=== PATIENT | female | born 1960 | race Caucasian/White ===

== ENCOUNTER → 2016-06-24 | Outpatient (CLI) | payer OTHER ==
[2015-10-14 16:52] VITALS: BP 131/81
[~2016-06-24] MED LIST: CYCL10TA2 PO; DULO60CA44 PO; ESOM40CA PO; ESTR1TAB15 PO; GABA800T2 PO; HYDR-2666 PO; MELO-150 PO; OXYC10TA32 PO; SULF1TAB24 PO; ZOLP10TA4 PO
[2016-06-24 11:46] LABS: CALCIUM 9.5 mg/dL (8.5-10.1); CREATININE 0.7 mg/dL (0.6-1.0); GFR 87.5; POTASSIUM 4.4 mmol/L (3.5-5.1)
--- NOTE | 2016-06-24 11:54 | RAD ---
Renal ultrasound, 06/24/2016: History: Urinary retention The right kidney measures 10.7 cm in length while left kidney measures 10.3 cm. There is no evidence of hydronephrosis or renal mass. The renal parenchymal echogenicity is within normal limits. Preliminary views of urinary bladder demonstrates a volume of 186 cc. No specific bladder abnormality is seen. A post voiding view demonstrates complete bladder emptying. IMPRESSION: 1. No significant renal abnormality is detected. 2. No significant post voiding residual urine in the bladder.
== END | disposition home or self-care (01) ==
LOC: US 10:20
PROVIDERS: ATTEND Nurse Practitioner Occupational Health
DX: R33.9 Retention of urine, unspecified (principal)
CPT/HCPCS: 36415; 76770; 80048

== ENCOUNTER → 2016-08-05 | Outpatient (CLI) | payer OTHER, MEDICARE ==
[2015-10-14 16:52] VITALS: BP 131/81
[2016-08-05 13:33] LABS: BASO % 1 % (0-3); EOS % 5 % (0-3); HEMATOCRIT 35.9 % (36.0-47.0); HEMOGLOBIN 11.2 g/dL (12.0-15.5); LYMPH # 1.7 x10^3/uL (1.0-4.8); LYMPH % 25 % (24-48); MEAN CORPUSCULAR HEMOGLOBIN 24 pg (25-35); MEAN CORPUSCULAR HGB CONC 31 g/dL (31-37); MEAN CORPUSCULAR VOLUME 78 fL (79-100); MONO % 6 % (0-9); NEUT % 63 % (31-73); PLATELET COUNT 219 x10^3/uL (140-400); RED BLOOD COUNT 4.62 x10^6/uL (3.50-5.40); RED CELL DISTRIBUTION WIDTH 17.3 % (11.5-14.5); WHITE BLOOD COUNT 6.8 x10^3/uL (4.0-11.0)
[2016-08-05 13:58] LABS: ALBUMIN 3.8 g/dL (3.4-5.0); CALCIUM 9.1 mg/dL (8.5-10.1); CREATININE 0.8 mg/dL (0.6-1.0); POTASSIUM 4.2 mmol/L (3.5-5.1); TOTAL BILIRUBIN 0.4 mg/dL (0.2-1.0); TOTAL PROTEIN 7.7 g/dL (6.4-8.2)
== END | disposition home or self-care (01) ==
LOC: LAB 12:44
PROVIDERS: ATTEND Nurse Practitioner Adult Health
DX: M79.7 Fibromyalgia (principal); M06.9 Rheumatoid arthritis, unspecified
CPT/HCPCS: 36415; 80053; 80061; 84443; 85027; 85651

== ENCOUNTER 2016-11-19 17:28 | Emergency (ER) | payer OTHER, MEDICARE ==
[~2016-11-19] VITALS: Ht 172.7 cm; Wt 106.6 kg
[~2016-11-19 17:28] MED LIST changes: -HYDR-2666 PO; +HYDR-2758 PO; -MELO-150 PO; +MELO15TA23 PO; -OXYC10TA32 PO; +OXYC10TA45 PO
[2016-11-19 17:40] VITALS: BP 124/60
--- NOTE | 2016-11-19 17:59 | PHYS DOC ---
Past Medical History Past Medical History: Arthritis, Fibromyalgia, GERD, Other Additional Past Medical Histor: rheumatoid and osteoarthritis, tmj Past Surgical History: Hysterectomy, Knee Replacement, Other Additional Past Surgical Histo: bilat knees, rt wrist cyst, lt. lumpectomy, bladder sling Alcohol Use: Occasionally Drug Use: None General Pediatric Assessment History of Present Illness History of Present Illness 56-year-old female presents to the emergency department stating that she fell last night on the deck and felt that she has a splinter in her right forearm. The area appears to be red swollen tender to touch with no drainage or discharge noted. No visible foreign body noted at the site. Patient states that her immunizations are not current and she is allergic to tetanus. Patient denies any numbness or tingling into the hands. Peripheral pulses are 2+ cap refill brisk less than 2 seconds. Review of Systems Review of Systems Constitutional: Denies fever or chills [] Eyes: Denies change in visual acuity, redness, or eye pain [] HENT: Denies nasal congestion or sore throat [] Respiratory: Denies cough or shortness of breath [] Cardiovascular: No additional information not addressed in HPI [] GI: Denies abdominal pain, nausea, vomiting, bloody stools or diarrhea [] : Denies dysuria or hematuria [] Musculoskeletal: Denies back pain or joint pain [] Integument: Denies rash or skin lesions. Complaint of foreign body right forearm Neurologic: Denies headache, focal weakness or sensory changes [] Endocrine: Denies polyuria or polydipsia [] Allergies Allergies Allergies Coded Allergies Type Severity Reaction Last Updated Verified Tetanus Vaccines and Toxoid Allergy Intermediate 11/18/14 Yes Physical Exam Physical Exam Constitutional: Well developed, well nourished, no acute distress, non-toxic appearance, positive interaction, playful. [] HENT: Normocephalic, atraumatic, bilateral external ears normal, oropharynx moist, no oral exudates, nose normal. [] Eyes: PERRLA, conjunctiva normal, no discharge. [] Neck: Normal range of motion, no tenderness, supple, no stridor. [] Cardiovascular: Normal heart rate, normal rhythm Thorax and Lungs: no respiratory distress Skin: Warm, dry, no erythema, no rash. Right forearm with redness and tenderness noted with no drainage or discharge noted no foreign body visualized. Back: No tenderness Extremities: Intact distal pulses, no tenderness, no cyanosis, ROM intact, no edema, no deformities. [] Neurologic: Alert and interactive, normal motor function, normal sensory function, no focal deficits noted. [] Vital Signs Vital Signs Date Time Temp Pulse Resp B/P (MAP) Pulse Ox O2 Delivery O2 Flow Rate FiO2 11/19/16 17:40 98.2 83 16 96 Room Air 98.2 Radiology/Procedures Radiology/Procedures [] Course & Med Decision Making Course & Med Decision Making Pertinent Labs and Imaging studies reviewed. (See chart for details) Dr. Ferrara evaluated the x-ray of the arm and he agrees there is no foreign bodies noted. He did come in and examine the patient and feels that he can palpate the foreign body. He will be providing lidocaine with epi and will be placing an incision and and exploring the area for a foreign body. Foreign body was removed by Dr. Ferrara. Patient will be placed on antibiotics Bactrim 1 tablet twice a day for the next 10 days. Recommended keeping the area clean and dry. Clean the site with soap and water and apply antibiotic ointment to the area twice a day. Patient will be discharged home in stable condition signs and symptoms to return back to emergency department as been provided. Questions for this patient has been answered at bedside. Procedure note Foreign body removal right forearm. A palpable foreign body was palpated just below puncture wound and subcutaneous tissue. Area was sterilely prepped with Betadine. 1% lidocaine with epinephrine was injected into this area following which a #11 blade was used to make An centimeter superficial incision. Wood splinter was then palpated and successfully removed with forceps. The cavity was then irrigated and reexplored with no other remaining foreign bodies present. The wound was not closed. Bacitracin was placed on top the wound and it was then bandaged. Typical wound care instructions given. Patient discharged with instruction with antibiotics. Dr. Josias Booth Disclaimer Emmy Disclaimer This electronic medical record was generated, in whole or in part, using a voice recognition dictation system. Departure Departure Impression: Primary Impression: Foreign body in right forearm Disposition: 01 HOME, SELF-CARE Condition: STABLE Referrals: MARISOL BOWEN Jr, MD (PCP) Patient Instructions: Foreign Body-Brief Additional Instructions: Keep the area clean and dry. Clean the site with soap and water twice a day and apply antibiotic ointment to the area. Antibiotic pills as prescribed: Bactrim. Tylenol or ibuprofen for pain and discomfort. He may also use ice packs on 20 minutes off 20 minutes several times today. Continue to watch for signs and symptoms of infection: Redness, warmth, tenderness or any yellow/greenish drainage of a come from the site. Physician occur you need to follow-up to primary care physician immediately. Follow-up through primary care physician in the next week to 2. Return back to emergency prior signs symptoms of become worse. Scripts Sulfamethoxazole/Trimethoprim (BACTRIM DS TABLET) 1 Each Tablet 1 TAB PO BID, #20 TAB Prov: DENISSE CAMPBELL APRN 11/19/16 DENISSE CAMPBELL APRN Nov 19, 2016 17:59 KAMILA FERRARA DO Nov 19, 2016 19:42
[2016-11-19] MEDS ORDERED: LIDOCAINE 1%/EPI 1:100,000 20 ML VIAL. INJ ONE ×2 (18:45)
[2016-11-19] MEDS ORDERED: SULF1TAB24 PO (19:07)
[2016-11-19] MEDS ORDERED: NEOMY/BACITR/POLYMYXIN OINT PACKET. TP ONE (19:12)
[2016-11-19] MEDS ORDERED: BACITRACIN TOPICAL OINT 14GM TUBE. TP ONE (19:15)
--- NOTE | 2016-11-20 10:25 | RAD ---
AP and lateral right forearm radiographs 11/19/2016 Clinical history: Splinter stuck in right forearm. AP and lateral digital radiographs of the right forearm were obtained. A partially visualized linear foreign body which may represent the patient's splinter is seen extending into the soft tissues of the distal right forearm. No fracture or dislocation is seen. Impression: Foreign body is seen as outlined above. No fracture or dislocation is seen.
== END 2016-11-19 19:15 | disposition home or self-care (01) ==
LOC: ER 17:28
DX: S50.851A Superficial foreign body of right forearm, initial encounter (principal); M19.90 Unspecified osteoarthritis, unspecified site; M79.7 Fibromyalgia; K21.9 Gastro-esophageal reflux disease without esophagitis; Z96.653 Presence of artificial knee joint, bilateral; Z88.7 Allergy status to serum and vaccine; Z90.710 Acquired absence of both cervix and uterus; Z96.0 Presence of urogenital implants; W45.8XXA Other foreign body or object entering through skin, initial encounter; Y93.89 Activity, other specified; Y92.89 Other specified places as the place of occurrence of the external cause; Y99.8 Other external cause status
CPT/HCPCS: 10120; 73090; 99285; J3490

== ENCOUNTER → 2017-03-10 | Outpatient (CLI) | payer OTHER, MEDICARE ==
[~2017-03-10] MED LIST changes: +DICY10CA3 PO; +FEXO180T81 PO; +IOHEXOL 180 MG/ML 10 ML VIAL. ONE; +methylPREDNISolone ACETATE 40 MG/ML VIAL. ONE; +methylPREDNISolone ACETATE 80 MG/ML VIAL. ONE
--- NOTE | 2017-03-10 18:38 | PAIN ---
DATE OF SERVICE: 03/10/2017 PROGRESS NOTE FOR PAIN CLINIC: DIAGNOSES: 1. Lumbago with low back pain, lumbar radiculopathy and lumbar degenerative disk disease. 2. Myofascial pain. HISTORY OF PRESENT ILLNESS: The patient is a 56-year-old female who returns for followup status post initial evaluation and medication management with oxycodone and hydrocodone. We discussed decreasing her doses and she has been doing this on her own to some extent where she is not needing as much pain medicine. She has been using some hemp seed oil, which has been helpful as well. The patient reports significant decrease in pain with this. She has been decreasing her OxyContin. We discussed dropping that from twice a day to once a day and the use of the hydrocodone 5 mg for breakthrough pain. The patient has been doing this with fairly good results so far. The patient reports about 40% improvement with the hemp seed oil and with the decrease in pain medication. The patient reports no new motor or sensory deficits, no new changes. We did get an MRI scan of the patient's lumbar spine. She had significant lumbar pain and radicular pain in the posterior gluteus and thighs for sometime discussed that with the patient today showing a L1-L2 5 mm right paracentral inferior disk extrusion superimposed on the right lateral prominent disk bulge and endplate osteophytosis at L4-L5 showing diffuse disk bulge with some mild to moderate right and moderate left foraminal stenosis and effacement of the exiting L4 nerve root with [id number] central canal stenosis. L5-S1 posterior central disk protrusion and bilateral paracentral to extraforaminal disk protrusions superimposed on disk bulge and endplate osteophytosis with severe to moderate left foraminal stenosis and effacement of the exiting left greater than right L5 nerve roots. The patient reports still some difficulty with walking, standing and changing positions, better with lying down or sitting. The patient reports it does not awaken her from sleep at night and the pain is across the low back into the posterior gluteus, posterior thighs to a fairly significant extent at this time. The patient rates her pain as an 8-9 on a scale of 10 at its worst, it is a 7 on average and a 4 at least and is a 4 today. No new motor or sensory deficits or changes are noted. PHYSICAL EXAMINATION: VITAL SIGNS: The patient's blood pressure 135/83, pulse 77, respirations 18, temperature 98.4 degrees Fahrenheit. Height 5 feet 8 inches, weight is 219 pounds. GENERAL: The patient is awake, alert, oriented, appropriate, very pleasant demeanor. HEENT: Head shows normocephalic, atraumatic. Extraocular movements are intact, symmetrical. Oral cavity: Mucous membranes moist and pink. Dentition is intact. NECK: Shows anterior throat supple without palpable lymphadenopathy noted. Swallow reflex symmetrical. CHEST: Shows normal on inspection. Breath sounds clear to auscultation bilaterally. HEART: Shows S1, S2 clear. No murmurs auscultated. ABDOMEN: Obese and soft, nontender, nondistended. No palpable organomegaly. No rebound or guarding demonstrated. BACK: Shows spine grossly in the midline. The patient's thoracic and lumbar spines are normal in curvature. Lumbar paraspinous muscle shows symmetrical with inspection, with palpation shows some moderate tenderness throughout the upper, middle, lower distribution of paraspinous muscles bilaterally. No tenderness with palpation over the sacrum or sacroiliac regions, however. The patient has good rotational motion of lumbar spine, both laterally as well as extension and flexion without significant difficulty. EXTREMITIES: Lower extremities show deep tendon reflexes 2+ in the patellar tendons, 1+ tendo calcaneus tendons. Motor exam shows approximately 4-5 and equal and symmetrical bilaterally, dorsiflexion, extension and quadriceps and hamstring flexion. Peripheral pulses are 1+ posterior tibia. No peripheral edema is noted. Options were discussed with the patient. The patient's old chart was reviewed as her current medication regimen updated her review of systems updated today as well. We will proceed with a lumbar epidural steroid injection today with fluoroscopic guidance. Risks were discussed including but not limited to bleeding, infection, possibility of epidural hematoma, subsequent neurologic compromise, dural puncture, headaches, spinal cord and/or nerve damage, side effects of steroid medication and poor results regarding pain control. The patient understands and wished to proceed. The patient will return to clinic in approximately 2 weeks for followup. She was counseled troponin still on side effects to be aware of. Also, encouraged the patient to decrease her oxycodone and hydrocodone use as tolerated. We will refill the patient's prescriptions for just once a day, OxyContin and in between breakthrough pain for hydrocodone up to 4 times a day if needed. The patient will continue to use her hemp seed oil as this seems to help her pain significantly as well. We increased with stretching and strengthening exercises encouraged to walk and exercise as tolerated and will follow up as scheduled. DIAGNOSES: Low back pain, lumbar radiculopathy with lumbar degenerative disk disease, and lumbar spinal stenosis. PROCEDURE: Lumbar epidural steroid injection, translaminar approach under serum fluoroscopic guidance under sterile prep and drape using local anesthetic. Medication injected a total of 120 mg Depo-Medrol plus 10 mL preservative-free normal saline, 2 mL of Isovue for contrast. CONDITION AT DISCHARGE: Stable. The patient tolerated the procedure well, had no complications. ABILIO SIDDIQUI MD DR: JUNE/sofia JOB#: [id number] / [id number]
== END | disposition home or self-care (01) ==
LOC: PNCL 10:15
PROVIDERS: ATTEND Anesthesiology
DX: M51.16 Intervertebral disc disorders with radiculopathy, lumbar region (principal); M48.061 Spinal stenosis, lumbar region without neurogenic claudication; Z88.7 Allergy status to serum and vaccine; Z88.8 Allergy status to other drugs, medicaments and biological substances
CPT/HCPCS: 62323; J1030; J1040

== ENCOUNTER → 2017-07-06 | Outpatient (CLI) | payer OTHER, MEDICARE ==
[~2017-07-06] MED LIST changes: -CYCL10TA2 PO; -DICY10CA3 PO; -DULO60CA44 PO; -ESOM40CA PO; -ESTR1TAB15 PO; -FEXO180T81 PO; -GABA800T2 PO; -HYDR-2758 PO; +IOHEXOL 180 MG/ML 10 ML VIAL.; -IOHEXOL 180 MG/ML 10 ML VIAL. ONE; -MELO15TA23 PO; -OXYC10TA45 PO; -SULF1TAB24 PO; -ZOLP10TA4 PO; +methylPREDNISolone ACETATE 40 MG/ML VIAL.; -methylPREDNISolone ACETATE 40 MG/ML VIAL. ONE; +methylPREDNISolone ACETATE 80 MG/ML VIAL.; -methylPREDNISolone ACETATE 80 MG/ML VIAL. ONE
== END | disposition home or self-care (01) ==
LOC: PNCL 09:54
DX: M51.16 Intervertebral disc disorders with radiculopathy, lumbar region (principal); M48.061 Spinal stenosis, lumbar region without neurogenic claudication; G89.29 Other chronic pain; Z79.891 Long term (current) use of opiate analgesic; Z79.899 Other long term (current) drug therapy
CPT/HCPCS: 62323; J1030; J1040; Q9965

== ENCOUNTER → 2017-08-24 | Outpatient (CLI) | payer OTHER, MEDICARE | LOC: PNCL 09:29 | DX: M51.16 Intervertebral disc disorders with radiculopathy, lumbar region (principal); M48.061 Spinal stenosis, lumbar region without neurogenic claudication; M79.1 Myalgia | CPT/HCPCS: 62323; J1030; J1040; Q9965 ==

== ENCOUNTER 2017-09-30 13:19 | Emergency (ER) | payer OTHER, MEDICARE ==
[2017-09-30] MEDS: MORPHINE SULFATE 10 MG/ML VIAL. IM (13:52)
[2017-09-30] MEDS: predniSONE 20 MG TABLET PO (13:52)
[2017-09-30] MEDS: diazePAM 5 MG TABLET PO (13:53)
== END 2017-09-30 15:03 | disposition home or self-care (01) ==
LOC: ER 13:19
DX: G89.29 Other chronic pain (principal); M54.5 Low back pain; K21.9 Gastro-esophageal reflux disease without esophagitis; Z90.710 Acquired absence of both cervix and uterus; M79.7 Fibromyalgia; M19.90 Unspecified osteoarthritis, unspecified site; Z88.7 Allergy status to serum and vaccine
CPT/HCPCS: 96372; 99283; J2270; J7512

== ENCOUNTER 2017-10-15 09:27 | Emergency (ER) | payer OTHER, MEDICARE | END 2017-10-15 10:34 | disposition home or self-care (01) | LOC: ER 10:34 | DX: G89.29 Other chronic pain (principal); K21.9 Gastro-esophageal reflux disease without esophagitis; M54.89 Other dorsalgia; M54.32 Sciatica, left side; F31.9 Bipolar disorder, unspecified; Z90.710 Acquired absence of both cervix and uterus | CPT/HCPCS: 99283 ==

== ENCOUNTER → 2017-10-23 | Outpatient (CLI) | payer OTHER, MEDICARE ==
[~2017-10-23] MED LIST changes: +LIDOCAINE 1% PF 2 ML VIAL.
== END ==
LOC: PNCL 08:59
DX: M51.16 Intervertebral disc disorders with radiculopathy, lumbar region (principal); M48.061 Spinal stenosis, lumbar region without neurogenic claudication; K21.9 Gastro-esophageal reflux disease without esophagitis; G89.29 Other chronic pain; M19.90 Unspecified osteoarthritis, unspecified site; Z88.7 Allergy status to serum and vaccine; Z90.710 Acquired absence of both cervix and uterus; Z79.899 Other long term (current) drug therapy
CPT/HCPCS: 62323; J1030; J1040; Q9965

== ENCOUNTER → 2017-10-27 | Outpatient (CLI) | payer OTHER, MEDICARE | END | disposition home or self-care (01) | LOC: KCIC MRI 14:35 | DX: M51.36 Other intervertebral disc degeneration, lumbar region (principal); M48.061 Spinal stenosis, lumbar region without neurogenic claudication; J44.9 Chronic obstructive pulmonary disease, unspecified; K21.9 Gastro-esophageal reflux disease without esophagitis | CPT/HCPCS: 72148 ==

== ENCOUNTER → 2017-11-06 | Outpatient (CLI) | payer OTHER, MEDICARE ==
[2017-11-06 16:00] LABS: ADD MAN DIFF? NO
[2017-11-06 16:02] LABS: BASO # 0.1 x10^3/uL (0.0-0.2); BASO % 1 % (0-3); EOS # 0.1 x10^3/uL (0.0-0.7); EOS % 1 % (0-3); HEMATOCRIT 37.6 % (36.0-47.0); HEMOGLOBIN 12.3 g/dL (12.0-15.5); LYMPH # 2.2 x10^3/uL (1.0-4.8); LYMPH % 21 % (24-48); MEAN CORPUSCULAR HEMOGLOBIN 27 pg (25-35); MEAN CORPUSCULAR HGB CONC 33 g/dL (31-37); MEAN CORPUSCULAR VOLUME 82 fL (79-100); MONO # 0.6 x10^3/uL (0.0-1.1); MONO % 6 % (0-9); NEUT # 7.5 x10^3uL (1.8-7.7); NEUT % 72 % (31-73); PLATELET COUNT 284 x10^3/uL (140-400); RED CELL DISTRIBUTION WIDTH 16.1 % (11.5-14.5); WHITE BLOOD COUNT 10.5 x10^3/uL (4.0-11.0)
[2017-11-06 16:31] LABS: ALBUMIN 3.7 g/dL (3.4-5.0); ALBUMIN/GLOBULIN RATIO 0.9 (1.0-1.7); ALK PHOS 105 U/L (46-116); ALT (SGPT) 31 U/L (14-59); ANION GAP 9 (6-14); AST (SGOT) 19 U/L (15-37); BLOOD UREA NITROGEN 23 mg/dL (7-20); BUN/CREATININE RATIO 29 (6-20); CALCIUM 8.8 mg/dL (8.5-10.1); CARBON DIOXIDE 28 mmol/L (21-32); CHLORIDE 102 mmol/L (98-107); CREATININE 0.8 mg/dL (0.6-1.0); GFR 74.5; GLUCOSE 90 mg/dL (70-99); SODIUM 139 mmol/L (136-145); TOTAL BILIRUBIN 0.5 mg/dL (0.2-1.0); TOTAL PROTEIN 7.6 g/dL (6.4-8.2)
[2017-11-07 07:39] LABS: MRSA BY PCR Negative (Negative)
== END | disposition home or self-care (01) ==
LOC: SURGPAT 13:35
DX: Z01.818 Encounter for other preprocedural examination (principal); M51.16 Intervertebral disc disorders with radiculopathy, lumbar region; J44.9 Chronic obstructive pulmonary disease, unspecified; K21.9 Gastro-esophageal reflux disease without esophagitis; Z90.710 Acquired absence of both cervix and uterus; Z96.653 Presence of artificial knee joint, bilateral; Z88.7 Allergy status to serum and vaccine
CPT/HCPCS: 36415; 80053; 85025; 87641

== ENCOUNTER 2017-11-13 08:13 | Observation (INO) | payer MEDICARE, OTHER ==
--- NOTE | 2017-11-10 15:33 | HP ---
ADMIT DATE: 11/13/2017 DATE OF SURGERY: 11/13/2017 HISTORY OF PRESENT ILLNESS: The patient is a pleasant 57-year-old who is having low back pain which is greater on the left side. There is also pain that radiates into her left lateral thigh and leg. She notes numbness in the left inguinal region as well as the lateral thigh and leg. There is no problem on the right side. She had epidural steroid injections, which she said helped for a short term, but are no longer helpful. She went through physical therapy about 4 months ago, which she said has not really been helpful for her. She does use a walker to help her with ambulation. She has been seen in the Emergency Room at [facility]. PAST MEDICAL HISTORY: Arthritis, rheumatoid arthritis, fibromyalgia, headaches. PAST SURGICAL HISTORY: Right wrist cyst, hysterectomy, left knee replacement, right knee replacement, left lump breast. FAMILY HISTORY: Cancer. SOCIAL HISTORY: Disabled. . Quit smoking 10 years ago. Drinks alcohol 1-2 times per month. ALLERGIES: TETANUS. CURRENT MEDICATIONS: Oxycodone, gabapentin, esomeprazole sodium, estradiol, cyclobenzaprine, zolpidem tartrate, meloxicam, duloxetine, [place], OxyContin, lorazepam, ClearLax, multivitamin. REVIEW OF SYSTEMS: A 12-point review of systems was obtained and is noncontributory except for that mentioned above. PHYSICAL EXAMINATION: NEUROSURGERY EXAMINATION: GENERAL APPEARANCE: Alert, pleasant, no acute distress. HEAD: Normocephalic and atraumatic. SKIN: Warm and dry. MUSCULOSKELETAL: Lumbar paraspinal muscle bulk is normal, restricted range of motion of lumbar spine, [id number] tenderness of lower lumbar spine with palpation, normal range of motion of the lower extremities bilaterally. EXTREMITIES: No clubbing, cyanosis or edema. NEUROLOGIC: Alert and oriented x 3, normal recent and remote memory, strength 5/5 in bilateral lower extremities, sensory was intact to light touch in bilateral lower extremities except for decrease in sensation in the anterior lateral proximal thigh on the left, reflexes were present and symmetric in the lower extremities bilaterally, negative straight leg raising bilaterally, walks with a walker because of severe left hip and leg pain. IMAGING: I reviewed a lumbar MRI scan. On that study, there was a large inferiorly extruded left focal disk herniation from L1-L2 which is behind the mid and upper portion of L2 on the left side and which is associated with severe left canal stenosis. She also has moderately severe diffuse degenerative changes throughout the remainder of her lumbar spine, which includes moderate stenosis at L3-L4 and moderate stenosis at L4-L5. ASSESSMENT/PLAN: She is having an exacerbation of her chronic moderately severe back pain. I believe this is due to new disk herniation with the inferior fragment at L1-L2 on the left. My recommendation at this point, because of her severe pain, is for her to undergo lumbar microsurgery to address this at L1-L2. I explained, however, this treatment would not alleviate all of her pain, but would take her back to her baseline level of discomfort which existed prior to the disk herniation. I outlined the surgery and the risks involved. I explained the rationale for the surgery. She understands. She would like to go ahead. We will make the arrangements. LAQUITA MAST MD DR: DEDRICK/sofia JOB#: [id number] / [id number] ERNST
[2017-11-13] VITALS (8 sets, daily range): BP systolic 11–119; BP diastolic 56–73
[~2017-11-13] VITALS: Ht 172.7 cm; Wt 95.3 kg
[~2017-11-13 08:13] MED LIST changes: +BACITRACIN 50,000 UNIT in IV NORMAL SALINE 1000ML BAG 1,000 ML IRR ONE; +BUPIVAC MPF-EPI 0.5%-1:200000 30 ML VIAL. INJ ONE; +CYCL10TA2 PO; +DICY10CA3 PO; +DULO60CA44 PO; +ESOM40CA PO; +ESTR1TAB15 PO; +FEXO180T81 PO; +GABA800T2 PO; +GELATIN SPONGE SIZE 100. ONE; +HYDR-2758 PO; -IOHEXOL 180 MG/ML 10 ML VIAL.; +IV RINGERS,LACTATED 1000ML 1,000 ML IV SCH; +KETOROLAC 60 MG/2 ML INJ FOR OR. ONE; -LIDOCAINE 1% PF 2 ML VIAL.; +LIDOCAINE 1% PF 2 ML VIAL. ID PRN; +MELO15TA23 PO; +MORPHINE SULFATE 2 MG/ML VIAL. IV PRN; +ONDANSETRON PF 4 MG/2 ML VIAL. IV PRN; +OXYC-323 PO; +OXYC10TA PO; +OXYC10TA45 PO; +POLY17PO29 PO; +PRED20TA PO; +PROCHLORPERAZINE 10 MG/2 ML VIAL. IV PRN; +SULF1TAB24 PO; +THROMBIN TOPICAL 20,000 UNIT SPRAY.SYRN KIT TP ONE; +VALIUM10 MG PO; +ZOLP10TA4 PO; +ceFAZolin 2GM PREMIX 2 GM/50 ML BAG IV ONE; +fentaNYL PF VIAL 100 MCG/2 ML VIAL IV PRN; -methylPREDNISolone ACETATE 40 MG/ML VIAL.; -methylPREDNISolone ACETATE 80 MG/ML VIAL.
[2017-11-13] MEDS ORDERED: PROPOFOL 100 ML IV ONE (08:15)
[2017-11-13] MEDS ORDERED: REMIFENTANIL 1 MG VIAL. IV ONE (08:30)
[2017-11-13] MEDS ORDERED: MIDAZOLAM HCL/PF 2 MG/2 ML VIAL. ONE (09:09)
[2017-11-13] MEDS ORDERED: DESFLURANE > 120 MINUTES IH ONE ×2 (09:09→15:19)
[2017-11-13] MEDS ORDERED: fentaNYL PF VIAL 100 MCG/2 ML VIAL ONE ×2 (09:09→15:01)
[2017-11-13] MEDS ORDERED: ROCURONIUM 50 MG/5 ML VIAL. ONE (09:10)
[2017-11-13] MEDS ORDERED: NEOSTIGMINE METHYLSULFATE 5 MG/5 ML SYRINGE. ONE (09:10)
[2017-11-13] MEDS ORDERED: GLYCOPYRROLATE 1 MG/5 ML VIAL. ONE ×2 (09:10→13:37)
[2017-11-13] MEDS ORDERED: ONDANSETRON PF 4 MG/2 ML VIAL. ONE (09:12)
[2017-11-13] MEDS ORDERED: PROPOFOL 20 ML IV ONE (09:12)
[2017-11-13] MEDS ORDERED: LIDOCAINE 2% PF Vial for OR 5 ML VIAL. ONE (09:12)
[2017-11-13] MEDS ORDERED: DEXAMETHASONE SOD PHOS 20 MG/5 ML VIAL. ONE (09:12)
[2017-11-13] MEDS ORDERED: PHENYLEPHRINE in 0.9% NACL PF 1 MG/10 ML SYRINGE. IV ONE (09:13)
[2017-11-13] MEDS ORDERED: ePHEDrine PF IN SALINE 50 MG/5 ML DISP.SYRIN IV ONE (13:03)
[2017-11-13] MEDS ORDERED: PHENYLEPHRINE 10 MG/ML VIAL. ONE (13:09)
[2017-11-13] MEDS: fentaNYL PF VIAL 100 MCG/2 ML VIAL IV PRN ×3 (16:00→16:40)
[2017-11-13] MEDS ORDERED: CYCLOBENZAPRINE 10 MG TABLET. PO PRN (18:15)
[2017-11-13] MEDS ORDERED: oxyCODONE ER 10 MG TAB.ER.12H PO PRN (18:15)
[2017-11-13] MEDS ORDERED: diphenhydrAMINE HCL 25 MG CAPSULE PO PRN (18:30)
[2017-11-13] MEDS ORDERED: diphenhydrAMINE 50 MG/ML VIAL IV PRN (18:30)
[2017-11-13] MEDS ORDERED: CALCIUM CARBONATE 500 MG TAB.CHEW PO PRN (18:30)
[2017-11-13] MEDS ORDERED: MAG HYDROX/ALUMINUM HYD/SIMETH 30 ML ORAL.SUSP PO PRN (18:30)
[2017-11-13] MEDS ORDERED: MAGNESIUM HYDROXIDE 2,400 MG/30 ML ORAL.SUSP. PO PRN (18:30)
[2017-11-13] MEDS ORDERED: 0.9 % SODIUM CHLORIDE 10 ML DISP.SYRIN. IV PRN (18:30)
[2017-11-13] MEDS ORDERED: fentaNYL PF VIAL 100 MCG/2 ML VIAL IV PRN (18:30)
[2017-11-13] MEDS ORDERED: ZOLPIDEM 5 MG TABLET. PO PRN (18:30)
[2017-11-13] MEDS ORDERED: diazePAM 5 MG TABLET PO PRN (18:30)
[2017-11-13] MEDS ORDERED: HYDROcodone/APAP 5/325MG 1 TAB TABLET PO PRN (18:30)
[2017-11-13] MEDS ORDERED: ACETAMINOPHEN 325 MG TABLET. PO PRN (18:30)
[2017-11-13] MEDS: POTASSIUM CL 20MEQ D5-0.45NACL 1,000 ML IV SCH (19:00)
[2017-11-13] MEDS ORDERED: POLYVINYL ALCOHOL 1.4% OPHTH SOLUTION 15ML BOTTLE. OU PRN (21:45)
[2017-11-13] MEDS: DOCUSATE SODIUM 100 MG CAPSULE. PO SCH (22:03)
[2017-11-13] MEDS: GABAPENTIN 300 MG CAPSULE. PO SCH (22:03)
[2017-11-13] MEDS: HYDROcodone/APAP 5/325MG 1 TAB TABLET PO PRN (22:04)
[2017-11-14 03:00] VITALS: BP 104/67
[2017-11-14] MEDS: HYDROcodone/APAP 5/325MG 1 TAB TABLET PO PRN (04:57)
[2017-11-14 07:00] VITALS: BP 117/75
[2017-11-14] MEDS: POTASSIUM CL 20MEQ D5-0.45NACL 1,000 ML IV SCH (07:29)
[2017-11-14] MEDS ORDERED: PANTOPRAZOLE 40 MG TABLET.DR. PO SCH (07:30)
[2017-11-14] MEDS: GABAPENTIN 300 MG CAPSULE. PO SCH (08:06)
[2017-11-14] MEDS: DOCUSATE SODIUM 100 MG CAPSULE. PO SCH (08:06)
[2017-11-14] MEDS ORDERED: POLYETHYLENE GLYCOL 3350 17 GM PACKET. PO SCH (09:00)
[2017-11-14] MEDS ORDERED: MELOXICAM 7.5 MG TABLET PO SCH (09:00)
[2017-11-14] MEDS ORDERED: ESTRADIOL 1 MG TABLET. PO SCH (09:00)
[2017-11-14] MEDS ORDERED: DULoxetine HCL 30 MG CAPSULE.DR PO SCH (09:00)
[2017-11-14] MEDS ORDERED: CETIRIZINE HCL 10 MG TABLET. PO SCH (09:00)
--- NOTE | 2017-11-14 10:24 | DISCH ---
DISCHARGE INSTRUCTIONS Condition on Discharge Condition on Discharge: Stable Activity After Discharge Activity Instructions for Disc: Activity as tolerated, Avoid exertion Other activity instructions: no driving for a week Bathing Instructions: Shower-keep dressing dry Lifting Instructions after Dis: No heavy lifting, No pulling or pushing, Do not lift >10 pounds Diet after Discharge Additional Diet Restrictions: resume home diet Wound Incision Care Wound/Incision Care: Ice to area for comfort Other wound/incision instructi: may remove dressing in 48 hrs if dry then may shower, no soaking Contacting the after DC Call your doctor for: Concerns you may have Follow-Up Follow up with: Dr. Mast's nurse in 2 weeks [phone] LAQUITA MAST MD Nov 14, 2017 10:24
--- NOTE | 2017-11-14 10:35 | PDOC ---
PROGRESS NOTES Subjective Subjective POD #1 Left leg pain improved ambulating in room and walk without difficulty Objective Objective Vital Signs Date Time Temp Pulse Resp B/P (MAP) Pulse Ox O2 Delivery O2 Flow Rate FiO2 11/14/17 08:00 Non-Rebreather 11/14/17 07:00 97.5 75 20 117/75 (89) 96 97.5 11/13/17 18:22 2.0 Intake and Output 11/14/17 07:00 Intake Total 2260 ml Output Total 600 ml Balance 1660 ml Intake Oral 1010 ml IV Total 1250 ml Output Urine Total 550 ml Estimated Blood Loss 50 ml # Voids 2 Physical Exam Neuro: Normal speech, Other (URBINA) Skin: Other (dressing C,D,I, flat) Plan Plan of Care dc home f/u 2 weeks Comment Review of Relevant I have reviewed the following items eliel (where applicable) has been applied. Medications Current Medications Prochlorperazine Edisylate (Compazine) 5 mg PACU PRN PRN IV NAUSEA, MRX1; Start 11/13/17 at 07:00; Stop 11/14/17 at 06:59; Status DC Lidocaine HCl (Xylocaine-Mpf 1% Vial) 2 ml PRN 1X PRN ID PRIOR TO IV START; Start 11/13/17 at 07:00; Stop 11/14/17 at 06:59; Status DC Ringer's Solution 1,000 ml @ 30 mls/hr Q24H IV Last administered on 11/13/17at 08:44; Start 11/13/17 at 07:00; Stop 11/13/17 at 18:59; Status DC Morphine Sulfate (Morphine Sulfate) 1 mg PRN Q10MIN PRN IV SEVERE PAIN; Start 11/13/17 at 07:00; Stop 11/14/17 at 06:59; Status DC Fentanyl Citrate (Fentanyl 2ml Vial) 50 mcg PRN Q5MIN PRN IV MODERATE TO SEVERE PAIN Last administered on 11/13/17at 16:40; Start 11/13/17 at 07:00; Stop at 06:59; Status DC Fentanyl Citrate (Fentanyl 2ml Vial) 25 mcg PRN Q5MIN PRN IV MILD PAIN; Start 11/13/17 at 07:00; Stop 11/14/17 at 06:59; Status DC Ondansetron HCl (Zofran) 4 mg PRN Q6HRS PRN IV NAUSEA/VOMITING; Start 11/13/17 at 07:00; Stop 11/14/17 at 06:59; Status DC Bacitracin 26263 unit/Sodium Chloride 1,000 ml @ 1,000 mls/hr 1X ONCE IRR Last administered on 11/13/17at 12:59; Start 11/13/17 at 06:00; Stop 11/13/17 at 06: 59; Status DC Cefazolin Sodium/ Dextrose 50 ml @ 100 mls/hr 1X PREOP PRN IV PRIOR TO PROCEDURE Last administered on 11/13/17at 12:20; Start 11/13/17 at 06:00; Stop 11/13 at 18:00; Status DC Gelatin (Gelfoam Size 100) 1 each STK-MED ONCE .ROUTE Last administered on 11/13at 12:59; Start 11/13/17 at 06:18; Stop 11/13/17 at 07:19; Status DC Ketorolac Tromethamine (Toradol For Or Only) 60 mg STK-MED ONCE .ROUTE Last administered on 11/13/17at 12:59; Start 11/13/17 at 06:18; Stop 11/13/17 at 07:19; Status DC Thrombin 20,000 unit STK-MED ONCE TP Last administered on 11/13/17at 12:59; Start 11/13/17 at 06:18; Stop 11/13/17 at 07:20; Status DC Bupivacaine HCl/ Epinephrine Bitart (Sensorcain-Mpf Epi 0.5%-1:[id number]) 30 ml 1X ONCE INJ Last administered on 11/13/17at 12:59; Start 11/13/17 at 07:30; Stop at 07:31; Status DC Remifentanil HCl (Ultiva) 1 mg ONCE ONCE IV ; Start 11/13/17 at 08:30; Stop 11/13 at 08:31; Status DC Desflurane (Suprane) 90 ml STK-MED ONCE IH ; Start 11/13/17 at 09:09; Stop at 09:10; Status DC Midazolam HCl (Versed) 2 mg STK-MED ONCE .ROUTE ; Start 11/13/17 at 09:09; Stop 11/13/17 at 09:10; Status DC Fentanyl Citrate (Fentanyl 2ml Vial) 100 mcg STK-MED ONCE .ROUTE ; Start at 09:09; Stop 11/13/17 at 09:11; Status DC Glycopyrrolate (Robinul) 1 mg STK-MED ONCE .ROUTE ; Start 11/13/17 at 09:10; Stop 11/13/17 at 09:11; Status DC Neostigmine Methylsulfate (Neostigmine Methylsulfate) 5 mg STK-MED ONCE .ROUTE ; Start 11/13/17 at 09:10; Stop 11/13/17 at 09:11; Status DC Rocuronium [place] (Zemuron) 50 mg STK-MED ONCE .ROUTE ; Start 11/13/17 at 09:10 ; Stop 11/13/17 at 09:11; Status DC Propofol 20 ml @ As Directed STK-MED ONCE IV ; Start 11/13/17 at 09:12; Stop 11/13 at 09:14; Status DC Lidocaine HCl (Lidocaine Pf 2% Vial) 5 ml STK-MED ONCE .ROUTE ; Start 11/13/17 at 09:12; Stop 11/13/17 at 09:14; Status DC Dexamethasone Sodium Phosphate (Decadron) 20 mg STK-MED ONCE .ROUTE ; Start 11/13 at 09:12; Stop 11/13/17 at 09:14; Status DC Ondansetron HCl (Zofran) 4 mg STK-MED ONCE .ROUTE ; Start 11/13/17 at 09:12; Stop 11/13/17 at 09:14; Status DC Phenylephrine HCl (PHENYLEPHRINE in 0.9% NACL PF) 1 mg STK-MED ONCE IV ; Start 11/13/17 at 09:13; Stop 11/13/17 at 09:14; Status DC Propofol 100 ml @ As Directed STK-MED ONCE IV ; Start 11/13/17 at 08:15; Stop at 09:16; Status DC Ephedrine Sulfate (ePHEDrine PF IN SALINE SYRINGE) 50 mg STK-MED ONCE IV ; Start 11/13/17 at 13:03; Stop 11/13/17 at 13:04; Status DC Phenylephrine HCl (Eddy-Synephrine Inj) 10 mg STK-MED ONCE .ROUTE ; Start at 13:09; Stop 11/13/17 at 13:10; Status DC Glycopyrrolate (Robinul) 1 mg STK-MED ONCE .ROUTE ; Start 11/13/17 at 13:37; Stop 11/13/17 at 13:38; Status DC Fentanyl Citrate (Fentanyl 2ml Vial) 100 mcg STK-MED ONCE .ROUTE ; Start at 15:01; Stop 11/13/17 at 15:02; Status DC Desflurane (Suprane) 90 ml STK-MED ONCE IH ; Start 11/13/17 at 15:19; Stop at 15:20; Status DC Cyclobenzaprine HCl (Flexeril) 10 mg PRN TID PRN PO MUSCLE SPASMS 1ST CHOICE Last administered on 11/13/17at 22:03; Start 11/13/17 at 18:15 Estradiol (Estrace) 1 mg DAILY PO Last administered on 11/14/17at 08:06; Start at 09:00 Oxycodone HCl (OxyCONTIN) 10 mg PRN DAILY PRN PO SEVERE PAIN 2ND CHOICE; Start 11/13/17 at 18:15 Diazepam (Valium) 10 mg PRN BID PRN PO MUSCLE SPASMS 2ND CHOICE; Start 11/13/17 at 18:30 Duloxetine HCl (Cymbalta) 60 mg DAILY PO Last administered on 11/14/17at 08:06; Start 11/14/17 at 09:00 Pantoprazole Sodium (Protonix) 40 mg DAILYAC PO Last administered on 11/14/17at 08:06; Start 11/14/17 at 07:30 Cetirizine HCl (ZyrTEC) 10 mg DAILY PO Last administered on 11/14/17at 08:06; Start 11/14/17 at 09:00 Gabapentin (Neurontin) 900 mg TID PO Last administered on 11/14/17at 08:06; Start 11/13/17 at 21:00 Meloxicam (Mobic) 15 mg DAILY PO Last administered on 11/14/17at 08:07; Start 11/14/17 at 09:00 Polyethylene Glycol (miraLAX PACKET) 17 gm DAILY PO Last administered on at 08:05; Start 11/14/17 at 09:00 Zolpidem Tartrate (Ambien) 5 mg PRN QHS PRN PO INSOMNIA Last administered on 11/13/17at 22:03; Start 11/13/17 at 18:30 Fentanyl Citrate (Fentanyl 2ml Vial) 50 mcg PRN Q2HR PRN IV PAIN; Start at 18:30 Acetaminophen (Tylenol) 650 mg PRN Q6HRS PRN PO MILD PAIN / TEMP; Start at 18:30 Al Hydroxide/Mg Hydroxide (Mylanta Plus Xs) 30 ml PRN Q3HRS PRN PO HEARTBURN / GAS; Start 11/13/17 at 18:30 Calcium Carbonate/ Glycine (Tums) 500 mg PRN Q3HRS PRN PO INDIGESTION; Start at 18:30 Diphenhydramine HCl (Benadryl) 25 mg PRN Q6HRS PRN PO ITCHING; Start 11/13/17 at 18:30 Diphenhydramine HCl (Benadryl) 25 mg PRN Q6HRS PRN IV ITCHING; Start 11/13/17 at 18:30 Sodium Chloride (Normal Saline Flush) 3 ml QSHIFT PRN IV AFTER MEDS AND BLOOD DRAWS; Start 11/13/17 at 18:30 Potassium Chloride/Dextrose/ Sod Cl 1,000 ml @ 75 mls/hr [id number] IV ; Start 11/13/17 at 19:00 Acetaminophen/ Hydrocodone Bitart (Lortab 5/325) 1 tab PRN Q4HRS PRN PO MODERATE PAIN 1ST CHOICE Last administered on 11/14/17at 04:57; Start 11/13/17 at 18:30 Acetaminophen/ Hydrocodone Bitart (Lortab 5/325) 2 tab PRN Q4HRS PRN PO SEVERE PAIN 1ST CHOICE Last administered on 11/14/17at 09:13; Start 11/13/17 at 18:30 Docusate Sodium (Colace) 100 mg BID PO Last administered on 11/14/17at 08:06; Start 11/13/17 at 21:00 Magnesium Hydroxide (Milk Of Magnesia) 2,400 mg PRN Q12HR PRN PO CONSTIPATION; Start 11/13/17 at 18:30 Artificial Tears (Artificial Tears) 1 drop PRN Q15MIN PRN OU DRY EYE Last administered on 11/13/17at 22:04; Start 11/13/17 at 21:45 Active Scripts Active Valium (Diazepam) 10 Mg Tablet 10 Mg PO BID PRN Reported Estradiol 1 Mg Tablet 1 Tab PO DAILY Miralax (Polyethylene Glycol 3350) 17 Gm Powd.pack 1 Packet PO DAILY Cyclobenzaprine Hcl 10 Mg Tablet 1 Tab PO TID PRN Lillie Allergy (Fexofenadine Hcl) 180 Mg Tablet 1 Tab PO DAILY Duloxetine Hcl 60 Mg Capsule.dr 60 Mg PO DAILY Nexium Capsule (Esomeprazole Magnesium) 40 Mg Capsule.dr 40 Mg PO DAILYAC Meloxicam 15 Mg Tablet 15 Mg PO DAILY Hydrocodone-Apap 5-325 (Hydrocodone Bit/Acetaminophen) 1 Each Tablet 1-2 Tab PO Q4-6HRS PRN Oxycontin (Oxycodone HCl) 10 Mg Tab.er.12h 10 Mg PO DAILY PRN Gabapentin 800 Mg Tablet 900 Mg PO TID Zolpidem Tartrate 10 Mg Tablet 10 Mg PO PRN QHS PRN Vitals/I & O Vital Sign - Last 24 Hours 11/13/17 11/13/17 11/13/17 11/13/17 15:44 16:00 16:00 16:15 Temp 98.9 98.9 Pulse 92 85 87 Resp 16 16 20 16 B/P (MAP) 119/73 99/48 115/62 Pulse Ox 99 100 97 93 O2 Delivery Simple Mask Simple Mask Simple Mask Room Air O2 Flow Rate 8 8.0 8 11/13/17 11/13/17 11/13/17 11/13/17 16:22 16:30 16:40 16:50 Temp 97.6 97.6 Pulse 89 91 Resp 12 12 12 16 B/P (MAP) 118/64 107/56 (73) Pulse Ox 92 96 95 94 O2 Delivery Room Air Nasal Cannula Nasal Cannula Room Air O2 Flow Rate 2 2.0 11/13/17 11/13/17 11/13/17 11/13/17 17:05 17:20 17:35 18:00 Pulse 85 81 79 78 Resp 16 16 16 16 B/P (MAP) 116/63 (80) 116/67 (83) 114/60 (78) 100/61 (74) Pulse Ox 94 96 97 96 O2 Delivery Room Air Room Air Room Air Room Air 11/13/17 11/13/17 11/13/17 11/13/17 18:22 18:30 19:00 19:50 Temp 97.9 97.7 97.9 97.7 Pulse 96 84 Resp 16 18 B/P (MAP) 11/64 (47) 119/73 (88) Pulse Ox 96 96 O2 Delivery Nasal Cannula Room Air Room Air Room Air O2 Flow Rate 2.0 11/13/17 11/13/17 11/14/17 11/14/17 22:04 23:00 03:00 04:57 Temp 98.1 97.6 98.1 97.6 Pulse 79 76 Resp 16 18 18 16 B/P (MAP) 109/67 (81) 104/67 (79) Pulse Ox 92 96 O2 Delivery Room Air Room Air Room Air Room Air 11/14/17 11/14/17 11/14/17 05:58 07:00 08:00 Temp 97.5 97.5 Pulse 75 Resp 16 20 B/P (MAP) 117/75 (89) Pulse Ox 96 O2 Delivery Room Air Room Air Non-Rebreather Intake and Output 11/13/17 11/13/17 11/14/17 15:00 23:00 07:00 Intake Total 50 ml 1550 ml 660 ml Output Total 600 ml Balance 50 ml 950 ml 660 ml LAQUITA MAST MD Nov 14, 2017 10:35
[2017-11-14 11:00] VITALS: BP 113/65
--- NOTE | 2017-11-16 14:14 | PATHOLOGY ---
[facility] Accession Number: [id number] . 01 Material submitted: . LUMBAR DISC AND DECOMPRESSION . 01 Clinical history: . Lumbar herniated disc and radiculopathy, lower back pain . 02 Diagnosis: Segments of fibrocartilaginous, adipose, and skeletal muscle tissue and bone, lumbar disc and decompression: - Degenerative changes of fibrocartilaginous tissue. [facility]/11/16/2017 . 02 Comment: There is no evidence of an acute inflammatory process or malignancy. . (JPM:mml; 11/16/17) . 02 Electronically signed: . Willian Snadoval MD, Pathologist NPI- [id number] . 01 Gross description: . Received in formalin labeled "Elyssa Garner, lumbar disc and decompression," are several pieces of glistening, fibrous tissue measuring 4.5 x 0.2 x 0.7 cm in aggregate dimensions, containing small fragments of possible bone. The tissue submitted representatively in cassette A1, following decalcification. (TSD; 11/14/2017) TOB/TOB . 02 Pathologist provided ICD-10: M51.36 . 02 CPT . 430420, [id number] Performed at: 01 [facility] [address], [place] [id number] MD Severiano Hernadez MD Phone: [phone] Performed at: 02 [facility] [address] [place], [place] [id number] MD Willian Sandoval MD Phone: [phone]
--- NOTE | 2017-11-21 00:31 | OP ---
DATE OF SURGERY: 11/13/2017 PREOPERATIVE DIAGNOSES: Herniated lumbar disc L1-L2 with a large inferior fragment, equidistant between the L1-L2 and L2-L3 disc space compressing the left L2 nerve root. POSTOPERATIVE DIAGNOSIS: Herniated lumbar disc L1-L2 with a large inferior fragment, equidistant between the L1-L2 and L2-L3 disc space compressing the left L2 nerve root. OPERATION PERFORMED: Lumbar laminectomy, partial L1-L2, partial L3 with removal of large herniated disc, compressing the left L2 nerve root. The operation was done with EMG monitoring, fluoroscopy, microscopic dissection. SURGEON: Abdelrahman Mast M.D. ASSISTANT DISTRICT ATTORNEY: Jannie Acosta, assisted with surgery, assisted with the exposure, the microdiscectomy as well as the closure. OPERATIVE INDICATIONS: The patient is a very pleasant 57-year-old who developed severe intractable back and left leg pain. On imaging studies, she had above-mentioned findings. She failed to improve after 4 months of physical therapy. The pain was severe enough that she was also seen in the Emergency Room and recommended lumbar surgery. She understood the surgery and the risks and wished to go ahead. DESCRIPTION OF PROCEDURE: Following general endotracheal anesthesia, the patient was positioned prone on the Farrukh table. Lumbar region prepped and draped in standard fashion. ALEX hose and AV impulse boots were applied for DVT prophylaxis. The microscope was draped. Fluoroscopy was draped and brought into the field. Monitoring was established. Ancef 2 grams was given less than 1 hour prior to initiation of the surgery. An incision was made extending from L1-L2 to the L2-L3 disc space. I dissected down through skin and subcutaneous tissue. I reflected the paraspinal muscles to the left and placed a Thayer Micro disc retractor, brought in the microscope and using microscopic technique and the high speed air drill, I burred down a generous hemilaminotomy, partial L1 and then worked inferiorly of L2 gradually exposing inferiorly and decompressing the markedly lifted lateral dural sac all the way to the L2-L3 interspace. I did use the blunt hook and palpated beneath the root, which was markedly lifted and it was difficult to determine whether the disc had herniated inferiorly from L1-L2 or superiorly from L2-L3. I did expose both discs and felt it most likely had come inferiorly from L1-L2. I gently retracted the L2 root medially with a micro nerve root retractor and began to tease back and remove the multiple disc fragments, which were beneath the root lifting it and compressing it. I worked inferiorly to expose the axilla and working superiorly up into the axilla, I removed disc material from this location as well and as I worked, the dura gradually was relieved of pressure and moved back down to more normal position. When I had removed all of the subligamentous disc, I did follow the root out around the pedicle and removed the laterally placed herniated disc material as well. The disc space at L1-L2 was flat as was the disc space at L2-L3. I fully decompressed the entire region and removed a large quantity of disc material in order to decompress the L2 root. I irrigated copiously with antibiotic solution. I did use small amounts of bone wax which were necessary as well as a bipolar cautery for any epidural bleeding. I then removed the retractor, obtained hemostasis in the muscle and closed the wound in layers with absorbable suture. There was no untoward firing of the EMG monitoring throughout the case. I closed the wound in layers with absorbable suture. The skin was closed with 4-0 subcuticular stitch. The operation went very well and the patient was taken uneventfully to recovery room in excellent condition. I was quite pleased with the surgery. ABDELRAHMAN MAST MD DR: DEDRICK/sofia JOB#: [id number] / [id number] ERNST
== END 2017-11-14 12:25 | disposition home or self-care (01) ==
LOC: SURG 08:13 → 4 NORTH 17:16
PROVIDERS: ADMIT Neurological Surgery; ATTEND Neurological Surgery
DX: M51.16 Intervertebral disc disorders with radiculopathy, lumbar region (principal); M06.9 Rheumatoid arthritis, unspecified; Z87.891 Personal history of nicotine dependence; Z90.710 Acquired absence of both cervix and uterus; Z96.653 Presence of artificial knee joint, bilateral
CPT/HCPCS: 63047; 63048; 76000; 88304; 88311; 97162; 97530; G0378; G0379; G8978; G8979; G8980; J0690; J1100; J1885; J2001; J2250; J2370; J2405; J2704; J2710; J3010; J3490; J7030; J7120; A7015

== ENCOUNTER → 2018-01-12 | Outpatient (CLI) | payer OTHER ==
[~2018-01-12] MED LIST changes: -BACITRACIN 50,000 UNIT in IV NORMAL SALINE 1000ML BAG 1,000 ML IRR ONE; -BUPIVAC MPF-EPI 0.5%-1:200000 30 ML VIAL. INJ ONE; -GELATIN SPONGE SIZE 100. ONE; -IV RINGERS,LACTATED 1000ML 1,000 ML IV SCH; -KETOROLAC 60 MG/2 ML INJ FOR OR. ONE; -LIDOCAINE 1% PF 2 ML VIAL. ID PRN; -MORPHINE SULFATE 2 MG/ML VIAL. IV PRN; -ONDANSETRON PF 4 MG/2 ML VIAL. IV PRN; -PROCHLORPERAZINE 10 MG/2 ML VIAL. IV PRN; -THROMBIN TOPICAL 20,000 UNIT SPRAY.SYRN KIT TP ONE; -ceFAZolin 2GM PREMIX 2 GM/50 ML BAG IV ONE; -fentaNYL PF VIAL 100 MCG/2 ML VIAL IV PRN
--- NOTE | 2018-01-13 01:17 | PAIN ---
DATE OF SERVICE: 01/12/2018 DIAGNOSES: 1. Lumbar radiculopathy with lumbar degenerative disk disease, lumbar spinal stenosis and low back pain. 2. Myofascial pain. HISTORY OF PRESENT ILLNESS: The patient is a 57-year-old female who returns for followup, last seen on 10/23/2017. The patient underwent lumbar epidural steroid injections and eventually had surgery in November of this year with decompressive laminectomy and diskectomy. The patient reports that she has done very well with about 80% improvement in her low back pain from the surgery and about 70% improved overall with the pain in her back and hips. The patient reports since that time, she has been increasing her activity with greater ease and comfort, walking greater distances, doing household activities with greater ease and comfort, sitting for longer periods without difficulty. The patient reports she is sleeping well at night, does not awaken her from sleep at night, reports the pain is a 6 on a scale 10 at its worst, 2 on average and a 2 at its least and is a 2 on a scale of 10 today. The patient reports it is aching and tight in the low back and in the hips, but significantly improved since her surgery. The patient reports no new motor or sensory deficits. No new bowel or bladder incontinence or other complaints. PHYSICAL EXAMINATION: VITAL SIGNS: The patient's blood pressure 142/82, pulse 84, respirations 18, temperature 98.3 degrees Fahrenheit, height is 5 feet 8 inches, weighs 221 pounds. GENERAL: The patient is awake, alert, oriented, appropriate, very pleasant demeanor. HEENT: Shows normocephalic, atraumatic. Extraocular movements are intact and symmetrical. Oral cavity: Mucous membranes moist and pink. Dentition is intact. NECK: Shows anterior throat supple without palpable lymphadenopathy noted. Swallow reflex is symmetrical. CHEST: Shows normal on inspection. Breath sounds are clear to auscultation bilaterally. HEART: Shows S1, S2 clear. No murmurs auscultated. ABDOMEN: Soft, nontender, nondistended. No palpable organomegaly is noted. No rebound or guarding demonstrated. BACK: Shows spine grossly in the midline. The patient's lumbar surgical scar looks well healed with some minor flattening of lumbar lordotic curvature. Lumbar paraspinous muscle shows symmetrical on inspection. On palpation shows some mild tenderness, but only diffusely in the inferior aspect and the middle aspect of the paraspinous muscles bilaterally without radiation. The patient shows good rotational motion of lumbar spine both laterally greater than 10 degrees right and left, as well as extension greater than 10 degrees, forward flexion to 45 degrees without significant pain reported. No tenderness over the sacrum or sacroiliac regions or the spinous processes. LOWER EXTREMITIES: Show deep tendon reflexes at 2+ in the patellar, 1+ tendo calcaneus tendons. Motor exam is approximately 4 on a scale of 5, but equal and symmetrical with dorsiflexion, extension, quadriceps and hamstring flexion. Peripheral pulses are 1+. No peripheral edema is noted. Options were discussed with the patient. This patient's old chart was reviewed as is her current medication regimen updated. Current review of systems is updated today as well. The patient is still doing much better after the lumbar decompressive surgery, reports she does not feel that she needs any interventional techniques at this time. She was questioning whether she should stay on her narcotic analgesics, which she reports that she takes for arthritic pain in the bilateral hips and still has this pain. She has been taking OxyContin 10 mg daily q. 12 hours, also gabapentin and hydrocodone. We discussed that since her back is doing much better after the surgery that obviously we will need to decrease these medications and would recommend decreasing the extended release first and then the hydrocodone as tolerated, although if she may still have some significant pain from fibromyalgia pain as well as the arthritic pains, should be handled on a p.r.n. basis with the hydrocodone most likely. I also informed to her that we will not be prescribing these medications for her and this will go to her primary care physician as it has for some time. The patient understands and agrees. We will forward a note to their office and be available for any interventional techniques that she may need in the future. ABILIO SIDDIQUI MD DR: JUNE/sofia JOB#: [id number] / [id number] Dr. Jayla Ulrich
== END | disposition home or self-care (01) ==
LOC: PNCL 09:30
PROVIDERS: ATTEND Anesthesiology
DX: M51.16 Intervertebral disc disorders with radiculopathy, lumbar region (principal); M48.061 Spinal stenosis, lumbar region without neurogenic claudication; K21.9 Gastro-esophageal reflux disease without esophagitis; M19.90 Unspecified osteoarthritis, unspecified site; F32.9 Major depressive disorder, single episode, unspecified; F41.9 Anxiety disorder, unspecified; F17.210 Nicotine dependence, cigarettes, uncomplicated; Z90.710 Acquired absence of both cervix and uterus; Z96.653 Presence of artificial knee joint, bilateral; Z79.899 Other long term (current) drug therapy
CPT/HCPCS: 99212

== ENCOUNTER → 2018-04-24 | Outpatient (CLI) | payer OTHER ==
[~2018-04-24] MED LIST changes: +AMOX1TAB61 PO; -DULO60CA44 PO; +DULO60CA45 PO; -GABA800T2 PO; +GABA800T5 PO; -HYDR-2758 PO; +HYDR-2761 PO; +METR500T PO; -OXYC-323 PO; -OXYC10TA45 PO; +OXYC10TA46 PO; +OXYC1TAB15 PO
--- NOTE | 2018-04-24 16:52 | KCIC ---
EXAM: Bilateral hand and wrist DATE: 04/24/2018 12:00 AM INDICATIONS: Rheumatoid arthritis COMPARISON: No prior FINDINGS: PA, oblique and lateral views of the hand and wrist bilaterally show normal symmetric bone density. Regional joint spaces are preserved. No degenerative changes. No erosive type changes. No periarticular soft tissue calcifications or chondrocalcinosis. No focal soft tissue swelling. IMPRESSION: No radiographic findings of inflammatory or erosive arthropathy. Electronically signed by: Feliberto Lucero MD (04/24/2018 4:48 PM) [facility]-[id number]
--- NOTE | 2018-04-24 16:58 | KCIC ---
EXAM: 1. AP, oblique and lateral views of both ankles 2. AP, oblique and lateral views of both feet DATE: 04/24/2018 12:00 AM INDICATION: Rheumatoid arthritis, bilateral ankle swelling. Lateral right ankle pain. COMPARISON: No Prior FINDINGS: AP, oblique and lateral views of the ankles and feet bilaterally show normal symmetric bone density. Regional joint spaces are preserved. Small anterior right ankle joint osteophytes. Otherwise no significant degenerative change. No erosive type changes. No periarticular soft tissue calcifications or chondrocalcinosis. Small left calcaneal enthesophyte is incidentally seen. A small ossicle is seen inferior to the medial malleolus, chronic. IMPRESSION: 1. No radiographic findings for inflammatory or erosive arthropathy. 2. Small anterior right ankle joint osteophytes. 3. Mild soft tissue swelling overlying the right lateral malleolus. Electronically signed by: Feliberto Lucero MD (04/24/2018 4:54 PM) [id number]
== END | disposition home or self-care (01) ==
LOC: KCIC 10:56
PROVIDERS: ATTEND Internal Medicine Rheumatology
DX: M05.79 Rheumatoid arthritis with rheumatoid factor of multiple sites without organ or systems involvement (principal); M25.771 Osteophyte, right ankle; Z87.39 Personal history of other diseases of the musculoskeletal system and connective tissue
CPT/HCPCS: 73130; 73610; 73630

== ENCOUNTER → 2018-06-13 | Outpatient (CLI) | payer OTHER ==
[~2018-06-13] MED LIST changes: -AMOX1TAB61 PO; +DULO60CA44 PO; -DULO60CA45 PO; -METR500T PO
--- NOTE | 2018-06-13 12:36 | KCIC ---
EXAM: Right knee, 3 views. HISTORY: Pain. COMPARISON: 10/14/2015 FINDINGS: 3 views the right knee are obtained. There is a mildly displaced proximal fibular metaphyseal fracture with slight surrounding callus formation. There is a right knee arthroplasty in expected position. There is a trace right knee effusion. There is enthesopathy along the superior patella. IMPRESSION: 1. Mildly displaced proximal fibular metaphyseal fracture. This appears to be subacute. 2. Right knee arthroplasty in expected position. 2. Trace right knee effusion. Electronically signed by: Sophy Macario MD (06/13/2018 12:33 PM) [facility]
== END | disposition home or self-care (01) ==
LOC: KCIC 12:12
PROVIDERS: ATTEND Nurse Practitioner
DX: S82.491A Other fracture of shaft of right fibula, initial encounter for closed fracture (principal); M76.891 Other specified enthesopathies of right lower limb, excluding foot; Z96.651 Presence of right artificial knee joint; X58.XXXA Exposure to other specified factors, initial encounter; Y93.89 Activity, other specified; Y92.89 Other specified places as the place of occurrence of the external cause; Y99.8 Other external cause status
CPT/HCPCS: 73562

== ENCOUNTER → 2018-06-15 | Outpatient (CLI) | payer OTHER ==
--- NOTE | 2018-06-15 14:41 | KCIC ---
History: Screening. History of benign left breast biopsy in 2006. Bilateral digital CC and MLO views were obtained with mammography and tomosynthesis. Computer aided detection was utilized with iCAD Second Look 7.2-H. Previous: February 08, 2011. There are scattered fibroglandular densities (Level 2 density).There are no suspicious masses, suspicious microcalcifications or areas of architectural distortion. Bilateral benign calcifications which have increased scattered throughout both breasts. Mild nodularity of the glandular tissue as well as small upper outer intramammary lymph nodes of both breasts. Within the right inner breast 4 cm from the nipple there is a 1 cm somewhat oval lobular mass new from the prior study best demonstrated on CC tomosynthesis image 19, less well visualized on MLO tomosynthesis likely on image 56. Within the left outer breast 4 cm from the nipple is a 1 cm oval partially circumscribed mass best demonstrated on CC tomosynthesis image 29 and MLO image 27. Within the left inner breast 9 cm from the nipple on CC tomosynthesis image 44 there is a subcentimeter glandular asymmetry with no distinct mass, with no correlate on the MLO view. Small oil cyst with peripheral calcification of the left upper inner breast. IMPRESSION: Small masses of both breasts. Left inner breast glandular asymmetry only apparent on the CC view. Assessment with bilateral breast sonography is advised. The breast center will provide imaging follow up orders and will contact the patient for follow up. BI-RADS Category 0: Incomplete. Need additional imaging evaluation. "Our facility is accredited by the [employer] Mammography [employer]." If your mammogram demonstrates that you have dense breast tissue, which could hide abnormalities, and if you have other risk factors for breast cancer that have been identified, you might benefit from supplemental screening tests that may be suggested by your ordering physician. Dense breast tissue, in and of itself, is a relatively common condition. This information is not provided to cause undue concern, but rather to raise your awareness and to promote discussion with your physician regarding the presence of other risk factors, in addition to dense breast tissue. A report of your mammography results will be sent to you and your physician. You should contact your physician if you have any questions or concerns regarding this report. A mammogram does not have 100% sensitivity and therefore a negative imaging study should not delay further work up of a suspicious abnormality. Electronically signed by: Be Menjivar MD (06/15/2018 2:38 PM) [facility]
== END | disposition home or self-care (01) ==
LOC: KCIC MAMMO 09:13
PROVIDERS: ATTEND Nurse Practitioner
DX: Z12.31 Encounter for screening mammogram for malignant neoplasm of breast (principal); N63.12 Unspecified lump in the right breast, upper inner quadrant; N63.22 Unspecified lump in the left breast, upper inner quadrant
CPT/HCPCS: 77063; 77067

== ENCOUNTER → 2018-06-25 | Outpatient (CLI) | payer OTHER ==
--- NOTE | 2018-06-25 10:54 | KCIC ---
Bilateral breast ultrasound: Reason for examination: Nodular densities bilaterally on screening mammogram. Comparison is made to mammographic exam dated 06/15/2018. Ultrasound examination was performed in the areas of mammographic concern bilaterally and at the axilla. In the right breast at the 5:00 position 4 cm from the nipple, there is a 9.4 x 8.8 mm circumscribed fibrocystic type lesion. No abnormal appearing lymph nodes are seen in the right axilla. In the left breast at the 2:00 position, there is a hypoechoic circumscribed lesion measuring 8 x 7 mm in size which may represent a small fibroadenoma. In the 10:00 position 4 cm from the nipple, there is a hypoechoic circumscribed lesion measuring 6.1 x 4.2 mm in greatest dimension which has a benign fibrocystic appearance. At the 11:00 position 10 cm from the nipple, there is also a 4.8 x 2.7 mm hypoechoic fibrocystic lesion. No abnormal appearing lymph nodes are seen in the axilla. IMPRESSION: Benign hypoechoic circumscribed nodules seen bilaterally consistent with fibrocystic and fibroadenomatous type lesions. No suspicious-appearing lesions are seen. Recommend 6 month ultrasound follow-up. BI-RADS Category 3: Probably Benign. "Our facility is accredited by the [employer] Mammography Program." This patient's information has been entered into a reminder system for the patient to be notified with the results of her examination and a target date for the next mammogram. Electronically signed by: Amanda Hughes MD (06/25/2018 10:51 AM) [facility]
== END | disposition home or self-care (01) ==
LOC: KCIC US 09:55
PROVIDERS: ATTEND Nurse Practitioner
DX: N63.14 Unspecified lump in the right breast, lower inner quadrant (principal); N63.21 Unspecified lump in the left breast, upper outer quadrant
CPT/HCPCS: 76641

== ENCOUNTER → 2018-10-24 | Outpatient (CLI) | payer OTHER ==
[2018-10-10 11:00] VITALS: BP 97/49
[~2018-10-24] MED LIST changes: +AMOX1TAB61 PO; +IOHEXOL 240 MG/ML 50ML VIAL. PO ONE; +IOHEXOL 300 MG/ML 100ML VIAL. IV ONE; +METR500T PO
--- NOTE | 2018-10-24 11:12 | RAD ---
PQRS Compliance statement: One or more of the following individualized dose reduction techniques were utilized for this examination: 1. Automated exposure control. 2. Adjustment of the mA and/or kV according to patient size. 3. Use of iterative reconstruction technique. Indication:Postop complication sequela. TECHNIQUE: CT abdomen with IV contrast with multiplanar reformats. COMPARISON: 10/09/2018. FINDINGS: Heart is normal in size. No pericardial or pleural effusion. Nodular opacities seen in the medial aspect of the right lower lobe measuring 8 and 9 mm. Liver, spleen, pancreas, adrenals and left kidney within normal limits. Couple of punctate nonobstructing right renal stones. Status post cholecystectomy. Trace amount of fluid is seen in the gallbladder fossa. Interval resolution of previously seen gallbladder fossae emphysema. Visualized bowel is within normal limits. No suspicious bony lesion. Advanced degenerative disc disease in the upper lumbar spine. IMPRESSION: Trace amount of fluid in the gallbladder fossa likely postsurgical seroma. Findings improved compared to previous exam. Electronically signed by: Magdaleno Zamora DO (10/24/2018 11:09 AM) [facility]
== END | disposition home or self-care (01) ==
LOC: CT 09:50
PROVIDERS: ATTEND Nurse Practitioner
DX: N20.0 Calculus of kidney (principal); T81.9XXS Unspecified complication of procedure, sequela; M51.36 Other intervertebral disc degeneration, lumbar region; R91.8 Other nonspecific abnormal finding of lung field; Z90.49 Acquired absence of other specified parts of digestive tract; Y83.9 Surgical procedure, unspecified as the cause of abnormal reaction of the patient, or of later complication, without mention of misadventure at the time of the procedure
CPT/HCPCS: 74160; Q9966; Q9967

== ENCOUNTER → 2018-12-07 | Day surgery (SDC) | payer OTHER ==
[~2018-12-07] MED LIST changes: -DULO60CA44 PO; +DULO60CA45 PO; +GABA600T7 PO; -IOHEXOL 240 MG/ML 50ML VIAL. PO ONE; -IOHEXOL 300 MG/ML 100ML VIAL. IV ONE; +IV RINGERS,LACTATED 1000ML 1,000 ML IV SCH; +PROPOFOL 40 ML IV ONE
[2018-12-07 13:01] VITALS: BP 142/81
--- NOTE | 2018-12-11 18:06 | PATHOLOGY ---
[facility] Accession Number: [id number] . 01 Material submitted: . stomach - ANTRUM BX . 01 Clinical history: . Dysphagia, CRC screen . 02 Diagnosis: Gastric biopsy, antrum: - Chronic gastritis, mild. (JPM:fede; 12/11/2018) QMS/12/11/2018 . 02 Comment: Sections of the gastric antral biopsy show congestion and mild chronic inflammation. A properly controlled immunoperoxidase stain for Helicobacter is negative for Helicobacter organisms. There is no evidence of malignancy. (JPM:fede; 12/11/2018) . Special stain performed: Immunoperoxidase stain for Helicobacter . 02 Electronically signed: . Willian Sandoval MD, Pathologist NPI- [id number] . 01 Gross description: . Received in formalin labeled "[place], [place], antral BX, rule out H. pylori," is a single segment of fernandez soft tissue measuring 0.6 cm in maximum dimension. The specimen is entirely submitted in cassette A1. (TSD; 12/07/2018) TOB/TOB . 02 Pathologist provided ICD-10: K29.50 . 02 CPT . 243342, N98201 Specimen Comment: A courtesy copy of this report has been sent to Specimen Comment: [phone], . Specimen Comment: Report sent to / DR ROMEO Performed at: 01 [facility] [address], [place] [id number] MD Severiano Hernadez MD Phone: [phone] Performed at: 02 [facility] [address] [place], [place] [id number] MD Willian Sandoval MD Phone: [phone]
== END ==
LOC: ENDOS 11:28
PROVIDERS: ATTEND Surgery
DX: K29.50 Unspecified chronic gastritis without bleeding (principal); K63.89 Other specified diseases of intestine; K21.9 Gastro-esophageal reflux disease without esophagitis; Z90.49 Acquired absence of other specified parts of digestive tract; Z87.39 Personal history of other diseases of the musculoskeletal system and connective tissue; Z90.710 Acquired absence of both cervix and uterus; Z96.653 Presence of artificial knee joint, bilateral; Z98.890 Other specified postprocedural states; Z87.891 Personal history of nicotine dependence; Z72.89 Other problems related to lifestyle
CPT/HCPCS: 43239; 45378; 88305; 88342; J2704

== ENCOUNTER → 2018-12-31 | Outpatient (CLI) | payer OTHER ==
[2018-12-07 13:01] VITALS: BP 142/81
[~2018-12-31] MED LIST changes: -IV RINGERS,LACTATED 1000ML 1,000 ML IV SCH; +LORA2TAB PO; -PROPOFOL 40 ML IV ONE; +TIZA4TAB2 PO
--- NOTE | 2018-12-31 21:49 | PAIN ---
DATE OF SERVICE: 12/31/2018 PROGRESS NOTE FOR PAIN CLINIC DIAGNOSES: Lumbar radiculopathy with lumbar degenerative disk disease, lumbar spinal stenosis, and post-laminectomy syndrome. HISTORY OF PRESENT ILLNESS: The patient is a 58-year-old female who returns for followup status post lumbar epidural steroid injections, last seen in 01/2018. The patient did very well with these and ended up having surgery in 2018 for lumbar pain with very good results initially, but the pain is returning now for about the past 3 months in the low back and in the left posterior gluteus and posterior thigh with walking, standing, and change in positions, worse with weightbearing and better with sitting or lying down. It does not generally awaken her from sleep at night. The patient reports the pain is there with walking, standing, and change in positions. She has recently seen her neurosurgeon who is recommending no further surgery at this time and recommends more conservative measures. The patient reports that the pain is burning, cramping, aching, radiating, and becoming more constant in the low back and left leg without any specific injury or accident. The patient rates her pain as 8 on a scale of 10 at its worst, 6 on average, 4 at its least and is a 6 today. The patient reports no new changes and no bowel or bladder incontinence or other complaints. PHYSICAL EXAMINATION: VITAL SIGNS: The patient's blood pressure 118/81, pulse 78, respirations are 16, temperature 98.2 degrees Fahrenheit, height is 5 feet 8 inches, and weight is 190 pounds. GENERAL: The patient is awake, alert, oriented, and appropriate with very pleasant demeanor. HEENT: Head is normocephalic and atraumatic. Extraocular movements are intact and symmetrical. Oral cavity: Mucous membranes are moist and pink. Dentition is intact. NECK: Anterior throat supple without palpable lymphadenopathy noted. Swallow reflex is symmetrical. CHEST: Normal on inspection. Breath sounds clear to auscultation bilaterally. HEART: S1, S2 clear. No murmurs auscultated. ABDOMEN: Soft, nontender, and nondistended. No palpable organomegaly is noted. No rebound or guarding demonstrated. BACK: Spine grossly in the midline. Normal appearing thoracic kyphosis. Some minor flattening of lumbar lordotic curvature with well-healed surgical scar noted. Lumbar paraspinous muscle shows symmetrical on inspection and palpation shows some moderate tenderness throughout the upper, middle, and lower distribution of paraspinous muscles but only diffusely with some mild tenderness in the left mid thoracic distribution as well but without radiation. EXTREMITIES: Lower extremities show deep tendon reflexes at 2+ in the patellar and 1+ tendo calcaneus tendons. Motor exam is approximately 4 on a scale of 5, but symmetrical and equal with dorsiflexion, extension, quadriceps and hamstring flexion. Peripheral pulses are 1+ in posterior tibia. No peripheral edema is noted bilaterally. Options were discussed with the patient. The patient's old chart was reviewed, as her current medication regimen updated. Current review of systems updated today as well, and we will proceed with a preauthorization for lumbar epidural steroid injections. The patient still has significant clinical radiculopathy in the left lower extremity and low back in L5-S1 dermatomal distribution, status post lumbar surgery, but with returning radicular pain on the left side. The patient will continue with stretching and strengthening exercises, and she has been doing these on her own as well. We encouraged her to maintain this. Also, we will try Medrol Dosepak in the meantime. The patient was given instruction as well as side effects to be aware of with the medication. The patient will follow up in approximately 1 week. We will plan on lumbar epidural steroid injection on her return. ABILIO SIDDIQUI MD DR: JUNE/sofia JOB#: [id number] / [id number]
== END | disposition home or self-care (01) ==
LOC: PNCL 13:46
PROVIDERS: ATTEND Anesthesiology
DX: M51.16 Intervertebral disc disorders with radiculopathy, lumbar region (principal); M48.061 Spinal stenosis, lumbar region without neurogenic claudication; M96.1 Postlaminectomy syndrome, not elsewhere classified
CPT/HCPCS: G0463

== ENCOUNTER → 2019-01-17 | Outpatient (CLI) | payer OTHER ==
[2018-12-07 13:01] VITALS: BP 142/81
[~2019-01-17] MED LIST changes: +IOHEXOL 180 MG/ML 10 ML VIAL. ONE; +methylPREDNISolone ACETATE 40 MG/ML VIAL. ONE; +methylPREDNISolone ACETATE 80 MG/ML VIAL. ONE
--- NOTE | 2019-01-17 15:20 | PAIN ---
DATE OF SERVICE: 01/17/2019 PROGRESS NOTE FOR PAIN CLINIC DIAGNOSES: Lumbar radiculopathy with lumbar degenerative disk disease, lumbar spinal stenosis, and post-lumbar laminectomy syndrome. HISTORY OF PRESENT ILLNESS: This is a 58-year-old female who returns for followup status post previous evaluation and preauthorization for lumbar epidural steroid injection. The patient has obtained this now and would like to proceed. The patient reports still significant pain in the low back and into the left lower extremity as it was previously, posterior gluteus and posterior thigh. The patient reports it is an 8 on a scale of 10 at its worst over the past week, 6 on average, 3 at its least, and is 6 today. The patient reports it is burning, cramping, stabbing, on and off in intensity; worse with walking, standing, and changing positions; better with sitting or lying down but has awakened her from sleep about every 6 hours. The patient reports no new motor or sensory deficits. No new bowel or bladder incontinence or other complaints. PHYSICAL EXAMINATION: VITAL SIGNS: Today, the patient's blood pressure is 140/91, pulse 77, respirations 16, temperature 98.0 degrees Fahrenheit, and weight is 188 pounds. GENERAL: The patient is awake, alert, oriented, and appropriate. Very pleasant demeanor. HEENT: Normocephalic and atraumatic. Extraocular movements are intact and symmetrical. Oral cavity: Mucous membranes moist and pink. Dentition is intact. NECK: Anterior throat supple without palpable lymphadenopathy noted. Swallow reflex symmetrical. CHEST: Normal on inspection. Breath sounds clear to auscultation bilaterally. HEART: S1, S2 clear. No murmurs auscultated. ABDOMEN: Soft, nontender, and nondistended. No palpable organomegaly is noted. No rebound or guarding demonstrated. BACK: Spine grossly in the midline. Normal appearing thoracic kyphosis and lumbar lordotic curvature. Lumbar paraspinous muscle shows symmetrical on inspection. A well-healed surgical scar is again noted. With palpation, she has some moderate tenderness bilaterally in the lower lumbar distribution, slightly more on the left than the right, but only very moderately. The patient shows no asymmetry and no atrophy or hypertrophy. EXTREMITIES: The patient's lower extremities show deep tendon reflexes 2+ in the patellar and 1+ tendo-calcaneus tendons. Motor exam is approximately 4 on a scale of 5 and equal with dorsiflexion, extension, quadriceps, and hamstring flexion and are symmetrical. Peripheral pulses are 1+ in posterior tibia. No peripheral edema is noted bilaterally. Options were discussed with the patient. The patient's old chart was reviewed and her current medication regimen updated. Current review of systems updated today as well. We will proceed with a lumbar epidural steroid injection today, the first in this series. Risks were again discussed including but not limited to bleeding, infection, possibility of epidural hematoma, subsequent neurological compromise, dural puncture, headaches, spinal cord and/or nerve damage, side effects of steroid medication, and poor results regarding pain control. The patient understands and wished to proceed. The patient will return to clinic in approximately 2 weeks for followup. She was counseled on return appointment, activity level, and side effects to be aware of. DIAGNOSES: Lumbar radiculopathy with lumbar degenerative disk disease, lumbar spinal stenosis, and post-lumbar laminectomy syndrome. PROCEDURE: Lumbar epidural steroid injection, translaminar approach at L5-S1 level using C-arm fluoroscopic guidance under sterile prep and drape using local anesthetic. MEDICATION INJECTED: The patient received a total of 120 mg of Depo-Medrol plus 10 mL of preservative-free normal saline and 2 mL of contrast. CONDITION AT DISCHARGE: Stable. The patient tolerated the procedure well and had no complications. ABILIO SIDDIQUI MD DR: JUNE/sofia JOB#: [id number] / [id number]
== END ==
LOC: PNCL 14:25
PROVIDERS: ATTEND Anesthesiology
DX: M51.16 Intervertebral disc disorders with radiculopathy, lumbar region (principal); M96.1 Postlaminectomy syndrome, not elsewhere classified; M48.061 Spinal stenosis, lumbar region without neurogenic claudication
CPT/HCPCS: 62323; J1030; J1040; Q9965

== ENCOUNTER 2019-04-06 08:39 | Emergency (ER) | payer OTHER ==
[~2019-04-06] VITALS: Ht 167.6 cm; Wt 84.4 kg
[~2019-04-06 08:39] MED LIST changes: -IOHEXOL 180 MG/ML 10 ML VIAL. ONE; -methylPREDNISolone ACETATE 40 MG/ML VIAL. ONE; -methylPREDNISolone ACETATE 80 MG/ML VIAL. ONE
[2019-04-06 08:47] VITALS: BP 147/76
[2019-04-06 09:08] LABS: BILIRUBIN,URINE NEGATIVE (NEG); CLARITY,URINE TURBID; COLOR,URINE YELLOW; NITRITE,URINE NEGATIVE (NEG); PH,URINE 5.5; PROTEIN,URINE 100 mg/dL (NEG-TRACE); UROBILINOGEN,URINE 0.2 mg/dL (0.2 mg/dL)
[2019-04-06] MEDS ORDERED: METOCLOPRAMIDE HCL 10 MG/2 ML VIAL. IVP ONE (09:15)
[2019-04-06] MEDS ORDERED: KETOROLAC 15 MG/ML VIAL. IVP ONE (09:15)
[2019-04-06] MEDS ORDERED: IV NORMAL SALINE 1000ML BAG 1,000 ML IV ONE (09:15)
[2019-04-06 09:17] LABS: BASO # 0.1 x10^3/uL (0.0-0.2); BASO % 1 % (0-3); EOS # 0.1 x10^3/uL (0.0-0.7); EOS % 1 % (0-3); HEMATOCRIT 37.9 % (36.0-47.0); HEMOGLOBIN 12.4 g/dL (12.0-15.5); LYMPH # 1.3 x10^3/uL (1.0-4.8); LYMPH % 11 % (24-48); MEAN CORPUSCULAR HEMOGLOBIN 28 pg (25-35); MEAN CORPUSCULAR HGB CONC 33 g/dL (31-37); MEAN CORPUSCULAR VOLUME 85 fL (79-100); MONO # 0.5 x10^3/uL (0.0-1.1); MONO % 4 % (0-9); NEUT # 9.6 x10^3/uL (1.8-7.7); NEUT % 83 % (31-73); PLATELET COUNT 282 x10^3/uL (140-400); RED BLOOD COUNT 4.48 x10^6/uL (3.50-5.40); RED CELL DISTRIBUTION WIDTH 15.2 % (11.5-14.5); WHITE BLOOD COUNT 11.5 x10^3/uL (4.0-11.0)
[2019-04-06 09:26] LABS: CREATININE 0.7 mg/dL (0.6-1.0); GFR 86.6
[2019-04-06 09:27] LABS: BACTERIA,URINE FEW /HPF (0-FEW); SQUAMOUS EPITHELIAL CELL,UR FEW /LPF; WBC,URINE TNTC /HPF (0-4)
[2019-04-06 09:32] LABS: ALBUMIN 3.7 g/dL (3.4-5.0); ALBUMIN/GLOBULIN RATIO 0.9 (1.0-1.7); MAGNESIUM 1.8 mg/dL (1.8-2.4); TOTAL BILIRUBIN 0.9 mg/dL (0.2-1.0); TOTAL PROTEIN 7.6 g/dL (6.4-8.2)
--- NOTE | 2019-04-06 09:36 | PHYS DOC ---
Past Medical History Past Medical History: Arthritis, Fibromyalgia, GERD, Other Additional Past Medical Histor: rheumatoid and osteoarthritis, tmj Past Surgical History: Cholecystectomy, Hysterectomy, Knee Replacement, Other Additional Past Surgical Histo: bilat knees, rt wrist cyst, lt. lumpectomy, bladder sling, 2HERNIATED DISC Smoking: Quit Greater Than 1 Year Alcohol Use: Occasionally Drug Use: None Adult General Chief Complaint Chief Complaint: FLANK PAIN HPI HPI Patient is a 58 year old female with PMH of recurrent UTI who presents with right flank pain and nausea. Her flank pain is dull, constant with episodes of spasm that started 4 days ago. Prior to her onset, pt recently finished 7 days of Bactrim for her UTI after failing with Macrobid. However, this is the first time she ever experiences some midback and flank pain. Pt denies dysuria but still have increased frequency and urgency of urination. Denies any fever, chill, chest pain, or SOB. Review of Systems Review of Systems Constitutional: Denies fever or chills Eyes: Denies redness or eye pain HENT: Denies nasal congestion or sore throat Respiratory: Denies cough or shortness of breath Cardiovascular: Denies chest pain or palpitations GI: Denies abdominal pain, nausea, or vomiting : Denies dysuria or hematuria Musculoskeletal: Positive for mid back pain, flank pain. Denies joint pain Integument: Denies rash or skin lesions Neurologic: Denies headache, focal weakness or sensory changes Complete systems were reviewed and found to be within normal limits, except as documented in this note. Current Medications Current Medications Current Medications Medications (Trade) Dose Ordered Sig/Roberto Carlos Start Time Stop Time Status Last Admin Dose Admin Acetaminophen/ Hydrocodone Bitart (Lortab 5/325) 1 tab 1X ONCE 04/06/19 10:30 04/06/19 10:31 DC 04/06/19 10:34 1 TAB Ketorolac Tromethamine (Toradol 15mg Vial) 15 mg 1X ONCE 04/06/19 09:15 04/06/19 09:16 DC 04/06/19 09:25 15 MG Metoclopramide HCl (Reglan Vial) 10 mg 1X ONCE 04/06/19 09:15 04/06/19 09:16 DC 04/06/19 09:25 10 MG Sodium Chloride 1,000 ml @ 1,000 mls/hr 1X ONCE 04/06/19 09:15 04/06/19 10:14 DC 04/06/19 09:25 1,000 MLS/HR Tamsulosin HCl (Flomax) 0.4 mg 1X ONCE 04/06/19 10:30 04/06/19 10:31 DC 04/06/19 10:34 0.4 MG Allergies Allergies Allergies Coded Allergies Type Severity Reaction Last Updated Verified No Known Drug Allergies 12/07/18 No Physical Exam Physical Exam Constitutional: Well developed, well nourished, no acute distress, non-toxic appearance HENT: Normocephalic, atraumatic, oropharynx moist Eyes: Conjunctiva normal, no discharge Neck: Normal range of motion, no tenderness, supple Cardiovascular: Heart rate normal, regular rhythm Lungs & Thorax: Bilateral breath sounds clear to auscultation, no wheezing Abdomen: Soft, hypogastric tenderness Skin: Warm, dry, no erythema, no rash Back: No tenderness, positive bilateral CVA tenderness Extremities: No tenderness, ROM intact, no edema Neurologic: Alert and oriented X 3, normal motor function, normal sensory function, no focal deficits noted Psychologic: Affect normal, judgement normal, mood normal Current Patient Data Vital Signs Vital Signs Date Time Temp Pulse Resp B/P (MAP) Pulse Ox O2 Delivery O2 Flow Rate FiO2 04/06/19 10:34 16 96 Room Air 04/06/19 08:47 97.7 76 147/76 (99) 97.7 Lab Values Laboratory Tests Test 04/06/19 08:55 04/06/19 09:05 04/06/19 09:15 Urine Collection Type Unknown Urine Color Yellow Urine Clarity Turbid Urine pH 5.5 Urine Specific [place] 1.015 Urine Protein 100 mg/dL (NEG-TRACE) Urine Glucose (UA) Negative mg/dL (NEG) Urine Ketones (Stick) Negative mg/dL (NEG) Urine Blood Moderate (NEG) Urine Nitrite Negative (NEG) Urine Bilirubin Negative (NEG) Urine Urobilinogen Dipstick 0.2 mg/dL (0.2 mg/dL) Urine Leukocyte Esterase Large (NEG) Urine RBC 3-5 /HPF (0-2) Urine WBC Tntc /HPF (0-4) Urine Squamous Epithelial Cells Few /LPF Urine Bacteria Few /HPF (0-FEW) White Blood Count 11.5 x10^3/uL (4.0-11.0) H Red Blood Count 4.48 x10^6/uL (3.50-5.40) Hemoglobin 12.4 g/dL (12.0-15.5) Hematocrit 37.9 % (36.0-47.0) Mean Corpuscular Volume 85 fL (79-100) Mean Corpuscular Hemoglobin 28 pg (25-35) Mean Corpuscular Hemoglobin Concent 33 g/dL (31-37) Red Cell Distribution Width 15.2 % (11.5-14.5) H Platelet Count 282 x10^3/uL (140-400) Neutrophils (%) (Auto) 83 % (31-73) H Lymphocytes (%) (Auto) 11 % (24-48) L Monocytes (%) (Auto) 4 % (0-9) Eosinophils (%) (Auto) 1 % (0-3) Basophils (%) (Auto) 1 % (0-3) Neutrophils # (Auto) 9.6 x10^3/uL (1.8-7.7) H Lymphocytes # (Auto) 1.3 x10^3/uL (1.0-4.8) Monocytes # (Auto) 0.5 x10^3/uL (0.0-1.1) Eosinophils # (Auto) 0.1 x10^3/uL (0.0-0.7) Basophils # (Auto) 0.1 x10^3/uL (0.0-0.2) Sodium Level 140 mmol/L (136-145) Potassium Level 4.0 mmol/L (3.5-5.1) Chloride Level 102 mmol/L (98-107) Carbon Dioxide Level 26 mmol/L (21-32) Anion Gap 12 (6-14) Blood Urea Nitrogen 23 mg/dL (7-20) H Creatinine 0.7 mg/dL (0.6-1.0) Estimated GFR (Cockcroft-Gault) 86.6 BUN/Creatinine Ratio 33 (6-20) H Glucose Level 94 mg/dL (70-99) Calcium Level 9.0 mg/dL (8.5-10.1) Magnesium Level 1.8 mg/dL (1.8-2.4) Total Bilirubin 0.9 mg/dL (0.2-1.0) Aspartate Amino Transferase (AST) 10 U/L (15-37) L Alanine Aminotransferase (ALT) 16 U/L (14-59) Alkaline Phosphatase 90 U/L (46-116) Total Protein 7.6 g/dL (6.4-8.2) Albumin 3.7 g/dL (3.4-5.0) Albumin/Globulin Ratio 0.9 (1.0-1.7) L Lipase 122 U/L (73-393) Lactic Acid Level 1.0 mmol/L (0.4-2.0) Laboratory Tests 04/06/19 09:05 Laboratory Tests 04/06/19 09:05 EKG EKG [] Radiology/Procedures Radiology/Procedures PROCEDURE: CT ABDOMEN PELVIS WO CONTRAST Examination: CT of the abdomen pelvis without contrast HISTORY: Right flank pain COMPARISON: None available TECHNIQUE: Axial CT images of the abdomen pelvis were performed without contrast. Coronal and sagittal reformats are performed Exposure: One or more of the following individualized dose reduction techniques were utilized for this examination: 1. Automated exposure control 2. Adjustment of the mA and/or kV according to patient size 3. Use of iterative reconstruction technique FINDINGS: Minimal bibasilar lung atelectasis. No evidence of free air identified in the abdomen. The evaluation of the solid organs is limited due to lack of IV contrast. The evaluation of bowel is limited due to lack of oral contrast. The visualized noncontrasted liver, spleen, adrenals grossly appears unremarkable. Cholecystectomy clips are identified. The stomach is mildly distended. The visualized pancreas grossly appears unremarkable small bowel is nondilated. The appendix is normal. Feces and gas noted in the colon. Punctate 3 mm calculus right kidney. Mild left-sided hydronephrosis and proximal mild left hydroureter identified. There is a 4 mm calculus identified in the proximal left ureter. Urinary bladder is mildly distended. Mild thickened appearance of the urinary bladder wall. Minimal fat stranding identified about the urinary bladder. The caliber of the aorta grossly appears unremarkable. Moderate degenerative changes lumbar spine. IMPRESSION: 1. A 4 mm calculus in the proximal left ureter causing mild left-sided hydronephrosis and hydroureter. 2. Mild thickened appearance of the wall of the urinary bladder with minimal surrounding fat stranding. Correlate for cystitis. 3. Punctate calculus right kidney. Electronically signed by: Jean Eckert MD (04/06/2019 9:56 AM) [facility] Course & Med Decision Making Course & Med Decision Making Pertinent Labs and Imaging studies reviewed. (See chart for details) Patient is a 58 year old female with PMH of recurrent UTI who presents with right flank pain and nausea. DDx consider: recurrent UTI, pyelonephritis, nephrolithiasis. Will order labs, CT abdomen pelvis. Will provide reglan and toradol. Pt is stable. Will reassess. Labs obtained and posted to chart. BUN/Creat stable. CT abd/pelvis with obstructing 4mm left ureteral calculi. Flomax given. Patient stable for discharge with outpatient follow-up with PCP/urology. Discussed findings and plan with patient and family, who acknowledge understanding and agreement. 04/08/19: 0828: reviewed chart and noted UA with microscopic examination noting WBC TNTC. Concern for infection. UCX pending. Keflex 500mg TID x 7 days prescribed and transmitted to pharmacy of record. Will notify patient of need to burr picker new prescription. [phone]- Discussed with patient at number . Patient reports still some discomfort. Requesting to call antibiotic into [facility] at for Keflex 500mg TID x 7 days. Patient to burr picker this AM and will start. Patient to follow up with her PCP. Emmy Disclaimer Emmy Disclaimer This electronic medical record was generated, in whole or in part, using a voice recognition dictation system. Departure Departure Impression: Primary Impression: Kidney stone Additional Impression: UTI (urinary tract infection) Disposition: 01 HOME, SELF-CARE Condition: STABLE Referrals: NELL ROMEO (PCP) Patient Instructions: Diet for Kidney Stones, Kidney Stones, [id number] Scripts Cephalexin (KEFLEX) 500 Mg Capsule 500 MG PO TID for 7 Days, #21 CAP Prov: MAYE RETANA DO 04/08/19 Ondansetron (ONDANSETRON ODT) 4 Mg Tab.rapdis 1 TAB PO PRN Q6-8HRS PRN for NAUSEA, #16 TAB Prov: MAYE RETANA DO 04/06/19 Hydrocodone Bit/Acetaminophen (HYDROCODONE-APAP 5-325 ) 1 Tab Tablet 0.5-1 TAB PO PRN Q6HRS PRN for PAIN, #14 TAB 0 Refills Prov: MAYE RETANA DO 04/06/19 Tamsulosin Hcl (FLOMAX) 0.4 Mg Cap.er.24h 1 CAP PO DAILY for Nephrolithiasis, #15 CAP 11 Refills Prov: MAYE RETANA DO 04/06/19 Problem Qualifiers Additional Impression: UTI (urinary tract infection) Urinary tract infection type: site unspecified Hematuria presence: with hematuria Qualified Codes: N39.0 - Urinary tract infection, site not specified; R31.9 - Hematuria, unspecified MAYE RETANA DO Apr 06, 2019 09:36
--- NOTE | 2019-04-06 09:59 | RAD ---
Examination: CT of the abdomen pelvis without contrast HISTORY: Right flank pain COMPARISON: None available TECHNIQUE: Axial CT images of the abdomen pelvis were performed without contrast. Coronal and sagittal reformats are performed Exposure: One or more of the following individualized dose reduction techniques were utilized for this examination: 1. Automated exposure control 2. Adjustment of the mA and/or kV according to patient size 3. Use of iterative reconstruction technique FINDINGS: Minimal bibasilar lung atelectasis. No evidence of free air identified in the abdomen. The evaluation of the solid organs is limited due to lack of IV contrast. The evaluation of bowel is limited due to lack of oral contrast. The visualized noncontrasted liver, spleen, adrenals grossly appears unremarkable. Cholecystectomy clips are identified. The stomach is mildly distended. The visualized pancreas grossly appears unremarkable small bowel is nondilated. The appendix is normal. Feces and gas noted in the colon. Punctate 3 mm calculus right kidney. Mild left-sided hydronephrosis and proximal mild left hydroureter identified. There is a 4 mm calculus identified in the proximal left ureter. Urinary bladder is mildly distended. Mild thickened appearance of the urinary bladder wall. Minimal fat stranding identified about the urinary bladder. The caliber of the aorta grossly appears unremarkable. Moderate degenerative changes lumbar spine. IMPRESSION: 1. A 4 mm calculus in the proximal left ureter causing mild left-sided hydronephrosis and hydroureter. 2. Mild thickened appearance of the wall of the urinary bladder with minimal surrounding fat stranding. Correlate for cystitis. 3. Punctate calculus right kidney. Electronically signed by: Jean Eckert MD (04/06/2019 9:56 AM) [facility]
[2019-04-06] MEDS ORDERED: TAMS0.4C97 PO (10:19)
[2019-04-06] MEDS ORDERED: HYDR-2761 PO ×2 (10:19→10:27)
[2019-04-06] MEDS ORDERED: ONDA4TAB7 PO (10:19)
[2019-04-06] MEDS ORDERED: ONDA4TAB12 PO (10:27)
[2019-04-06] MEDS ORDERED: HYDROcodone/APAP 5/325MG 1 TAB TABLET PO ONE (10:30)
[2019-04-06] MEDS ORDERED: TAMSULOSIN 0.4 MG CAP.ER.24H. PO ONE (10:30)
[2019-04-08] MEDS ORDERED: CEPH-264 PO (08:28)
== END 2019-04-06 10:40 | disposition home or self-care (01) ==
LOC: ER 08:39
DX: N13.2 Hydronephrosis with renal and ureteral calculous obstruction (principal); N39.0 Urinary tract infection, site not specified; K21.9 Gastro-esophageal reflux disease without esophagitis; Z90.49 Acquired absence of other specified parts of digestive tract; Z90.710 Acquired absence of both cervix and uterus; Z87.891 Personal history of nicotine dependence
CPT/HCPCS: 36415; 74176; 80053; 81001; 83605; 83690; 83735; 85025; 87086; 96374; 96375; 99285; J1885; J2765; J7030

== ENCOUNTER → 2019-05-09 | Outpatient (CLI) | payer MEDICARE ==
[~2019-05-09] MED LIST changes: +CEPH-264 PO; +ONDA4TAB12 PO; +ONDA4TAB7 PO; +TAMS0.4C97 PO
--- NOTE | 2019-05-09 15:01 | RAD ---
KUB without comparison for kidney stone. FINDINGS: No radiographically discernible kidney stones are identified. There is severe degenerative change throughout the lumbar spine. There is a moderate amount of stool distributed throughout the colon. IMPRESSION: 1. Nonobstructive nonspecific bowel gas pattern with a moderate amount of stool. 2. No radiopaque renal calculi. Electronically signed by: Mickey Gramajo MD (05/09/2019 2:58 PM) [id number]
== END | disposition home or self-care (01) ==
LOC: RAD 10:53
PROVIDERS: ATTEND Urology
DX: M47.816 Spondylosis without myelopathy or radiculopathy, lumbar region (principal)
CPT/HCPCS: 74018

== ENCOUNTER → 2019-05-09 | Outpatient (CLI) | payer MEDICARE ==
--- NOTE | 2019-05-09 15:04 | RAD ---
EXAM: 1. HAND BILAT 2V, 2. WRIST BILAT 2V. HISTORY: Rheumatoid arthritis. COMPARISON: None. FINDINGS: There is mild osteoarthritis at the right first metacarpophalangeal and carpometacarpal joints. No joint space narrowing or erosions are seen elsewhere. Alignment is maintained. On the left, there are tiny osteophytes along the first metacarpophalangeal and carpometacarpal joints. No joint space narrowing or erosions are seen elsewhere. Alignment is maintained. IMPRESSION: 1. Mild bilateral first carpometacarpal and metacarpophalangeal osteoarthritis. No erosions are identified. Electronically signed by: Osman Haddad MD (05/09/2019 3:01 PM) [facility]
--- NOTE | 2019-05-09 15:08 | RAD ---
EXAM: 1. ANKLE BILAT 2V, 2. FOOT BILAT 2V. HISTORY: Rheumatoid arthritis. COMPARISON: None. FINDINGS: On the left, the joint spaces and alignment of the foot and ankle are maintained. No erosions are seen. There is a moderate plantar calcaneal spur. No fractures are identified. On the right, an ossicle at the tip of the medial malleolus is consistent with a chronic ligamentous injury. Joint spaces and alignment are maintained throughout the foot and ankle. No erosions are identified. There is a tiny plantar calcaneal spur. IMPRESSION: 1. No erosions or joint space narrowing. Electronically signed by: Osman Haddad MD (05/09/2019 3:05 PM) [facility]
== END | disposition home or self-care (01) ==
LOC: RAD 11:07
PROVIDERS: ATTEND Physician Assistant Medical
DX: M18.0 Bilateral primary osteoarthritis of first carpometacarpal joints (principal); M25.742 Osteophyte, left hand; M25.741 Osteophyte, right hand; M77.32 Calcaneal spur, left foot; M77.31 Calcaneal spur, right foot; M06.89 Other specified rheumatoid arthritis, multiple sites
CPT/HCPCS: 73100; 73120; 73600; 73620

== ENCOUNTER → 2019-05-14 | Outpatient (CLI) | payer MEDICARE ==
--- NOTE | 2019-05-14 13:15 | KCIC ---
EXAM: Retroperitoneal Ultrasound Complete ? INDICATION:?Follow-up kidney stone. ? TECHNIQUE:? Real-time ultrasound of the retroperitoneal structures was performed with permanent freeze-frame documentation. ? COMPARISON:?Abdomen and pelvis CT without IV contrast April 06, 2019 ? FINDINGS: ? RIGHT KIDNEY: 10.8 x 5.0 x 4.7 cm. 3.5 mm mid to lower pole calcification. ? LEFT KIDNEY: 10.2 x 4.2 x 4.6 cm. Minimal left pelviectasis. ? URINARY BLADDER:?Anterior thickening of the urinary bladder wall with no filling defects or masses identified. Bilateral ureteral jets are seen. Patient requires self-catheterization for bladder emptying. Postvoid residuals were not acquired. ? VASCULAR:?Visualized aorta, common iliac artery origins, and IVC are unremarkable. The distal aorta and mid to distal IVC were obscured by bowel gas. OTHER: No evidence of retroperitoneal adenopathy. ? IMPRESSION: ? Right nephrolithiasis, minimal residual left pelviectasis, and mild anterior urinary bladder wall thickening. Electronically signed by: Danie Hill MD (05/14/2019 1:12 PM) [facility]
== END | disposition home or self-care (01) ==
LOC: KCIC US 09:00
PROVIDERS: ATTEND Urology
DX: N30.20 Other chronic cystitis without hematuria (principal); R93.41 Abnormal radiologic findings on diagnostic imaging of renal pelvis, ureter, or bladder
CPT/HCPCS: 76770

== ENCOUNTER → 2019-05-16 | Outpatient (CLI) | payer MEDICARE ==
--- NOTE | 2019-05-16 15:07 | RAD ---
CT ABDOMEN PELVIS WO CONTRAST Indication: Ureteric calculus. Kidney stones. Right and left-sided pain. Exposure: One or more of the following individualized dose reduction techniques were utilized for this examination: 1. Automated exposure control 2. Adjustment of the mA and/or kV according to patient size 3. Use of iterative reconstruction technique. Comparison: 04/06/2019. Technique: No intravenous contrast given. No oral contrast per request. Findings: Evaluation of solid viscera, bowel and vasculature is compromised by the noncontrast technique. Lung bases are clear. Liver and spleen appear unremarkable. The pancreatic head is difficult to separate from adjacent bowel 3 no definite pancreatic attenuation abnormality is seen. No peripancreatic inflammatory type changes or fluid. No evidence of adrenal mass. Mild left hydronephrosis to the proximal left ureter where there is a 4 mm calculus. This is slightly more proximal to the previously seen calculus and could be due to some proximal migration or possibly a different calculus at the previous calculus passed. The ureter distal to this is is not dilated and no additional ureteric calculus is seen. The mild hydronephrosis is slightly improved from the prior study. Several tiny right renal calculi are unchanged since prior exam. No evidence of right hydronephrosis or right ureteric calculus. Gallbladder is surgically absent. Aorta is nonaneurysmal. No evidence of pathologic lymph node enlargement. The stomach is not distended. No significant small bowel distention. No evidence of acute colitis. The cecum is located in the right upper quadrant on today's exam, as compared with right lower quadrant on the prior study. The appendix appears within normal limits. No evidence of ascites. No evidence of pneumoperitoneum. Question mild urinary bladder wall thickening appears unchanged. No evidence of pelvic mass. Surgical clips are identified posterior to the pubic bones bilaterally. Severe degenerative spondylosis is again seen. Appearance and alignment appears similar to the prior study with mild scoliosis. No evidence of aggressive bone destruction or acute fracture. Lumbar stenosis is again seen. IMPRESSION: 1. Proximal left ureteric calculus is again seen, slightly more proximal in position than prior study. Mild hydronephrosis, improved as compared with prior study. 2. Multiple nonobstructive right renal calculi are stable. 3. Question mild urinary bladder wall thickening, appears unchanged since prior study. 4. Mobile cecum. Electronically signed by: Kai Julien MD (05/16/2019 3:04 PM) [email or web address]
== END | disposition home or self-care (01) ==
LOC: CT 13:28
PROVIDERS: ATTEND Urology
DX: N13.2 Hydronephrosis with renal and ureteral calculous obstruction (principal)
CPT/HCPCS: 74176

== ENCOUNTER → 2019-05-28 | Outpatient (CLI) | payer MEDICARE | END | disposition home or self-care (01) | LOC: LAB 16:43 | PROVIDERS: ATTEND Urology | DX: R30.0 Dysuria (principal) | CPT/HCPCS: 87086; 87186 ==

== ENCOUNTER → 2019-06-12 | Outpatient (CLI) | payer MEDICARE ==
--- NOTE | 2019-06-12 17:00 | RAD ---
PROCEDURE: KUB STUDY DATE: 06/12/2019 CLINICAL INDICATION / HISTORY: Abdominal pain, calculus of kidney.. TECHNIQUE: Single AP image of the abdomen was obtained. COMPARISON: Abdomen CT without IV contrast of 05/16/2019. FINDINGS: Moderate stool throughout the visualized large bowel. A nonobstructive bowel gas pattern is present. No organomegaly or pathologic calcifications are identified. No acute osseous abnormality. IMPRESSION: No acute abdominal process. The stone in the left ureter on prior CT is not as well shown on the current exam and may have since passed. Electronically signed by: Danie Hill MD (06/12/2019 4:57 PM) [id number]
== END ==
LOC: RAD 15:56
PROVIDERS: ATTEND Nurse Practitioner
DX: N20.1 Calculus of ureter (principal); N30.20 Other chronic cystitis without hematuria
CPT/HCPCS: 74018; 87086

== ENCOUNTER → 2019-07-01 | Outpatient (CLI) | payer MEDICARE ==
--- NOTE | 2019-07-01 11:46 | RAD ---
Bilateral renal ultrasound complete: Reason for examination: Ureteral calculus with right flank pain. Comparison is made to previous study dated 05/14/2019. The right kidney measures 12.2 x 5.5 x 4.6 cm in greatest dimension and shows normal cortical medullary differentiation and good vascular flow. There is no mass or hydronephrosis. Echogenic flecks consistent with calculi are present but no obstructive uropathy is evident. The left kidney measures 10.6 x 5.6 x 5.5 cm in greatest dimension and shows normal cortical medullary differentiation and good vascular flow. There are no masses or hydronephrosis. There are renal calculi present but no obstructive uropathy is evident. No abnormality seen at the bladder. Bilateral ureteral jets are present. IMPRESSION: Bilateral renal calculi but no hydronephrosis or evidence of obstructive uropathy. Electronically signed by: Amanda Hughes MD (07/01/2019 11:43 AM) [id number]
== END | disposition home or self-care (01) ==
LOC: US 12:25
PROVIDERS: ATTEND Urology
DX: N20.2 Calculus of kidney with calculus of ureter (principal)
CPT/HCPCS: 76770

== ENCOUNTER → 2019-09-09 | Outpatient (CLI) | payer MEDICARE ==
[~2019-09-09] MED LIST changes: +ESTR-113 PO; -ESTR1TAB15 PO; +LEVO750T31 PO
[2019-09-09 12:45] LABS: BASO % 1 % (0-3); EOS # 0.1 x10^3/uL (0.0-0.7); EOS % 3 % (0-3); HEMATOCRIT 39.1 % (36.0-47.0); LYMPH # 1.3 x10^3/uL (1.0-4.8); LYMPH % 21 % (24-48); MEAN CORPUSCULAR HEMOGLOBIN 28 pg (25-35); MEAN CORPUSCULAR HGB CONC 33 g/dL (31-37); MEAN CORPUSCULAR VOLUME 85 fL (79-100); MONO # 0.3 x10^3/uL (0.0-1.1); MONO % 5 % (0-9); NEUT # 4.2 x10^3/uL (1.8-7.7); NEUT % 71 % (31-73); PLATELET COUNT 213 x10^3/uL (140-400); RED BLOOD COUNT 4.61 x10^6/uL (3.50-5.40); RED CELL DISTRIBUTION WIDTH 15.3 % (11.5-14.5); WHITE BLOOD COUNT 5.9 x10^3/uL (4.0-11.0)
== END | disposition home or self-care (01) ==
LOC: SURGPAT 11:36
PROVIDERS: ATTEND Obstetrics & Gynecology
DX: Z01.818 Encounter for other preprocedural examination (principal); Z11.59 Encounter for screening for other viral diseases
CPT/HCPCS: 85025; U0003; 36415; C9803-CS

== ENCOUNTER 2019-09-12 08:35 | Day surgery (SDC) | payer MEDICARE ==
[~2019-09-12] VITALS: Ht 172.7 cm; Wt 85.3 kg
[~2019-09-12 08:35] MED LIST changes: +DEXAMETHASONE SOD PHOS 4 MG/ML VIAL ONE; +HYDROmorphone 2 MG/ML VIAL IV PRN; +IV RINGERS,LACTATED 1000ML 1,000 ML IV SCH; +KETOROLAC 30 MG/ML VIAL. ONE; -LEVO750T31 PO; +LIDOCAINE 2% PF 5 ML VIAL. ONE; +MIDAZOLAM HCL/PF 2 MG/2 ML VIAL. ONE; +MORPHINE SULFATE 2 MG/ML VIAL. IV PRN; +ONDANSETRON PF 4 MG/2 ML VIAL. IV PRN; +ONDANSETRON PF 4 MG/2 ML VIAL. ONE; +PROCHLORPERAZINE 10 MG/2 ML VIAL. IV PRN; +PROPOFOL 10 MG/ML (20ML) VIAL. IV ONE; +SEVOFLURANE 61 TO 120 MINUTES. IH ONE; +fentaNYL PF VIAL 100 MCG/2 ML VIAL IV PRN; +fentaNYL PF VIAL 100 MCG/2 ML VIAL ONE
[2019-09-12] MEDS ORDERED: LIDOCAINE 1%/EPI 1:100,000 20 ML VIAL. ONE (09:45)
[2019-09-12] MEDS ORDERED: GLYCOPYRROLATE 1 MG/5 ML VIAL. ONE (10:02)
[2019-09-12] MEDS ORDERED: PHENYLEPHRINE in 0.9% NACL PF 1 MG/10 ML SYRINGE. IV ONE (10:18)
--- NOTE | 2019-09-12 11:16 | PDOC ---
BRIEF OPERATIVE NOTE Date: Sep 12, 2019 Pre-Op Diagnosis 1. Mesh erosion 2. Anterior Repair Post-Op Diagnosis Same Procedure Performed 1. Bladder mesh removal 2. Anterior Repair Surgeon Dr. Joshi Executive Director Of Marketing Electro Mechanical Technologist: Mary Lou Anesthesia Type: General Blood Loss 200 ml Specimens Obtained bladder mesh Findings bladder mesh erosion and cystocele Complications none Operative Note see dictation GAURANG JOSHI Jr, MD Sep 12, 2019 11:16
--- NOTE | 2019-09-12 11:21 | DISCH ---
DISCHARGE INSTRUCTIONS Condition on Discharge Condition on Discharge: Stable Activity After Discharge Activity Instructions for Disc: Activity as tolerated, Walk in house Bathing Instructions: Shower-keep dressing dry, No Tub Bath until see Lifting Instructions after Dis: No heavy lifting, No pulling or pushing, Do not lift >10 pounds Exercise Instruction after Dis: Progress as tolerated Driving Instructions after Dis: Do not drive today Weight Bearing Status after Di: No restrictions, Full weight bearing Diet after Discharge Diet after Discharge: Regular Additional Diet Restrictions: resume home diet Liquid Texture: Thin Liquid Swallowing Supervision: None needed Wound Incision Care Wound/Incision Care: May get incision wet Wound Care Equipment: Dressings Checks after Discharge Checks after discharge: Check blood press - daily Contacting the DRCaryl after DC Call your doctor for: If your condition worsens Follow-Up Follow up with: Dr. Joshi in 2 wks Treatment/Equipment after DC Adaptive Equipment Issued: None GAURANG JOSHI Jr, MD Sep 12, 2019 11:21
[2019-09-12] MEDS ORDERED: oxyCODONE/APAP 5/325 1 TAB TABLET PO ONE ×2 (11:30)
[2019-09-12] MEDS ORDERED: fentaNYL PF VIAL 100 MCG/2 ML VIAL ONE (11:37)
[2019-09-12] MEDS: fentaNYL PF VIAL 100 MCG/2 ML VIAL IV PRN ×2 (11:40→12:00)
--- NOTE | 2019-09-12 11:47 | OP ---
DATE OF SURGERY: 09/12/2019 PREOPERATIVE DIAGNOSES: 1. Mesh erosion. 2. Anterior repair. POSTOPERATIVE DIAGNOSES: 1. Mesh erosion. 2. Anterior repair. PROCEDURE PERFORMED: 1. Bladder mesh removal. 2. Anterior repair. SURGEON: Gaurang Joshi MD PHARMACY PICKING TECHNICIAN: José Miguel. ANESTHESIA: GETA. ESTIMATED BLOOD LOSS: 100 mL. COMPLICATIONS: None. FINDINGS: Bladder mesh erosion and cystocele. SUMMARY: A 58-year-old female who had dyspareunia and found to have bladder sling mesh erosion upon evaluation in clinic. Upon further evaluation from her previous surgical history, it appears that she had a TVT placed years ago for stress urinary incontinence. The patient was counseled on the risks, benefits and expectations of bladder mesh removal as well as anterior repair and voiced clear understanding to proceed. DESCRIPTION OF PROCEDURE: The patient was taken to surgery suite and placed in dorsal lithotomy position. She was prepped with Betadine solution and draped in sterile fashion. After adequate anesthesia, weighted speculum was placed. The mesh erosion area on the right anterior vaginal wall mucosa was palpated. Allis clamp was placed 1 cm below the urethra. A second Allis clamp placed about 4 cm below the first Allis clamp on the anterior vaginal wall mucosa. At the midline, 1% lidocaine with epinephrine injected between the 2 Allis clamps. Scalpel was utilized to make a linear incision between 2 Allis clamps. With aid of Metzenbaum scissors, the pubovesical fascia was dissected away from the anterior vaginal wall mucosa bilaterally, exposing the mesh erosion area on the right anterior vaginal wall. This was isolated with dissection with Metzenbaum scissors. Cystoscopy was then performed. There was no evidence of mesh erosion in the bladder itself or through the bladder any type of bladder injury. The cystoscope was removed. We then continued to isolate mesh erosion area, in which about 1.5 cm of mesh was removed. There were no other masses palpated or eroding through on the patient's left side; therefore, we continued on to have a repeat cystoscopy, which indicated no bladder injury or involvement. The cystoscope was removed. The anterior repair was performed, in which interrupted sutures of 2-0 Vicryl were placed reapproximating the pubovesical fascia. The excess anterior vaginal mucosa was excised with Metzenbaum scissors. The remaining anterior vaginal wall mucosa was reapproximated using 2-0 Vicryl suture in a [id number] manner. The patient tolerated the procedure well and was taken to recovery room in stable condition. Sponge and needle count correct x 3. GAURANG JOSHI MD DR: RAVI/sofia JOB#: [id number] / [id number]
[2019-09-12 12:00] VITALS: BP 113/55
== END 2019-09-12 12:40 | disposition home or self-care (01) ==
LOC: SURG 08:35
PROVIDERS: ATTEND Obstetrics & Gynecology
DX: T83.712A Erosion of implanted urethral mesh to surrounding organ or tissue, initial encounter (principal); N81.10 Cystocele, unspecified; K21.9 Gastro-esophageal reflux disease without esophagitis; M79.7 Fibromyalgia; F32.9 Major depressive disorder, single episode, unspecified; F41.9 Anxiety disorder, unspecified; G43.909 Migraine, unspecified, not intractable, without status migrainosus; Y83.8 Other surgical procedures as the cause of abnormal reaction of the patient, or of later complication, without mention of misadventure at the time of the procedure; Y92.89 Other specified places as the place of occurrence of the external cause; Z87.891 Personal history of nicotine dependence; Z90.49 Acquired absence of other specified parts of digestive tract; Z87.440 Personal history of urinary (tract) infections; Z87.442 Personal history of urinary calculi; Z96.653 Presence of artificial knee joint, bilateral; Z90.710 Acquired absence of both cervix and uterus; Z90.721 Acquired absence of ovaries, unilateral
CPT/HCPCS: 52310; 57240; A7015; J1100; J1885; J2250; J2370; J2405; J2704; J3010; J3490; J7030; J7120

== ENCOUNTER 2019-09-15 08:19 | Emergency (ER) | payer MEDICARE ==
[~2019-09-15] VITALS: Ht 172.7 cm; Wt 83.9 kg
[~2019-09-15 08:19] MED LIST changes: -DEXAMETHASONE SOD PHOS 4 MG/ML VIAL ONE; -HYDROmorphone 2 MG/ML VIAL IV PRN; -IV RINGERS,LACTATED 1000ML 1,000 ML IV SCH; -KETOROLAC 30 MG/ML VIAL. ONE; -LIDOCAINE 2% PF 5 ML VIAL. ONE; -MIDAZOLAM HCL/PF 2 MG/2 ML VIAL. ONE; -MORPHINE SULFATE 2 MG/ML VIAL. IV PRN; -ONDANSETRON PF 4 MG/2 ML VIAL. IV PRN; -ONDANSETRON PF 4 MG/2 ML VIAL. ONE; -PROCHLORPERAZINE 10 MG/2 ML VIAL. IV PRN; -PROPOFOL 10 MG/ML (20ML) VIAL. IV ONE; -SEVOFLURANE 61 TO 120 MINUTES. IH ONE; -fentaNYL PF VIAL 100 MCG/2 ML VIAL IV PRN; -fentaNYL PF VIAL 100 MCG/2 ML VIAL ONE
[2019-09-15] MEDS ORDERED: TAMSULOSIN 0.4 MG CAP.ER.24H. PO ONE (09:00)
[2019-09-15] MEDS ORDERED: HYDROcodone/APAP 5/325MG 1 TAB TABLET PO ONE (09:00)
[2019-09-15 10:40] LABS: BILIRUBIN,URINE NEGATIVE (NEG); CLARITY,URINE CLEAR; COLOR,URINE YELLOW; NITRITE,URINE NEGATIVE (NEG); PH,URINE 6.5 (<5.0-8.0); PROTEIN,URINE NEGATIVE (NEG-TRACE)
[2019-09-15 10:53] LABS: BACTERIA,URINE 0 /HPF (0-FEW); SQUAMOUS EPITHELIAL CELL,UR FEW /LPF; WBC,URINE OCC /HPF (0-4)
--- NOTE | 2019-09-15 11:39 | PHYS DOC ---
Past Medical History Past Medical History: Arthritis, Fibromyalgia, GERD, Other Additional Past Medical Histor: rheumatoid and osteoarthritis, tmj Past Surgical History: Cholecystectomy, Hysterectomy, Knee Replacement, Other Additional Past Surgical Histo: bilat knees, rt wrist cyst, lt. lumpectomy, bladder sling , 2HERNIATED DISC Smoking Status: Former Smoker Alcohol Use: Occasionally Drug Use: None General Adult EDM: Chief Complaint: POST-OP PROBLEM HPI: HPI: Patient is a 58 year old female who presented to the ER for evaluation of not able to urinate, pain when she tried to selfp-catheter at home. Patient has bladder mesh removal a few day ago due to not able to urinate. She has been self-catheter at home but after the surgery it has been too painful to do it ag ain. No fever, no nausea or vomiting, no abdominal pain. Review of Systems: Review of Systems: Constitutional: Denies fever or chills. [] Eyes: Denies change in visual acuity. [] HENT: Denies nasal congestion or sore throat. [] Respiratory: Denies cough or shortness of breath. [] Cardiovascular: Denies chest pain or edema. [] GI: Denies abdominal pain, nausea, vomiting, bloody stools or diarrhea. [] : Positive for dysuria Musculoskeletal: Denies back pain or joint pain. [] Integument: Denies rash. [] Neurologic: Denies headache, focal weakness or sensory changes. [] Endocrine: Denies polyuria or polydipsia. [] Lymphatic: Denies swollen glands. [] Psychiatric: Denies depression or anxiety. [] Heart Score: Risk Factors: Risk Factors: DM, Current or recent (<one month) smoker, HTN, HLP, family history of CAD, obesity. Risk Scores: Score 0 - 3: 2.5% MACE over next 6 weeks - Discharge Home Score 4 - 6: 20.3% MACE over next 6 weeks - Admit for Clinical Observation Score 7 - 10: 72.7% MACE over next 6 weeks - Early Invasive Strategies Current Medications: Current Medications Medications (Trade) Dose Ordered Sig/Roberto Carlos Start Time Stop Time Status Last Admin Dose Admin Acetaminophen/ Hydrocodone Bitart (Lortab 5/325) 1 tab 1X ONCE 09/15/19 09:00 09/15/19 09:02 DC 09/15/19 09:11 1 TAB Tamsulosin HCl (Flomax) 0.4 mg 1X ONCE 09/15/19 09:00 09/15/19 09:02 DC 09/15/19 09:11 0.4 MG Allergies: Allergies: Allergies Coded Allergies Type Severity Reaction Last Updated Verified No Known Drug Allergies 09/15/19 No Physical Exam: PE: Constitutional: Well developed, well nourished, no acute distress, non-toxic appearance. [] HENT: Normocephalic, atraumatic, bilateral external ears normal, oropharynx moist, no oral exudates, nose normal. [] Eyes: PERRLA, EOMI, conjunctiva normal, no discharge. [] Neck: Normal range of motion, no tenderness, supple, no stridor. [] Cardiovascular:Heart rate regular rhythm, no murmur [] Lungs & Thorax: Bilateral breath sounds clear to auscultation [] Abdomen: Bowel sounds normal, soft, no tenderness, no masses, no pulsatile masses. [] Skin: Warm, dry, no erythema, no rash. [] Back: No tenderness, no CVA tenderness. [] Extremities: No tenderness, no cyanosis, no clubbing, ROM intact, no edema. [] Neurologic: Alert and oriented X 3, normal motor function, normal sensory function, no focal deficits noted. [] Psychologic: Affect normal, judgement normal, mood normal. [] Current Patient Data: Labs: Laboratory Tests Test 09/15/19 10:00 Urine Collection Type Unknown Urine Color Yellow Urine Clarity Clear Urine pH 6.5 (<5.0-8.0) Urine Specific [place] 1.010 (1.000-1.030) Urine Protein Negative mg/dL (NEG-TRACE) Urine Glucose (UA) Negative mg/dL (NEG) Urine Ketones (Stick) Negative mg/dL (NEG) Urine Blood Small (NEG) Urine Nitrite Negative (NEG) Urine Bilirubin Negative (NEG) Urine Urobilinogen Dipstick 1.0 mg/dL (0.2 mg/dL) Urine Leukocyte Esterase Trace (NEG) Urine RBC 6-10 /HPF (0-2) Urine WBC Occ /HPF (0-4) Urine Squamous Epithelial Cells Few /LPF Urine Bacteria 0 /HPF (0-FEW) Vital Signs: Vital Signs Date Time Temp Pulse Resp B/P (MAP) Pulse Ox O2 Delivery O2 Flow Rate FiO2 09/15/19 09:11 16 97 Room Air 09/15/19 08:25 98.0 73 137/92 (107) 98.0 EKG: EKG: [] Radiology/Procedures: Radiology/Procedures: [] Course & Med Decision Making: Course & Med Decision Making Pertinent Labs and Imaging studies reviewed. (See chart for details) Discussed with patient's OPERATIONS RESEARCH GROUP MANAGER doctor who recommended to place rashid catheter, discharge home with rashid catheter, will see patient in the clinic this Monday. Emmy Disclaimer: Emmy Disclaimer: This electronic medical record was generated, in whole or in part, using a voice recognition dictation system. Departure Departure Impression: Primary Impression: Urinary retention Disposition: HOME, SELF-CARE Condition: STABLE Referrals: NELL ROMEO (PCP) GAURANG GARCIA Jr, MD please follow up with YOUR OB.ONLINE PUBLISHER ON THIS COMING MONDAY Patient Instructions: Rashid Catheter Care, Adult, Urinary Retention, Acute, Female Additional Instructions: Thank you for visiting our Emergency Department. We appreciate you trusting us with your care. If any additional problems come up don't hesitate to return to visit us. Please follow up with your primary care provider so they can plan additional care if needed and know about the problem that you had. If symptoms worsen come back to the Emergency Department. Any concerning symptoms that start such as chest pain, shortness of air, weakness or numbness on one side of the body, running high fevers or any other concerning symptoms return to the ER. Justicifation of Admission Dx: Justifications for Admission: Justification of Admission Dx: N/A KATHARINA MENSAH DO Sep 15, 2019 11:39
[2019-09-15 12:40] VITALS: BP 111/66
== END 2019-09-15 12:40 | disposition home or self-care (01) ==
LOC: ER 08:19
DX: R33.9 Retention of urine, unspecified (principal); R10.2 Pelvic and perineal pain; R11.0 Nausea; R51 Headache; K21.9 Gastro-esophageal reflux disease without esophagitis; Z90.49 Acquired absence of other specified parts of digestive tract; Z90.710 Acquired absence of both cervix and uterus; Z87.891 Personal history of nicotine dependence
CPT/HCPCS: 51702; 81001; 87086; 99284

== ENCOUNTER 2019-09-20 09:58 | Emergency (ER) | payer MEDICARE ==
[~2019-09-20] VITALS: Ht 172.7 cm; Wt 85.9 kg
[2019-09-20] MEDS ORDERED: ONDANSETRON PF 4 MG/2 ML VIAL. IVP ONE (11:15)
[2019-09-20] MEDS ORDERED: MORPHINE SULFATE 4 MG/ML VIAL. IV ONE (11:15)
[2019-09-20 11:20] LABS: BASO % 1 % (0-3); EOS # 0.2 x10^3/uL (0.0-0.7); EOS % 3 % (0-3); HEMATOCRIT 33.2 % (36.0-47.0); HEMOGLOBIN 11.2 g/dL (12.0-15.5); LYMPH # 1.2 x10^3/uL (1.0-4.8); LYMPH % 18 % (24-48); MEAN CORPUSCULAR HEMOGLOBIN 29 pg (25-35); MEAN CORPUSCULAR HGB CONC 34 g/dL (31-37); MEAN CORPUSCULAR VOLUME 86 fL (79-100); MONO # 0.3 x10^3/uL (0.0-1.1); MONO % 5 % (0-9); NEUT % 73 % (31-73); PLATELET COUNT 237 x10^3/uL (140-400); RED BLOOD COUNT 3.88 x10^6/uL (3.50-5.40); RED CELL DISTRIBUTION WIDTH 15.3 % (11.5-14.5); WHITE BLOOD COUNT 6.8 x10^3/uL (4.0-11.0)
[2019-09-20 11:23] LABS: BILIRUBIN,URINE NEGATIVE (NEG); CLARITY,URINE CLEAR; COLOR,URINE YELLOW; NITRITE,URINE NEGATIVE (NEG); PROTEIN,URINE 30 mg/dL (NEG-TRACE); UROBILINOGEN,URINE 0.2 mg/dL (0.2 mg/dL)
[2019-09-20 11:29] LABS: CALCIUM 8.8 mg/dL (8.5-10.1); CREATININE 0.8 mg/dL (0.6-1.0); GFR 74.2; POTASSIUM 3.9 mmol/L (3.5-5.1)
[2019-09-20 11:32] LABS: BACTERIA,URINE MODERATE /HPF (0-FEW); SQUAMOUS EPITHELIAL CELL,UR OCC /LPF; WBC,URINE 20-40 /HPF (0-4)
[2019-09-20 11:35] LABS: ALBUMIN 3.2 g/dL (3.4-5.0); ALBUMIN/GLOBULIN RATIO 0.9 (1.0-1.7); TOTAL BILIRUBIN 0.5 mg/dL (0.2-1.0); TOTAL PROTEIN 6.6 g/dL (6.4-8.2)
[2019-09-20] MEDS ORDERED: IOHEXOL 240 MG/ML 50ML VIAL. PO ONE (11:45)
[2019-09-20] MEDS ORDERED: IOHEXOL 300 MG/ML 100ML VIAL. IV ONE (11:45)
--- NOTE | 2019-09-20 11:57 | PHYS DOC ---
Past Medical History Past Medical History: Arthritis, Fibromyalgia, GERD, Other Additional Past Medical Histor: rheumatoid and osteoarthritis, tmj Past Surgical History: Cholecystectomy, Hysterectomy, Knee Replacement, Other Additional Past Surgical Histo: bilat knees, rt wrist cyst, lt. lumpectomy, bladder sling , 2HERNIATED DISC Smoking Status: Former Smoker Alcohol Use: None Drug Use: None General Adult EDM: Chief Complaint: PELVIC PAIN HPI: HPI: Patient is a 58 year old female who presented to ER today for evaluation of pelvic pain. Patient had bladder mesh removal on September [address] Joshi due to incontinence. Patient still not able to urinate herself. Patient was seen here 2 days later due to pelvic pain and not able to urinate. An indwelling Gloria catheter was placed. Patient was seen by her BUSINESS SERVICES ANALYST 2 days ago for evaluation he prescribed antibiotic for possible UTI and vaginal cream to apply in her private area. Patient continued to have pain, hurt whenever she sits on her buttock. She called her lead recoverer who told to come to ER. Patient denies any fever, no nausea vomiting. Review of Systems: Review of Systems: Constitutional: Denies fever or chills. [] Eyes: Denies change in visual acuity. [] HENT: Denies nasal congestion or sore throat. [] Respiratory: Denies cough or shortness of breath. [] Cardiovascular: Denies chest pain or edema. [] GI: Denies abdominal pain, nausea, vomiting, bloody stools or diarrhea. [] : Positive for pelvic pain Musculoskeletal: Denies back pain or joint pain. [] Integument: Denies rash. [] Neurologic: Denies headache, focal weakness or sensory changes. [] Endocrine: Denies polyuria or polydipsia. [] Lymphatic: Denies swollen glands. [] Psychiatric: Denies depression or anxiety. [] Heart Score: Risk Factors: Risk Factors: DM, Current or recent (<one month) smoker, HTN, HLP, family history of CAD, obesity. Risk Scores: Score 0 - 3: 2.5% MACE over next 6 weeks - Discharge Home Score 4 - 6: 20.3% MACE over next 6 weeks - Admit for Clinical Observation Score 7 - 10: 72.7% MACE over next 6 weeks - Early Invasive Strategies Current Medications: Current Medications Medications (Trade) Dose Ordered Sig/Roberto Carlos Start Time Stop Time Status Last Admin Dose Admin Ceftriaxone Sodium (Rocephin) 1 gm 1X ONCE 09/20/19 12:00 09/20/19 12:01 UNV Iohexol (Omnipaque 240 Mg/ml) 30 ml 1X ONCE 09/20/19 11:45 09/20/19 11:47 DC Iohexol (Omnipaque 300 Mg/ml) 75 ml 1X ONCE 09/20/19 11:45 09/20/19 11:47 DC Morphine Sulfate (Morphine Sulfate) 4 mg 1X ONCE 09/20/19 11:15 09/20/19 11:17 DC 09/20/19 11:25 4 MG Ondansetron HCl (Zofran) 4 mg 1X ONCE 09/20/19 11:15 09/20/19 11:17 DC 09/20/19 11:25 4 MG Allergies: Allergies: Allergies Coded Allergies Type Severity Reaction Last Updated Verified No Known Drug Allergies 09/15/19 No Physical Exam: PE: Constitutional: Well developed, well nourished, no acute distress, non-toxic appearance. [] HENT: Normocephalic, atraumatic, bilateral external ears normal, oropharynx moist, no oral exudates, nose normal. [] Eyes: PERRLA, EOMI, conjunctiva normal, no discharge. [] Neck: Normal range of motion, no tenderness, supple, no stridor. [] Cardiovascular:Heart rate regular rhythm, no murmur [] Lungs & Thorax: Bilateral breath sounds clear to auscultation [] Abdomen: Bowel sounds normal, soft, there is suprapubic tenderness to palpation, no masses, no pulsatile masses. Pelvic exam: External pelvic exam did not show any swelling or irritation, no bleeding, Gloria catheter in place, there is no swelling around the urethral area. Skin: Warm, dry, no erythema, no rash. [] Back: No tenderness, no CVA tenderness. [] Extremities: No tenderness, no cyanosis, no clubbing, ROM intact, no edema. [] Neurologic: Alert and oriented X 3, normal motor function, normal sensory function, no focal deficits noted. [] Psychologic: Affect normal, judgement normal, mood normal. [] Current Patient Data: Labs: Laboratory Tests Test 09/20/19 10:16 09/20/19 11:13 Urine Collection Type Unknown Urine Color Yellow Urine Clarity Clear Urine pH 6.0 (<5.0-8.0) Urine Specific [place] <=1.005 (1.000-1.030) Urine Protein 30 mg/dL (NEG-TRACE) Urine Glucose (UA) Negative mg/dL (NEG) Urine Ketones (Stick) Negative mg/dL (NEG) Urine Blood Large (NEG) Urine Nitrite Negative (NEG) Urine Bilirubin Negative (NEG) Urine Urobilinogen Dipstick 0.2 mg/dL (0.2 mg/dL) Urine Leukocyte Esterase Moderate (NEG) Urine RBC 3-5 /HPF (0-2) Urine WBC 20-40 /HPF (0-4) Urine Squamous Epithelial Cells Occ /LPF Urine Bacteria Moderate /HPF (0-FEW) White Blood Count 6.8 x10^3/uL (4.0-11.0) Red Blood Count 3.88 x10^6/uL (3.50-5.40) Hemoglobin 11.2 g/dL (12.0-15.5) L Hematocrit 33.2 % (36.0-47.0) L Mean Corpuscular Volume 86 fL (79-100) Mean Corpuscular Hemoglobin 29 pg (25-35) Mean Corpuscular Hemoglobin Concent 34 g/dL (31-37) Red Cell Distribution Width 15.3 % (11.5-14.5) H Platelet Count 237 x10^3/uL (140-400) Neutrophils (%) (Auto) 73 % (31-73) Lymphocytes (%) (Auto) 18 % (24-48) L Monocytes (%) (Auto) 5 % (0-9) Eosinophils (%) (Auto) 3 % (0-3) Basophils (%) (Auto) 1 % (0-3) Neutrophils # (Auto) 5.0 x10^3/uL (1.8-7.7) Lymphocytes # (Auto) 1.2 x10^3/uL (1.0-4.8) Monocytes # (Auto) 0.3 x10^3/uL (0.0-1.1) Eosinophils # (Auto) 0.2 x10^3/uL (0.0-0.7) Basophils # (Auto) 0.0 x10^3/uL (0.0-0.2) Sodium Level 139 mmol/L (136-145) Potassium Level 3.9 mmol/L (3.5-5.1) Chloride Level 102 mmol/L (98-107) Carbon Dioxide Level 28 mmol/L (21-32) Anion Gap 9 (6-14) Blood Urea Nitrogen 13 mg/dL (7-20) Creatinine 0.8 mg/dL (0.6-1.0) Estimated GFR (Cockcroft-Gault) 74.2 BUN/Creatinine Ratio 16 (6-20) Glucose Level 85 mg/dL (70-99) Calcium Level 8.8 mg/dL (8.5-10.1) Total Bilirubin 0.5 mg/dL (0.2-1.0) Aspartate Amino Transferase (AST) 14 U/L (15-37) L Alanine Aminotransferase (ALT) 20 U/L (14-59) Alkaline Phosphatase 82 U/L (46-116) Total Protein 6.6 g/dL (6.4-8.2) Albumin 3.2 g/dL (3.4-5.0) L Albumin/Globulin Ratio 0.9 (1.0-1.7) L Laboratory Tests 09/20/19 11:13 Laboratory Tests 09/20/19 11:13 Vital Signs: Vital Signs Date Time Temp Pulse Resp B/P (MAP) Pulse Ox O2 Delivery O2 Flow Rate FiO2 09/20/19 11:25 18 09/20/19 10:19 97.8 75 146/87 (106) 100 Room Air 97.8 EKG: EKG: [] Radiology/Procedures: Radiology/Procedures: [][facility] [address] [place], [place] [id number] IMAGING REPORT Signed PATIENT: ZOIE CORBIN ACCOUNT: [id number] : 1960 LOCATION: ER AGE: 58 SEX: F EXAM STATUS: REG ER ORD. PHYSICIAN: KATHARINA MENSAH DO REASON: lower abdominal pain, pelvic pain, had bladder surgery last week. PROCEDURE: CT ABD PELV W/ORAL&IV CONTRAST EXAM: CT Abdomen and Pelvis with IV contrast INDICATION: Reason: lower abdominal pain, pelvic pain, had bladder surgery last week. / Spl. Instructions: INJ 75ML OMNI 300 OMNI 240 30 ML PO / History: TECHNIQUE: Multi-detector row CT images were acquired from the lung bases through the abdomen and pelvis with the use of IV contrast. Sagittal and coronal images were acquired from the transaxial data. All CT scans performed at this facility utilize dose optimization techniques as appropriate to the exam, including the following: Automated exposure control and adjustment of the mA and/or KV according to patient size (this includes techniques or standardized protocols for targeted exams where dose is indication/reason for exam). IV CONTRAST: Administered ORAL CONTRAST: Administered COMPARISON: Noncontrast abdomen pelvis CT of 05/16/2019 FINDINGS: LOWER CHEST: Unremarkable LIVER: Unremarkable BILIARY SYSTEM: Gallbladder surgically absent. Bile ducts are not dilated. PANCREAS: Unremarkable SPLEEN: Unremarkable ADRENALS: Unremarkable KIDNEYS & URETERS: Punctate bilateral renal calcifications. Symmetric enhancement with no hydronephrosis or hydroureter. BLADDER: Diffuse urinary bladder wall thickening is present. There is an indwelling Gloria catheter. The bladder is under distended. REPRODUCTIVE ORGANS: Unremarkable GASTROINTESTINAL: The stomach, small bowel, and colon are unremarkable. The appendix is normal. MESENTERY/PERITONEUM/RETROPERITONEUM: Unremarkable VASCULAR: Unremarkable LYMPH NODES: No adenopathy OSSEOUS & SOFT TISSUES: Multilevel lumbar spinal degenerative spondylosis. No acute or aggressive osseous lesions. IMPRESSION: 1. Diffuse urinary bladder wall thickening with a Gloria catheter in place could reflect cystitis in the appropriate clinical context. Otherwise no acute findings in the abdomen or pelvis noted on CT. 2. Bilateral nonobstructing renal nephrolithiasis. Electronically signed by: Jonathan Hill MD (09/20/2019 1:29 PM) [id number] DICTATED and SIGNED BY: JONATHAN HILL MD DATE: 09/20/19 1329 Course & Med Decision Making: Course & Med Decision Making Pertinent Labs and Imaging studies reviewed. (See chart for details) Patient is a 58-year-old female who was evaluated in the ER due to pelvic pain and bladder irritation, had indwelling Gloria catheter placed about 4 days ago. Patient recently had bladder mesh removal by her lead recoverer. Patient evaluated in ER show that she might have a urinary tract infection, CT scan s howed her bladder was taken consistent with cystitis. This physician discussed patient condition with Dr. Joshi who is her lead recoverer who recommended to send patient home, put her on a different stronger antibiotic, he will see her in the clinic next week. Emmy Disclaimer: Emmy Disclaimer: This electronic medical record was generated, in whole or in part, using a voice recognition dictation system. Departure Departure Impression: Primary Impression: UTI (urinary tract infection) Additional Impression: Cystitis Disposition: HOME, SELF-CARE Condition: STABLE Referrals: NELL ROMEO (PCP) GAURANG JOSHI Jr, MD Call the surgeon for follow-up next week Patient Instructions: Urinary Tract Infection Additional Instructions: Thank you for visiting our Emergency Department. We appreciate you trusting us with your care. If any additional problems come up don't hesitate to return to visit us. Please follow up with your primary care provider so they can plan additional care if needed and know about the problem that you had. If symptoms worsen come back to the Emergency Department. Any concerning symptoms that start such as chest pain, shortness of air, weakness or numbness on one side of the body, running high fevers or any other concerning symptoms return to the ER. Scripts Levofloxacin (LEVAQUIN) 750 Mg Tablet 1 TAB PO DAILY for 7 Days, #7 TAB 0 Refills Prov: KATHARINA MENSAH DO 09/20/19 Justicifation of Admission Dx: Justifications for Admission: Justification of Admission Dx: N/A KATHARINA MENSAH DO Sep 20, 2019 11:57
[2019-09-20] MEDS ORDERED: cefTRIAXone IV Push 1 GM VIAL. IVP ONE (12:00)
[2019-09-20 12:58] VITALS: BP 122/60
--- NOTE | 2019-09-20 13:32 | RAD ---
EXAM: CT Abdomen and Pelvis with IV contrast INDICATION: Reason: lower abdominal pain, pelvic pain, had bladder surgery last week. / Spl. Instructions: INJ 75ML OMNI 300 OMNI 240 30 ML PO / History: TECHNIQUE: Multi-detector row CT images were acquired from the lung bases through the abdomen and pelvis with the use of IV contrast. Sagittal and coronal images were acquired from the transaxial data. All CT scans performed at this facility utilize dose optimization techniques as appropriate to the exam, including the following: Automated exposure control and adjustment of the mA and/or KV according to patient size (this includes techniques or standardized protocols for targeted exams where dose is indication/reason for exam). IV CONTRAST: Administered ORAL CONTRAST: Administered COMPARISON: Noncontrast abdomen pelvis CT of 05/16/2019 FINDINGS: LOWER CHEST: Unremarkable LIVER: Unremarkable BILIARY SYSTEM: Gallbladder surgically absent. Bile ducts are not dilated. PANCREAS: Unremarkable SPLEEN: Unremarkable ADRENALS: Unremarkable KIDNEYS & URETERS: Punctate bilateral renal calcifications. Symmetric enhancement with no hydronephrosis or hydroureter. BLADDER: Diffuse urinary bladder wall thickening is present. There is an indwelling Gloria catheter. The bladder is under distended. REPRODUCTIVE ORGANS: Unremarkable GASTROINTESTINAL: The stomach, small bowel, and colon are unremarkable. The appendix is normal. MESENTERY/PERITONEUM/RETROPERITONEUM: Unremarkable VASCULAR: Unremarkable LYMPH NODES: No adenopathy OSSEOUS & SOFT TISSUES: Multilevel lumbar spinal degenerative spondylosis. No acute or aggressive osseous lesions. IMPRESSION: 1. Diffuse urinary bladder wall thickening with a Gloria catheter in place could reflect cystitis in the appropriate clinical context. Otherwise no acute findings in the abdomen or pelvis noted on CT. 2. Bilateral nonobstructing renal nephrolithiasis. Electronically signed by: Danie Hill MD (09/20/2019 1:29 PM) [id number]
[2019-09-20] MEDS ORDERED: LEVO750T31 PO (14:11)
== END 2019-09-20 14:29 | disposition home or self-care (01) ==
LOC: ER 09:58
DX: N39.0 Urinary tract infection, site not specified (principal); R10.2 Pelvic and perineal pain; M19.90 Unspecified osteoarthritis, unspecified site; M79.7 Fibromyalgia; K21.9 Gastro-esophageal reflux disease without esophagitis; Z90.710 Acquired absence of both cervix and uterus; Z90.49 Acquired absence of other specified parts of digestive tract; Z98.890 Other specified postprocedural states; Z90.89 Acquired absence of other organs; Z87.891 Personal history of nicotine dependence
CPT/HCPCS: 36415; 74177; 80053; 81001; 85025; 87086; 96374; 96375; 99285; J0696; J2270; J2405; Q9966; Q9967

== ENCOUNTER 2019-09-25 12:01 | Emergency (ER) | payer MEDICARE ==
[~2019-09-25] VITALS: Ht 172.7 cm; Wt 84.8 kg
[~2019-09-25 12:01] MED LIST changes: +LEVO750T31 PO
--- NOTE | 2019-09-25 12:51 | PHYS DOC ---
Past Medical History Past Medical History: Arthritis, Fibromyalgia, GERD, Other Additional Past Medical Histor: rheumatoid and osteoarthritis, tmj Past Surgical History: Cholecystectomy, Hysterectomy, Knee Replacement, Other Additional Past Surgical Histo: bilat knees, rt wrist cyst, lt. lumpectomy, bladder sling , 2HERNIATED DISC Smoking Status: Former Smoker Alcohol Use: None Drug Use: None General Adult EDM: Chief Complaint: URINARY RETENTION HPI: HPI: Patient is a 58 year old female patient presents with urinary catheter leakage. Patient states she had a catheter placed following a bladder sling procedure approximately [address] Joshi, states she had been seen in this ER approximately 1 week ago for urinary symptoms, had been put on prescription for Levaquin. States at that time she had not been able to urinate on her own. Says she had called Dr. Joshi's office this morning, was unable to have an appointment,if she is having continued discomfort or leakage she should have the Gloria catheter removed in the ER. Patient states she has had some minimal back pain on and off for the last week, no change recently. Denies nausea, denies vomiting, denies abdominal pain. Denies vaginal discharge. States she finished the antibiotics, and feels better after that. She does have a follow-up appoint with Dr. Joshi's office on Monday Review of Systems: Review of Systems: Constitutional: Denies fever or chills. [] Respiratory: Denies cough or shortness of breath. [] Cardiovascular: Denies chest pain or edema. [] GI: Denies abdominal pain, nausea, vomiting, bloody stools or diarrhea. [] : Reports leakage around her Gloria catheter [] Musculoskeletal: States recurring back pain, denies joint pain. [] Integument: Denies rash. [] Neurologic: Denies headache, focal weakness or sensory changes. [] Endocrine: Denies polyuria or polydipsia. [] Heart Score: Risk Factors: Risk Factors: DM, Current or recent (<one month) smoker, HTN, HLP, family history of CAD, obesity. Risk Scores: Score 0 - 3: 2.5% MACE over next 6 weeks - Discharge Home Score 4 - 6: 20.3% MACE over next 6 weeks - Admit for Clinical Observation Score 7 - 10: 72.7% MACE over next 6 weeks - Early Invasive Strategies Allergies: Allergies: Allergies Coded Allergies Type Severity Reaction Last Updated Verified No Known Drug Allergies 09/15/19 No Physical Exam: PE: Constitutional: Well developed, well nourished, no acute distress, non-toxic appearance. [] Cardiovascular:Heart rate regular rhythm, no murmur [] Lungs & Thorax: Bilateral breath sounds clear to auscultation [] Abdomen: Bowel sounds normal, soft, no tenderness, no masses, no pulsatile masses. [] Skin: Warm, dry, no erythema, no rash. [] Back: No tenderness, no CVA tenderness. [] Extremities: No tenderness, no cyanosis, no clubbing, ROM intact, no edema. [] Neurologic: Alert and oriented X 3, normal motor function, normal sensory function, no focal deficits noted. [] Current Patient Data: Vital Signs: Vital Signs Date Time Temp Pulse Resp B/P (MAP) Pulse Ox O2 Delivery O2 Flow Rate FiO2 09/25/19 12:25 98.2 72 18 122/64 (83) 99 Room Air 98.2 EKG: EKG: [] Radiology/Procedures: Radiology/Procedures: [] Course & Med Decision Making: Course & Med Decision Making Pertinent Labs and Imaging studies reviewed. (See chart for details) [] Patient requests removal of Gloria catheter, will remove and patient will attempt to urinate. Patient able to urinate, will plan to discharge with follow-up. @1400 -patient has attempted to urinate multiple times, has been unable to produce more than 5 mL of urine. Bladder scan performed, noting 580 cc. Discussed with patient, plan to reinsert Gloria catheter, with her to continue her follow-up on Monday with HR ADVISOR. Patient agreement with this plan. Emmy Disclaimer: Emmy Disclaimer: This electronic medical record was generated, in whole or in part, using a voice recognition dictation system. Departure Departure Impression: Primary Impression: Urinary retention Disposition: HOME, SELF-CARE Condition: GOOD Referrals: NELL ROMEO (PCP) GAURANG JOSHI Jr, MD Patient Instructions: Indwelling Urinary Catheter Care-Brief Additional Instructions: As we discussed, keep your appointment with Dr. Joshi on Monday. Continue to take your regular home medications. Continue to care for your catheter as you had been previously. Justicifation of Admission Dx: Justifications for Admission: Justification of Admission Dx: N/A JODY HERNANDEZ APRN Sep 25, 2019 12:51
[2019-09-25 14:16] VITALS: BP 126/87
[2019-09-25 14:45] LABS: BILIRUBIN,URINE NEGATIVE (NEG); CLARITY,URINE CLEAR; COLOR,URINE YELLOW; NITRITE,URINE NEGATIVE (NEG); PROTEIN,URINE NEGATIVE (NEG-TRACE); UROBILINOGEN,URINE 0.2 mg/dL (0.2 mg/dL)
[2019-09-25 15:01] LABS: SQUAMOUS EPITHELIAL CELL,UR FEW /LPF
[2019-09-25 15:02] LABS: AMORPHOUS SEDIMENT,UR PRESENT /HPF; BACTERIA,URINE 0 /HPF (0-FEW)
== END 2019-09-25 15:08 | disposition home or self-care (01) ==
LOC: ER 12:01
DX: T83.038A Leakage of other urinary catheter, initial encounter (principal); R33.9 Retention of urine, unspecified; K21.9 Gastro-esophageal reflux disease without esophagitis; Z87.891 Personal history of nicotine dependence; Y84.6 Urinary catheterization as the cause of abnormal reaction of the patient, or of later complication, without mention of misadventure at the time of the procedure; Y92.89 Other specified places as the place of occurrence of the external cause
CPT/HCPCS: 51702; 81001; 87086; 99284; 99285

== ENCOUNTER 2020-03-21 11:10 | Emergency (ER) | payer MEDICARE ==
[~2020-03-21] VITALS: Ht 172.7 cm; Wt 86.0 kg
[2020-03-21 11:15] VITALS: BP 135/83
[2020-03-21] MEDS ORDERED: CYCLOBENZAPRINE 10 MG TABLET. PO ONE (11:45)
[2020-03-21] MEDS ORDERED: HYDROcodone/APAP 5/325MG 1 TAB TABLET PO ONE (11:45)
[2020-03-21] MEDS ORDERED: OXYMETAZOLINE 0.05% NASAL SPRAY 30ML BOTTLE. NS ONE (11:45)
--- NOTE | 2020-03-21 12:46 | PHYS DOC ---
Past Medical History Past Medical History: Arthritis, Fibromyalgia, GERD, Other Additional Past Medical Histor: rheumatoid and osteoarthritis, tmj (BINU ZIMMER APRN) Past Surgical History: Cholecystectomy, Hysterectomy, Knee Replacement, Other Additional Past Surgical Histo: bilat knees, rt wrist cyst, lt. lumpectomy, bladder sling , 2HERNIATED DISC (BINU ZIMMER APRN) Smoking Status: Former Smoker Alcohol Use: None Drug Use: None (BINU ZIMMER APRN) General Adult EDM: Chief Complaint: MECHANICAL FALL HPI: HPI: Patient is a 59 year old male with history of anxiety, fibromyalgia, who presents to the ED today to be evaluated status post falling. Patient states she was ambulating in her house when she tripped over a broom stick and fell hitting her face on the floor. Patient denies any loss of consciousness, denies being on any blood thinners. He is complaining of nosebleeding, posterior neck pain rated as mild and intermittent worse on range of motion. Denies any mid or low back pain. Denies anything relieving her symptoms. (BINU ZIMMER APRN) Review of Systems: Review of Systems: Constitutional: Denies fever or chills. [] Eyes: Denies change in visual acuity. [] HENT: Reports nose bleeding. Denies nasal congestion or sore throat. [] Respiratory: Denies cough or shortness of breath. [] Cardiovascular: Denies chest pain or edema. [] GI: Denies abdominal pain, nausea, vomiting, bloody stools or diarrhea. [] : Denies dysuria. [] Musculoskeletal: Reports neck pain, denies mid or low back pain Integument: Denies rash. [] Neurologic: Denies headache, focal weakness or sensory changes. [] Psychiatric: Denies depression or anxiety. [] (BINU ZIMMER APRN) Heart Score: Risk Factors: Risk Factors: DM, Current or recent (<one month) smoker, HTN, HLP, family history of CAD, obesity. Risk Scores: Score 0 - 3: 2.5% MACE over next 6 weeks - Discharge Home Score 4 - 6: 20.3% MACE over next 6 weeks - Admit for Clinical Observation Score 7 - 10: 72.7% MACE over next 6 weeks - Early Invasive Strategies (BINU ZIMMER APRN) Current Medications: Current Medications Medications (Trade) Dose Ordered Sig/Roberto Carlos Start Time Stop Time Status Last Admin Dose Admin Acetaminophen/ Hydrocodone Bitart (Lortab 5/325) 2 tab 1X ONCE 03/21/20 11:45 03/21/20 11:46 DC 03/21/20 11:51 2 TAB Cyclobenzaprine HCl (Flexeril) 10 mg 1X ONCE 03/21/20 11:45 03/21/20 11:46 DC 03/21/20 11:51 10 MG Oxymetazoline HCl (Afrin) 2 spray 1X ONCE 03/21/20 11:45 03/21/20 11:46 DC 03/21/20 11:51 2 SPRAY (BINU ZIMMER IMAGING NURSE) Allergies: Allergies: Allergies Coded Allergies Type Severity Reaction Last Updated Verified No Known Drug Allergies 09/15/19 No (BINU ZIMMER IMAGING NURSE) Physical Exam: PE: Constitutional: Well developed, well nourished, no acute distress, non-toxic appearance. [] HENT: Normocephalic,bilateral external ears normal, oropharynx moist, no oral exudates, Right nasal cavity with trace amount of bleeding, clotting noted. Bruising noted on the nasal bridge. Eyes: PERRLA, EOMI, conjunctiva normal, no discharge. [] Neck: Normal range of motion, diffuse paraspinal muscle tenderness to posterior cervical spine, no midline cervical spine tenderness, supple, no stridor. [] Cardiovascular:Heart rate regular rhythm, no murmur [] Lungs & Thorax: Bilateral breath sounds clear to auscultation [] Abdomen: Bowel sounds normal, soft, no tenderness, no masses, no pulsatile masses. [] Skin: Warm, dry, no erythema, no rash. [] Back: No tenderness, no CVA tenderness. [] Extremities: No tenderness, no cyanosis, no clubbing, ROM intact, no edema. [] Neurologic: Alert and oriented X 3, normal motor function, normal sensory function, no focal deficits noted. [] Psychologic: Affect normal, judgement normal, mood normal. [] (BINU ZIMMER IMAGING NURSE) EKG: EKG: [] (BINU ZIMMER IMAGING NURSE) Radiology/Procedures: Radiology/Procedures: [][facility] [address] [place] [address] IMAGING REPORT Signed PATIENT: ZOIE CORBIN ACCOUNT: [id number] : 1960 LOCATION: ER AGE: 59 SEX: F EXAM STATUS: REG ER ORD. PHYSICIAN: BINU ZIMMER APRN REASON: fall pain PROCEDURE: CT MAXILLOFACIAL WO CONTRAST EXAMINATION: CT MAXILLOFACIAL WITHOUT CONTRAST, CT HEAD AND C-SPINE WO CLINICAL HISTORY: Fall TECHNIQUE: Serial axial images without IV contrast were obtained from the vertex to the foramen magnum. Spiral high resolution axial unenhanced images were obtained through the facial bones with sagittal and coronal planar reconstructions. CT of the cervical spine without IV contrast. Spiral, high resolution axial images were obtained from the skull base to the cervicothoracic junction with sagittal and coronal planar reconstructions. CT Dose Reduction Employed: One or more of the following individualized dose reduction techniques were utilized for this examination: 1. Automated exposure control 2. Adjustment of the mA and/or kV according to patient size 3. Use of iterative reconstruction technique. COMPARISON: None FINDINGS: BRAIN: No evidence of acute infarct, acute intracranial hemorrhage, or mass. No extra- axial fluid collection. Minimal hypoattenuation in the supraventricular white matter, compatible with chronic microvascular ischemic changes. Mild diffuse parenchymal volume loss with compensatory ventricular enlargement. Ventricles and basal cisterns otherwise unremarkable. Skull base unremarkable. MAXILLOFACIAL: No evidence of acute facial bone fracture. No focal soft tissue swelling. Orbits and globes intact. Soft tissue planes of the orbits maintained. No significant paranasal sinus disease. Mastoids clear. C-SPINE: Reversal of the normal cervical lordosis, likely positional. Craniovertebral and atlantoaxial alignment maintained. No evidence of acute fracture or spondylolisthesis. Multilevel degenerative disc disease, severe at C5-6 and C6- 7. Mild facet arthropathy, greatest at C5-6 and C6-7. Moderate neural foraminal narrowing in the mid to lower cervical spine, greatest at C5-6 and C6-7. No significant osseous spinal stenosis. Paraspinal soft tissues unremarkable. No prevertebral soft tissue swelling. IMPRESSION: No evidence of acute intracranial abnormality. No acute facial bone fracture. No evidence of acute osseous abnormality involving the cervical spine. Multilevel cervical degenerative disc disease, neural foraminal narrowing, and facet arthropathy greatest at C5-6 and C6-7. Electronically signed by: Nirmal Estes DO (03/21/2020 1:18 PM) [facility] DICTATED and SIGNED BY: NIRMAL ESTES DO DATE: 03/21/20 [id number] (BINU ZIMMER APRN) Course & Med Decision Making: Course & Med Decision Making Pertinent Labs and Imaging studies reviewed. (See chart for details) This is a 59-year-old female patient presenting to the ED today with nose pain, neck pain, patient fell. She was nose bleeding on arrival to the ED, pressure as well as Afrin was applied to the nasal cavity the right, bleeding has stopped. CT of the head, cervical spine, maxillofacial were negative for any acute findings. Bleeding has stopped. Tetanus is up-to-date. Discharge to home. Follow-up with PCP in 1 to 2 weeks. (BINU ZIMMER APRN) Dragon Disclaimer: Dragon Disclaimer: This electronic medical record was generated, in whole or in part, using a voice recognition dictation system. (BINU ZIMMER APRN) Departure Departure Impression: Primary Impression: Fall from standing Qualified Codes: W19.XXXA - Unspecified fall, initial encounter Additional Impressions: Acute cervical sprain Qualified Codes: S13.9XXA - Sprain of joints and ligaments of unspecified parts of neck, initial encounter Contusion of nose Qualified Codes: S00.33XA - Contusion of nose, initial encounter Closed head injury Qualified Codes: S09.90XA - Unspecified injury of head, initial encounter Disposition: 01 DC HOME SELF CARE/HOMELESS Condition: STABLE Referrals: NELL ROMEO (PCP) follow up with your doctor in 1 week Patient Instructions: Contusion, Fall Prevention and Home Safety, Head Injury, Adult, [id number] Additional Instructions: You were evaluated in the emergency room after falling, your CAT scan of the head, face, and neck are negative for any acute findings. Follow-up with your doctor in the course of next week. Come back to the ED at any point you have uncontrolled pain, confusion, excessive sleepiness, uncontrolled nausea or vomiting, or any other concerning symptoms. Attending Signature Attending Signature I have reviewed the PA/BRANCH LENDING OFFICER's note and plan of care. I was available for consultation as needed during the patient's visit in the emergency department. I agree with the clinical impression, plan, and disposition. (MAYE RETANA DO) BINU ZIMMER APRN Mar 21, 2020 12:46 MAYE RETANA DO Mar 21, 2020 18:31
--- NOTE | 2020-03-21 13:21 | RAD ---
EXAMINATION: CT MAXILLOFACIAL WITHOUT CONTRAST, CT HEAD AND C-SPINE WO CLINICAL HISTORY: Fall TECHNIQUE: Serial axial images without IV contrast were obtained from the vertex to the foramen magnum. Spiral high resolution axial unenhanced images were obtained through the facial bones with sagittal a nd coronal planar reconstructions. CT of the cervical spine without IV contrast. Spiral, high resolution axial images were obtained from the skull base to the cervicothoracic junction with sagittal and coronal planar reconstructions. CT Dose Reduction Employed: One or more of the following individualized dose reduction techniques wer e utilized for this examination: 1. Automated exposure control 2. Adjustment of the mA and/or kV ac cording to patient size 3. Use of iterative reconstruction technique. COMPARISON: None FINDINGS: BRAIN: No evidence of acute infarct, acute intracranial hemorrhage, or mass. No extra-axial fluid collection . Minimal hypoattenuation in the supraventricular white matter, compatible with chronic microvascular ischemic changes. Mild diffuse parenchymal volume loss with compensatory ventricular enlargement. Ve ntricles and basal cisterns otherwise unremarkable. Skull base unremarkable. MAXILLOFACIAL: No evidence of acute facial bone fracture. No focal soft tissue swelling. Orbits and globes intact. S oft tissue planes of the orbits maintained. No significant paranasal sinus disease. Mastoids clear. C-SPINE: Reversal of the normal cervical lordosis, likely positional. Craniovertebral and atlantoaxial alignme nt maintained. No evidence of acute fracture or spondylolisthesis. Multilevel degenerative disc disea se, severe at C5-6 and C6-7. Mild facet arthropathy, greatest at C5-6 and C6-7. Moderate neural bibiana inal narrowing in the mid to lower cervical spine, greatest at C5-6 and C6-7. No significant osseous spinal stenosis. Paraspinal soft tissues unremarkable. No prevertebral soft tissue swelling. IMPRESSION: No evidence of acute intracranial abnormality. No acute facial bone fracture. No evidence of acute osseous abnormality involving the cervical spine. Multilevel cervical degenerative disc disease, neural foraminal narrowing, and facet arthropathy grea test at C5-6 and C6-7. Electronically signed by: Nirmal Bowles DO (03/21/2020 1:18 PM) [facility]
== END 2020-03-21 13:52 | disposition home or self-care (01) ==
LOC: ER 11:10
DX: S13.4XXA Sprain of ligaments of cervical spine, initial encounter (principal); S00.33XA Contusion of nose, initial encounter; R04.0 Epistaxis; M19.90 Unspecified osteoarthritis, unspecified site; M79.7 Fibromyalgia; K21.9 Gastro-esophageal reflux disease without esophagitis; Z90.710 Acquired absence of both cervix and uterus; Z90.49 Acquired absence of other specified parts of digestive tract; Z98.890 Other specified postprocedural states; Z87.891 Personal history of nicotine dependence; W01.0XXA Fall on same level from slipping, tripping and stumbling without subsequent striking against object, initial encounter; Y93.89 Activity, other specified; Y92.89 Other specified places as the place of occurrence of the external cause; Y99.8 Other external cause status
CPT/HCPCS: 70450; 70486; 72125; 99285

== ENCOUNTER → 2020-05-29 | Outpatient (CLI) | payer OTHER ==
--- NOTE | 2020-05-29 14:57 | RAD ---
INDICATION: Reason: ABD PELVIS SWELLING/MASS / Spl. Instructions: / History: . COMPARISON: September 2019 TECHNIQUE: Axial CT images obtained through the abdomen and pelvis without contrast. One or more of the following individualized dose reduction techniques were utilized for this examinat ion: 1. Automated exposure control; 2. Adjustment of the mA and/or kV according to patient size; 3 . Use of iterative reconstruction technique. FINDINGS: Mild patchy opacities at the partially visualized lung base. Abdominal aorta is not aneurysmal. No intrahepatic bile duct dilation. Postcholecystectomy. Limited assessment of pancreas without contrast. Spleen is mildly prominent in size. There are some lobulated contour to the left greater right kidney. Urinary bladder partially distende d with some prominence of the wall anteriorly and mild indistinctness of the adjacent fat. Nonobstruc tive left renal stone. No left-sided hydronephrosis. No right-sided hydronephrosis. No periappendiceal inflammatory changes. The colon is distended with a large amount of stool. Degenerative changes throughout the spine with multilevel central canal and neural foraminal stenosis . IMPRESSION: * Large amount of stool is seen throughout the colon. Would correlate for possible causes such as co nstipation. * There is wall thickening of the anterior aspect of the urinary bladder with mild indistinctness of the adjacent fat. Would correlate with symptoms in the region given that the inflammatory process dickey ch as cystitis or a bladder wall lesion is not excluded given this finding. Limited evaluation of the urinary bladder secondary to only being partially distended and no contrast within. The patient has had wall thickening in the past as well. * Mild patchy opacity at lung bases. This is a common finding and frequently secondary to mild atele ctasis given the location unless the patient is having symptoms of pneumonia. Electronically signed by: Hang Bermudez MD (05/29/2020 2:55 PM) [id number]
== END ==
LOC: CT 14:12
PROVIDERS: ATTEND Urology
DX: N20.0 Calculus of kidney (principal); N32.89 Other specified disorders of bladder; K59.00 Constipation, unspecified; J18.9 Pneumonia, unspecified organism; R19.09 Other intra-abdominal and pelvic swelling, mass and lump
CPT/HCPCS: 74176

== ENCOUNTER → 2020-07-13 | Outpatient (CLI) | payer OTHER ==
[~2020-07-13] MED LIST changes: +REGADENOSON 0.4 MG/5 ML DISP.SYRIN. IV ONE
--- NOTE | 2020-07-13 12:35 | CARD ---
MR#: [id number] Date of Study: 07/13/2020 Ordering Physician: OLIVER CARNEY, Referring Physician: OLIVER CARNEY, Tech: Sonia Boyd [facility] [place] APPROVED REPORT EXAM: Two-dimensional and M-mode echocardiogram with Doppler and color Doppler. Other Information Quality : Good INDICATION Atrial Fibrillation 2D DIMENSIONS RVDd3.0 (2.9-3.5cm)Left Atrium(2D)3.5 (1.6-4.0cm) IVSd0.9 (0.7-1.1cm)Aortic Root(2D)2.9 (2.0-3.7cm) LVDd5.1 (3.9-5.9cm)LVOT Diameter2.0 (1.8-2.4cm) PWd0.9 (0.7-1.1cm)LVDs3.1 (2.5-4.0cm) FS (%) 39.2 %SV84.1 ml LVEF(%)69.4 (>50%) Aortic Valve AoV Peak Jung.104.7cm/sAoV VTI25.4cm AO Peak GR.4.4mmHgLVOT Peak Jung.83.8cm/s LVOT VTI 21.26cmAO Mean GR.3mmHg HOLLEY (VMAX)1.42sg9RXB (VTI)2.57cm2 Mitral Valve MV E Oqyulytp71.7cm/sMV DECEL XLBM030qd MV A Oyhyzfwe04.4cm/sMV OJO44ss E/A Ratio1.1MVA (PHT)3.16cm2 TDI E/Lateral E'6.4E/Medial E'7.2 Pulmonary Valve PV Peak Fplxbxyo75.6cm/sPV Peak Grad.4mmHg Tricuspid Valve TR P. Ufbhhlkk426fw/sRAP PXVFORZR8yuAv TR Peak Gr.99ucOrSGSJ28knPs Pulmonary Vein S1 Cupgdtnw95.3cm/sD2 Qbqlkjns22.0cm/s PVa [id number] LEFT VENTRICLE The left ventricle is normal size. There is normal left ventricular wall thickness. The left ventricu lar systolic function is normal. The Ejection Fraction is estimatedv at 50%. There is normal LV segm ental wall motion. Transmitral Doppler flow pattern is Grade II-pseudonormal filling dynamics. RIGHT VENTRICLE The right ventricle is normal size. There is normal right ventricular wall thickness. The right ventr icular systolic function is normal. ATRIA The left atrium size is normal. The right atrium size is normal. The interatrial septum is intact wit h no evidence for an atrial septal defect or patent foramen ovale as noted on 2-D or Doppler imaging. AORTIC VALVE The aortic valve is normal in structure and function. Doppler and Color Flow revealed no significant aortic regurgitation. Calculated aortic valve area is 2.76 cm2 with maximum pressure gradient of 5 mm Hg and mean pressure gradient of 3 mmHg. There is no significant aortic valvular stenosis. MITRAL VALVE The mitral valve is normal in structure and function. There is no evidence of mitral valve prolapse. There is no mitral valve stenosis. Doppler and Color-flow revealed trace mitral regurgitation. TRICUSPID VALVE The tricuspid valve is normal in structure and function. Doppler and Color Flow revealed trace tricus pid regurgitation with an estimated PAP of 26 mmHg. There is no tricuspid valve stenosis. PULMONIC VALVE The pulmonic valve is not well visualized. Doppler and Color Flow revealed trace pulmonic valvular re gurgitation. GREAT VESSELS The aortic root is normal in size. The ascending aorta is normal in size. The IVC is normal in size a nd collapses >50% with inspiration. PERICARDIAL EFFUSION There is no evidence of significant pericardial effusion. Critical Notification Critical Value: No <Conclusion> The left ventricle is normal size. The left ventricular systolic function is normal. The Ejection Fraction is estimatedv at 50%. Doppler and Color Flow revealed no significant aortic regurgitation. There is no significant aortic valvular stenosis. Doppler and Color-flow revealed trace mitral regurgitation. Doppler and Color Flow revealed trace tricuspid regurgitation with an estimated PAP of 26 mmHg. Signed by : Juanito Reynoso MD Electronically Approved : 07/13/2020 12:34:58
--- NOTE | 2020-07-14 12:53 | RAD ---
MR#: [id number] Date of Study: 07/13/2020 Ordering Physician: OLIVER CARNEY, Referring Physician: FAY WAGNER Tech: RT Juan Pablo (R) (N) APPROVED REPORT Test Type: Pharmacological Stress Nurse/Tech: Kassie Perry RN Test Indications: Dyspnea on exertion Cardiac History: High cholesterol Medications: See Electronic Medical Record Medical History: See Electronic Medical Record Resting ECG: SB Resting Heart Rate: 58 bpm Resting Blood Pressure: 119/63mmHg Pretest Chest Pain: No chest pain Nurse/Tech Notes S1,S2 and lungs clear to auscultation. Consent: The procedure was explained to the patient in lay terms. Informed consent was witnessed. Jorge eout was entered into [employer]. History and Stress Test performed by TIFF Moreno, NEEMA (R) (N) Pharm. Details Pharmacologic stress testing was performed using 0.4mg per 5ml of regadenoson given intravenously ove r 7-10 seconds. Stress Symptoms No chest pain or symptoms. POST EXERCISE Reason for Termination: Infusion complete Target HR: No Max HR: 88 bpm 63% of Maximum Predicted HR: 138 bpm Max Blood Pressure: 136/60mmHg Blood Pressure response to exercise: Normal blood pressure response during stress. Heart Rate response to exercise: WNL Chest Pain: No. Arrhythmia: No. ST Change: No. INTERPRETATION Stress EKG Conclusion: The resting EKG shows a sinus rhythm and mild nonspecific T wave changes. The stress EKG shows no significant changes from baseline. No EKG evidence of stress-induced ischemia. Imaging Protocol IMAGE PROTOCOL: Rest Tc-99m/stress Tc-99m 1 day Rest: Stress: Viability: Radiopharm.Tc99m ZjvavitlnAa01j Sestamibi Zmfn38gZs 32mCi Duration 15min. 10min. Img Date 07/13/2020 07/13/2020 Inj-Img Ejtu69dlc. 60min. Rest Admin Site:IV - Right AntecubitalAdministrator:TIFF Moreno, NEEMA (R)(N) Stress Admin Site: IV - Right AntecubitalAdministrator: Lexi Seth, NMTCB, ARRT (R)(N) STRESS DATA End Diast. Vol.73.0mlAv. Heart Rate72.0bpm End Syst. Vol.18.0mlCO Index BSA0.0L/min Myocardial Icoa090.0gEject. Vbgndfjm49.0% Stress Rates Pk. Fill Rate3.62EDV/secLVtime Pk. Fill 217.19msec Pk. Empty Rate4.81ESV/secLVtime Pk. Cxufa198.60msec 04/12 Pk. Fill0.72EDV/sec Stress Scores Regional WT0.00Summed WT0.00 Regional WM0.00Summed WM0.00 LV Perfusion The stress scans showed no significant defects. The rest scans showed no significant defects. Nuclear imaging shows no reversible ischemia or infarct. Wall Motion Left ventricular systolic function is normal with no regional wall motion abnormalities and an ejecti on fraction of greater than 70%. LV Perf. Quant 17 Seg. SSS1.00 17 Seg. SRS10.00 17 Seg. SDS0.00 Stress Defect Extent (% LAD)0.00Rest Defect Extent (% LAD)23.80Rev. Defect Extent (% LAD)0.00 Stress Defect Extent (% LCX) 0.00Rest Defect Extent (% LCX)35.00Rev. Defect Extent (% LCX)0.00 Stress Defect Extent (% RCA)0.00Rest Defect Extent (% RCA)0.00Rev. Defect Extent (% RCA)0.00 Stress Defect Extent (% ASHKAN)0.00Rest Defect Extent (% ASHKAN)21.50Rev. Defect Extent (% ASHKAN)0.00 Conclusion 1. No EKG evidence of stress-induced ischemia. 2. Nuclear imaging shows no reversible ischemia or infarct. 3. Normal left ventricular systolic function with no regional wall motion abnormalities and an ejecti on fraction of greater than 70%. 4. Low risk Lexiscan nuclear stress test. Signed by : Juanito Reynoso MD Electronically Approved : 07/14/2020 12:52:52
== END ==
LOC: NM 09:39
PROVIDERS: ATTEND Internal Medicine Cardiovascular Disease
DX: R00.2 Palpitations (principal); R06.00 Dyspnea, unspecified
CPT/HCPCS: 78452; 93017; 93306; A9500; J2785

== ENCOUNTER → 2020-07-14 | Outpatient (CLI) | payer MEDICARE, OTHER ==
[~2020-07-14] MED LIST changes: -REGADENOSON 0.4 MG/5 ML DISP.SYRIN. IV ONE
--- NOTE | 2020-07-15 14:07 | RAD ---
DATE: 07/14/2020 EXAM: MAMMO JENAE SCREENING BILATERAL HISTORY: Routine screening. COMPARISON: Bilateral mammogram 06/15/2018. CAD was utilized. FINDINGS: The breast parenchyma is heterogeneously dense, which could reduce sensitivity of mammography. Small nodular asymmetry in the inner left breast at posterior depth is slightly larger, no definite correlate on the MLO view. Small well- circumscribed mass in the left breast near the 3:00 A position is stable. There are no suspicious microcalcifications or evidence of architectural distortion. IMPRESSION: Small nodular asymmetry in the inner left breast at posterior depth has mildly increased in size. Margins are less well-defined. Recommend further evaluation with spot compression CC and true lateral tomosynthesis digital views. If finding persists ultrasound is recommended. BI-RADS CATEGORY: 0 INCOMPLETE: NEEDS ADDITIONAL IMAGING EVALUATION AND/OR PRIOR MAMMOGRAMS FOR COMPARISON. RECOMMENDED FOLLOW-UP: ADD ADDITIONAL IMAGING PQRS compliance statement: Patient information was entered into a reminder system with a target due date for the next mammogram. Mammography is a sensitive method for finding small breast cancers, but it does not detect them all and is not a substitute for careful clinical examination. A negative mammogram does not negate a clinically suspicious finding and should not result in delay in biopsying a clinically suspicious abnormality. "Our facility is accredited by the [employer] Mammography Program." MTDD
== END ==
LOC: MAMMO 13:20
PROVIDERS: ATTEND Family Medicine
DX: Z12.31 Encounter for screening mammogram for malignant neoplasm of breast (principal); N63.20 Unspecified lump in the left breast, unspecified quadrant
CPT/HCPCS: 77063; 77067

== ENCOUNTER → 2020-07-29 | Outpatient (CLI) | payer OTHER ==
--- NOTE | 2020-07-29 11:22 | RAD ---
EXAM: Left breast diagnostic mammogram; left breast sonogram. HISTORY: 59-year-old female presents for evaluation of nodularity within the left breast demonstrated on a screening mammogram dated 07/14/2020. TECHNIQUE: Full-field digital and spot compression views of the left breast are obtained. Sonographic imaging of the left breast and axilla was also performed. COMPARISON: Mammogram dated 07/14/2020 and mammogram and sonogram dated 06/25/2018 and 06/15/2018. BREAST PARENCHYMAL DENSITY: Level C - Heterogeneously dense. FINDINGS: There is a persistent circumscribed 8 mm nodule within the posterior 8:00 position of the l eft breast with additional mammographic views. There is no associated architectural distortion or deanne picious calcification in this location. Sonographic imaging demonstrates no correlate for the mammographic nodule of concern. There is a 6 mm complicated cyst at the 11:00 position 2 cm from the nipple. No additional lesion is seen. IMPRESSION: 1. Persistent circumscribed 8 mm nodule within the posterior 8:00 position of the left breast, withou t a sonographic correlate. This lesion measured 7 mm on a study performed 06/15/2018. The minimal inter honey change and configuration of this lesion favor a benign etiology such as a sonographically occult isoechoic lymph node or fibroadenoma. 2. 6 mm benign complicated cyst at the 11:00 position 2 cm from the nipple. 3. BI-RADS Category 3: Probably benign finding(s). Short term follow up with a diagnostic left breast mammogram and sonogram in 6 months is recommended to confirm stability and benignity. If your mammogram demonstrates that you have dense breast tissue, which could hide abnormalities, and if you have other risk factors for breast cancer that have been identified, you might benefit from s upplemental screening tests that may be suggested by your ordering physician. Dense breast tissue, i n and of itself, is a relatively common condition. This information is not provided to cause undue c oncern, but rather to raise your awareness and to promote discussion with your physician regarding th e presence of other risk factors, in addition to dense breast tissue. A report of your mammography re sults will be sent to you and your physician. You should contact your physician if you have any ques tions or concerns regarding this report. Mammography is a sensitive method for finding small breast cancers, but it does not detect them all a nd is not a substitute for careful clinical examination. A negative mammogram does not negate a clin ically suspicious finding and should not result in delay in biopsying a clinically suspicious abnorma lity. PQRS compliance statement - Patient information was entered into a reminder system with a target due date for the next mammogram. "Our facility is accredited by the [employer] Mammography Program." Electronically signed by: Sophy Macario MD (07/29/2020 11:20 AM) [id number]
== END ==
LOC: MAMMO 10:17
PROVIDERS: ATTEND Family Medicine
DX: N60.02 Solitary cyst of left breast (principal)
CPT/HCPCS: 76641; 77065

== ENCOUNTER 2020-12-07 15:48 | Emergency (ER) | payer OTHER ==
[2020-12-08] MEDS ORDERED: ONDA4TAB7 PO (09:59)
[2020-12-08] MEDS ORDERED: HYDR-2761 PO (09:59)
== END 2020-12-07 20:00 | disposition left against medical advice (07) ==
LOC: ER 15:48
DX: R10.9 Unspecified abdominal pain (principal); Z53.21 Procedure and treatment not carried out due to patient leaving prior to being seen by health care provider

== ENCOUNTER 2020-12-08 07:22 | Emergency (ER) | payer OTHER ==
[~2020-12-08] VITALS: Ht 172.7 cm; Wt 90.3 kg
--- NOTE | 2020-12-08 07:38 | ED.ADGEN ---
Past Medical History Past Medical History: Arthritis, Fibromyalgia, GERD, Other Additional Past Medical Histor: rheumatoid and osteoarthritis, tmj Past Surgical History: Cholecystectomy, Hysterectomy, Knee Replacement, Other Additional Past Surgical Histo: bilat knees, rt wrist cyst, lt. lumpectomy, bladder sling , 2HERNIATED DISC Smoking Status: Former Smoker Alcohol Use: None Drug Use: None General Adult EDM: Chief Complaint: ABDOMINAL PAIN HPI: HPI: Patient is a 60-year-old female who arrives ambulatory to the emergency department complaining of abdominal pain with nausea and vomiting. Patient reports she is now in her fifth day of having multiple episodes of nausea with vomiting. Patient states she was able to keep some food down yesterday however whenever she lays down she becomes very nauseated. Patient describes abdominal pain at the right side of her abdomen as well as the lower portion. The patient states despite having this pain she does not have any diarrhea where she had fevers. She further denies any chest pain or shortness of air. She is awake, alert and nontoxic-appearing. Review of Systems: Review of Systems: Constitutional: Denies fever or chills. [] Eyes: Denies change in visual acuity. [] HENT: Denies nasal congestion or sore throat. [] Respiratory: Denies cough or shortness of breath. [] Cardiovascular: Denies chest pain or edema. [] GI: Reports abdominal pain with nausea and vomiting. Denies bloody stools or diarrhea. [] : Denies dysuria. [] Musculoskeletal: Denies back pain or joint pain. [] Integument: Denies rash. [] Neurologic: Denies headache, focal weakness or sensory changes. [] Endocrine: Denies polyuria or polydipsia. [] Lymphatic: Denies swollen glands. [] Psychiatric: Denies depression or anxiety. [] Current Medications: Current Medications Medications (Trade) Dose Ordered Sig/Roberto Carlos Start Time Stop Time Status Last Admin Dose Admin Info (CONTRAST GIVEN -- Rx MONITORING) 1 each PRN DAILY PRN 12/08/20 09:15 12/10/20 09:14 Iohexol (Omnipaque 300 Mg/ml) 75 ml 1X ONCE 12/08/20 09:00 12/08/20 09:06 DC 12/08/20 09:28 75 ML Morphine Sulfate (Morphine Sulfate) 4 mg PRN Q15MIN PRN 12/08/20 07:45 12/09/20 07:44 12/08/20 08:49 4 MG Ondansetron HCl (Zofran) 4 mg 1X ONCE 12/08/20 07:45 12/08/20 07:46 DC 12/08/20 08:48 4 MG Sodium Chloride 1,000 ml @ 1,000 mls/hr Q1H 12/08/20 07:45 12/08/20 08:44 DC 12/08/20 08:50 1,000 MLS/HR Allergies: Allergies: Allergies Coded Allergies Type Severity Reaction Last Updated Verified No Known Drug Allergies 12/08/20 No Physical Exam: PE: Constitutional: Well developed, well nourished, no acute distress, non-toxic appearance. [] HENT: Normocephalic, atraumatic, bilateral external ears normal, oropharynx moist, no oral exudates, nose normal. [] Eyes: PERRLA, EOMI, conjunctiva normal, no discharge. [] Neck: Normal range of motion, no tenderness, supple, no stridor. [] Cardiovascular:Heart rate regular rhythm, no murmur [] Lungs & Thorax: Bilateral breath sounds clear to auscultation [] Abdomen: Minimal tenderness of the right lower quadrant as well as suprapubic part of the abdomen. Bowel sounds normal, soft, no masses, no pulsatile masses. [] Skin: Warm, dry, no erythema, no rash. [] Back: No tenderness, no CVA tenderness. [] Extremities: No tenderness, no cyanosis, no clubbing, ROM intact, no edema. [] Neurologic: Alert and oriented X 3, normal motor function, normal sensory function, no focal deficits noted. [] Psychologic: Affect normal, judgement normal, mood normal. [] Current Patient Data: Labs: Laboratory Tests Test 12/08/20 07:30 12/08/20 08:08 Urine Collection Type Void Urine Color Yellow Urine Clarity Clear Urine pH 5.5 (<5.0-8.0) Urine Specific [place] 1.010 (1.000-1.030) Urine Protein Negative mg/dL (NEG-TRACE) Urine Glucose (UA) Negative mg/dL (NEG) Urine Ketones (Stick) Trace mg/dL (NEG) Urine Blood Negative (NEG) Urine Nitrite Negative (NEG) Urine Bilirubin Negative (NEG) Urine Urobilinogen Dipstick 1.0 mg/dL (0.2 mg/dL) Urine Leukocyte Esterase Trace (NEG) Urine RBC 0 /HPF (0-2) Urine WBC 5-10 /HPF (0-4) Urine Squamous Epithelial Cells Mod /LPF Urine Bacteria Few /HPF (0-FEW) Urine Mucus Slight /LPF White Blood Count 5.5 x10^3/uL (4.0-11.0) Red Blood Count 4.45 x10^6/uL (3.50-5.40) Hemoglobin 12.8 g/dL (12.0-15.5) Hematocrit 37.7 % (36.0-47.0) Mean Corpuscular Volume 85 fL (79-100) Mean Corpuscular Hemoglobin 29 pg (25-35) Mean Corpuscular Hemoglobin Concent 34 g/dL (31-37) Red Cell Distribution Width 15.0 % (11.5-14.5) H Platelet Count 245 x10^3/uL (140-400) Neutrophils (%) (Auto) 66 % (31-73) Lymphocytes (%) (Auto) 23 % (24-48) L Monocytes (%) (Auto) 6 % (0-9) Eosinophils (%) (Auto) 4 % (0-3) H Basophils (%) (Auto) 1 % (0-3) Neutrophils # (Auto) 3.7 x10^3/uL (1.8-7.7) Lymphocytes # (Auto) 1.3 x10^3/uL (1.0-4.8) Monocytes # (Auto) 0.3 x10^3/uL (0.0-1.1) Eosinophils # (Auto) 0.2 x10^3/uL (0.0-0.7) Basophils # (Auto) 0.0 x10^3/uL (0.0-0.2) Sodium Level 142 mmol/L (136-145) Potassium Level 4.3 mmol/L (3.5-5.1) Chloride Level 105 mmol/L (98-107) Carbon Dioxide Level 25 mmol/L (21-32) Anion Gap 12 (6-14) Blood Urea Nitrogen 9 mg/dL (7-20) Creatinine 0.7 mg/dL (0.6-1.0) Estimated GFR (Cockcroft-Gault) 85.9 BUN/Creatinine Ratio 13 (6-20) Glucose Level 100 mg/dL (70-99) H Calcium Level 9.2 mg/dL (8.5-10.1) Total Bilirubin 0.7 mg/dL (0.2-1.0) Aspartate Amino Transferase (AST) 23 U/L (15-37) Alanine Aminotransferase (ALT) 30 U/L (14-59) Alkaline Phosphatase 90 U/L (46-116) Total Protein 6.7 g/dL (6.4-8.2) Albumin 3.6 g/dL (3.4-5.0) Albumin/Globulin Ratio 1.2 (1.0-1.7) Lipase 72 U/L (73-393) L Laboratory Tests 12/08/20 08:08 Laboratory Tests 12/08/20 08:08 Vital Signs: Vital Signs Date Time Temp Pulse Resp B/P (MAP) Pulse Ox O2 Delivery O2 Flow Rate FiO2 12/08/20 08:35 66 142/81 (101) 98 12/08/20 07:32 98.6 18 Room Air 98.6 EKG: EKG: [] Heart Score: C/O Chest Pain: No Risk Factors: Risk Factors: DM, Current or recent (<one month) smoker, HTN, HLP, family history of CAD, obesity. Risk Scores: Score 0 - 3: 2.5% MACE over next 6 weeks - Discharge Home Score 4 - 6: 20.3% MACE over next 6 weeks - Admit for Clinical Observation Score 7 - 10: 72.7% MACE over next 6 weeks - Early Invasive Strategies Radiology/Procedures: Radiology/Procedures: [] Impression: [facility] [address] [place] [address] IMAGING REPORT Signed PATIENT: ZOIE CORBIN ACCOUNT: [id number] : 1960 LOCATION: ER AGE: 60 SEX: F EXAM STATUS: REG ER ORD. PHYSICIAN: LIANA PADILLA DO REASON: pain/vomiting PROCEDURE: CT ABD PELV W/ IV CONTRST ONLY PQRS Compliance Statement: One or more of the following individualized dose reduction techniques were utilized for this examination: 1. Automated exposure control 2. Adjustment of the mA and/or kV according to patient size 3. Use of iterative reconstruction technique CT abdomen/pelvis with contrast 12/08/2020 9:01 AM INDICATION: Pain, vomiting COMPARISON: None available TECHNIQUE: Multiple axial CT images of the abdomen and pelvis were obtained after the intravenous administration of 75 mL Omnipaque 300. Coronal and sagittal reformats are provided. FINDINGS: There is subsegmental atelectasis at the lung bases. Heart size is within normal limits. Liver, spleen, and adrenal glands are normal in appearance. Main pancreatic duct is dilated measuring 6 mm. There is mild to moderate atrophy of the pancreas. A definite pancreatic mass is not visualized. No peripancreatic inflammatory changes are identified. Gallbladder surgically absent. Common bile duct measures up to 9 mm which may be within the limits of reservoir effect status post cholecystectomy. No significant intrahepatic bladder ductal dilatation. Portal venous system is patent. The abdominal aorta is normal in course and caliber. There are no pathologically enlarged lymph nodes in the abdomen and pelvis. There is no abdominal free fluid. There is no free intraperitoneal air. Small and large bowel are normal in caliber. There is no evidence for bowel obstruction. There are no pericolonic inflammatory changes. A normal, nondilated appendix is visualized without adjacent inflammatory changes. The kidneys enhance symmetrically. There is no suspicious renal mass. There is no hydronephrosis. There is suggestion of a 2 mm nonobstructing calculus in interpolar left kidney (series 4, image 36). Urinary bladder is within normal limits given degree of distention. No suspicious pelvic mass. There is reverse S-shaped scoliosis of the thoracolumbar spine with moderate to advanced lumbar spondylosis. IMPRESSION: 1. No acute abnormality is identified in abdomen and pelvis. Specifically, no bowel obstruction or inflammation. 2. There is dilatation of main pancreatic duct measuring up to 6 mm. No definite obstructive etiology is not visualized on this examination. Findings are stable from the prior examination from 09/20/2019. Further characterization with MRCP could be of benefit. Correlate with hepatobiliary enzymes. 3. There is a 2 mm nonobstructing calculus in interpolar left kidney. No hydronephrosis. No obstructive uropathy. Electronically signed by: Rosaline Ni MD (12/08/2020 9:39 AM) [id number] Course & Med Decision Making: Course & Med Decision Making Pertinent Labs and Imaging studies reviewed. (See chart for details) The patient reports that she is feeling much better since her arrival. I spoken with her with respect to her laboratory as well as imaging results and advised that she drink fluids during this time and rest. Should she develop any fevers, intractable vomiting or new diarrhea I advised she return. I also advised she return with any new abdominal pain. I did speak specifically with her about the dilated pancreatic duct found on CT and advised that she follow-up with her primary care physician for further evaluation. The patient understands and states she will do so. She is nontoxic-appearing and stable for discharge. [] Dragon Disclaimer: Dragon Disclaimer: This electronic medical record was generated, in whole or in part, using a voice recognition dictation system. Departure Departure Impression: Primary Impression: Nausea & vomiting Additional Impressions: Right sided abdominal pain Pancreatic duct dilated Disposition: 01 HOME / SELF CARE / HOMELESS Condition: STABLE Referrals: NELL ROMEO (PCP) Patient Instructions: Abdominal Pain, Nausea and Vomiting Scripts Hydrocodone Bit/Acetaminophen (HYDROCODONE-APAP 5-325 ) 1 Tab Tablet 1 TAB PO PRN Q6HRS PRN for PAIN for 3 Days, #12 TAB 0 Refills Prov: LIANA PADILLA DO 12/08/20 Ondansetron Hcl (ZOFRAN) 4 Mg Tablet 1 TAB PO PRN Q6-8HRS for nausea, #12 TAB Prov: LIANA PADILLA DO 12/08/20 Problem Qualifiers LIANA PADILLA DO Dec 08, 2020 07:38
[2020-12-08] MEDS ORDERED: MORPHINE SULFATE 4 MG/ML INJ. IV/SQ PRN (07:45)
[2020-12-08] MEDS ORDERED: ONDANSETRON PF 4 MG/2 ML VIAL. IVP ONE (07:45)
[2020-12-08] MEDS ORDERED: IV NORMAL SALINE 1000ML BAG 1,000 ML IV SCH (07:45)
[2020-12-08 07:57] LABS: BILIRUBIN,URINE NEGATIVE (NEG); CLARITY,URINE CLEAR; COLOR,URINE YELLOW; NITRITE,URINE NEGATIVE (NEG); PH,URINE 5.5 (<5.0-8.0); PROTEIN,URINE NEGATIVE (NEG-TRACE)
[2020-12-08 08:11] LABS: BACTERIA,URINE FEW /HPF (0-FEW); RBC,URINE 0 /HPF (0-2)
[2020-12-08 08:23] LABS: BASO % 1 % (0-3); EOS # 0.2 x10^3/uL (0.0-0.7); EOS % 4 % (0-3); HEMATOCRIT 37.7 % (36.0-47.0); HEMOGLOBIN 12.8 g/dL (12.0-15.5); LYMPH # 1.3 x10^3/uL (1.0-4.8); LYMPH % 23 % (24-48); MEAN CORPUSCULAR HEMOGLOBIN 29 pg (25-35); MEAN CORPUSCULAR HGB CONC 34 g/dL (31-37); MEAN CORPUSCULAR VOLUME 85 fL (79-100); MONO # 0.3 x10^3/uL (0.0-1.1); MONO % 6 % (0-9); NEUT # 3.7 x10^3/uL (1.8-7.7); NEUT % 66 % (31-73); PLATELET COUNT 245 x10^3/uL (140-400); RED BLOOD COUNT 4.45 x10^6/uL (3.50-5.40); WHITE BLOOD COUNT 5.5 x10^3/uL (4.0-11.0)
[2020-12-08 08:43] LABS: CALCIUM 9.2 mg/dL (8.5-10.1); CREATININE 0.7 mg/dL (0.6-1.0); GFR 85.9; POTASSIUM 4.3 mmol/L (3.5-5.1)
[2020-12-08 08:47] LABS: ALBUMIN 3.6 g/dL (3.4-5.0); ALBUMIN/GLOBULIN RATIO 1.2 (1.0-1.7); TOTAL BILIRUBIN 0.7 mg/dL (0.2-1.0); TOTAL PROTEIN 6.7 g/dL (6.4-8.2)
[2020-12-08] MEDS ORDERED: IOHEXOL 300 MG/ML 100ML VIAL. IV ONE (09:00)
[2020-12-08] MEDS ORDERED: CONTRAST GIVEN. MC PRN (09:15)
--- NOTE | 2020-12-08 09:42 | RAD ---
PQRS Compliance Statement: One or more of the following individualized dose reduction techniques were utilized for this examinat ion: 1. Automated exposure control 2. Adjustment of the mA and/or kV according to patient size 3. Use of iterative reconstruction technique CT abdomen/pelvis with contrast 12/08/2020 9:01 AM INDICATION: Pain, vomiting COMPARISON: None available TECHNIQUE: Multiple axial CT images of the abdomen and pelvis were obtained after the intravenous adm inistration of 75 mL Omnipaque 300. Coronal and sagittal reformats are provided. FINDINGS: There is subsegmental atelectasis at the lung bases. Heart size is within normal limits. Liver, spleen, and adrenal glands are normal in appearance. Main pancreatic duct is dilated measuring 6 mm. There is mild to moderate atrophy of the pancreas. A definite pancreatic mass is not visualize d. No peripancreatic inflammatory changes are identified. Gallbladder surgically absent. Common bile duct measures up to 9 mm which may be within the limits of reservoir effect status post cholecystecto my. No significant intrahepatic bladder ductal dilatation. Portal venous system is patent. The abdominal aorta is normal in course and caliber. There are no pathologically enlarged lymph nodes in the abdomen and pelvis. There is no abdominal free fluid. There is no free intraperitoneal air. Small and large bowel are normal in caliber. There is no evidence for bowel obstruction. There are no pericolonic inflammatory changes. A normal, nondilated appendix is visualized without adjacent infla mmatory changes. The kidneys enhance symmetrically. There is no suspicious renal mass. There is no hydronephrosis. The re is suggestion of a 2 mm nonobstructing calculus in interpolar left kidney (series 4, image 36). Ur inary bladder is within normal limits given degree of distention. No suspicious pelvic mass. There is reverse S-shaped scoliosis of the thoracolumbar spine with moderate to advanced lumbar spond ylosis. IMPRESSION: 1. No acute abnormality is identified in abdomen and pelvis. Specifically, no bowel obstruction or in flammation. 2. There is dilatation of main pancreatic duct measuring up to 6 mm. No definite obstructive etiology is not visualized on this examination. Findings are stable from the prior examination from 09/20/2019 . Further characterization with MRCP could be of benefit. Correlate with hepatobiliary enzymes. 3. There is a 2 mm nonobstructing calculus in interpolar left kidney. No hydronephrosis. No obstructi ve uropathy. Electronically signed by: Rosaline Ni MD (12/08/2020 9:39 AM) [id number]
[2020-12-08] MEDS ORDERED: ONDA4TAB7 PO (09:59)
[2020-12-08] MEDS ORDERED: HYDR-2761 PO (09:59)
[2020-12-08 10:27] VITALS: BP 174/93
== END 2020-12-08 10:27 | disposition home or self-care (01) ==
LOC: ER 07:22
DX: R10.31 Right lower quadrant pain (principal); R11.2 Nausea with vomiting, unspecified; K86.89 Other specified diseases of pancreas
CPT/HCPCS: 36415; 74177; 80053; 81001; 83690; 85025; 87077; 87086; 96361; 96374; 96375; 99285; J2270; J2405; J7030; Q9967

== ENCOUNTER → 2020-12-29 | Outpatient (CLI) | payer OTHER ==
[2020-12-08 10:27] VITALS: BP 174/93
--- NOTE | 2020-12-30 09:10 | SLEEP ---
DATE OF STUDY: 12/29/2020 SLEEP STUDY ATTENDING PHYSICIAN: Ole Barclay MD REFERRING PHYSICIAN: Ana Rosa Patrick MD The patient is a 60-year-old who weighs 200 pounds. The patient's [place] score was 8. The patient underwent diagnostic sleep study performed at [facility]. During the night study, the patient spent 524 minutes in bed and slept for 452 minutes with sleep efficiency of 86%. Sleep latency was 28 minutes with a REM latency of 408 minutes. Sleep architecture showed increased stage 1 and stage 2 sleep, normal slow wave and reduced REM sleep, which was only 2% of total sleep time. During the night study, the patient had 5 obstructive apneas, 1 mixed apnea, 13 central apneas and 16 hypopneas. The patient's AHI was 5 per hour with a supine AHI of 5 per hour and a REM AHI of 16 per hour. EKG monitoring revealed normal sinus rhythm, average heart rate 75 beats per minute. No sustained arrhythmias observed. No significant PLMS seen. Nocturnal oximetry study revealed an average oxygen saturation 98% with a lowest of 87%. Five percent time oxygen saturation remained between 80 and 89%. Due to low AHI, the patient did not meet the split night criteria for CPAP initiation. IMPRESSION: 1. Mild obstructive sleep apnea with moderate increase during rapid eye movement sleep. The patient's total apnea-hypopnia index was 5 per hour with a rapid eye movement apnea-hypopnia index of 16 per hour. The patient had significantly reduced rapid eye movement sleep of only 2%, which could underestimate the severity of sleep apnea. 2. Mild nocturnal hypoxia secondary to obstructive sleep apnea. 3. No significant periodic limb movements of sleep. RECOMMENDATIONS: 1. If the patient is clinically symptomatic or has comorbid conditions, then consider treatment of sleep apnea with either CPAP versus oral appliance. 2. Once the patient is optimally treated, then follow up in 4-6 weeks to assess compliance with treatment and to document clinical improvement. 3. Avoid [employer] depressants. 4. Weight loss is advised. 5. Cautioned regarding driving until symptoms of sleep apnea resolve with above recommendations. ODETTE/DIMA DR: Zohreh TID: [id number] CC: ANA ROSA PATRICK MD, OLE BARCLAY MD
== END ==
LOC: SLPLAB 19:13
PROVIDERS: ATTEND Internal Medicine Pulmonary Disease
DX: G47.33 Obstructive sleep apnea (adult) (pediatric) (principal)
CPT/HCPCS: 95810

== ENCOUNTER → 2021-01-21 | Outpatient (CLI) | payer OTHER ==
[~2021-01-21] MED LIST changes: +CYCL10TA19 PO; -CYCL10TA2 PO; +TIZA-75 PO; -TIZA4TAB2 PO
--- NOTE | 2021-01-21 10:42 | RAD ---
EXAM: 1. Unilateral digital diagnostic 3-D mammography, left. 2. Left breast ultrasound. HISTORY: Six-month follow-up left breast asymmetry medially. TECHNIQUE: Left full field digital images were obtained in CC and MLO projections with tomosynthesis. Computer-aided detection was applied. Sonographic evaluation of the left breast was also performed. COMPARISON: 07/14/2020, 06/15/2018. COMPOSITION: C. The breasts are heterogeneously dense, which may obscure small masses. FINDINGS: The asymmetry posteriorly and medially on the left CC view is unchanged. It is more promine nt than in 2019, but appears parenchymal. Parenchymal density has also increased diffusely over this interval. Sonography of the entire medial breast reveals no suspicious correlate. An obscured nodule superolaterally on the left is stable and corresponds with a cyst at the 3:00 posi tion measuring 10 x 7 mm. Clinical artifact is noted within this lesion on Doppler, but no true perfu tash. Another complicated cyst at the 11:00 position 2 cm from the nipple is stable. Images of the le ft axilla reveal no abnormality. Scattered and coarse calcifications are benign. BI-RADS CATEGORY 3: Probably Benign. RECOMMENDATION: 1. The asymmetry of concern medially has increased since 2019, likely reflecting overall increased fr equency density. There is no sonographic correlate and upright while is favored. This could be follow ed mammographically when the patient returns for bilateral mammography in 6 months. Electronically signed by: Osman Haddad MD (01/21/2021 10:39 AM) [id number]
== END ==
LOC: MAMMO 09:29
PROVIDERS: ATTEND Family Medicine
DX: N60.02 Solitary cyst of left breast (principal)
CPT/HCPCS: 76641; 77065; G0279; 77061

== ENCOUNTER → 2021-03-09 | Outpatient (CLI) | payer OTHER ==
--- NOTE | 2021-03-10 09:20 | SLEEP ---
DATE OF STUDY: 03/09/2021 ATTENDING PHYSICIAN: Ole Barclay MD REFERRING PHYSICIAN: Duglas Ochoa MD The patient is 60-year-old who weighs 205 pounds with a BMI of 31. The patient had a sleep study previously and was found to have a mild SUPA with moderate increase during REM sleep. The patient spent only 2% of time in REM sleep, which may have underestimated the severity of sleep apnea. The patient was referred for CPAP titration study. During the night study, the patient spent 487 minutes in bed and slept for 469 minutes with a normal sleep efficiency of 96%. Sleep latency was 11 minutes with a REM latency of 247 minutes. Sleep architecture showed normal stage 1 sleep, increased stage 2 sleep, normal slow wave and reduced REM sleep. EKG monitoring revealed no significant arrhythmias. Average heart rate was 69 beats per minute. PLMs were seen at index of 74 per hour and 7 per hour caused EEG arousals. The patient was started on CPAP at 5 cm of water and titrated up to 13 cm of water. At the final pressure, the patient had complete resolution of obstructive apneas as well as hypopneas. There were some rebound central apneas causing an AHI to be 8 per hour. Oxygen saturation remained above 92%. IMPRESSION: 1. Sleep apnea diagnosed previously. 2. Severe periodic limb movements. RECOMMENDATIONS: 1. CPAP at 13 cm of water should be used on a nightly basis. The patient had supine as well as REM sleep on the final pressure. 2. Follow up in 4-6 weeks to assess compliance and to document clinical improvement. 3. Weight loss is advised. 4. Avoid TRAVEL [employer]UPATIONAL [employer]ER[employer]IST depressants. 5. Cautioned regarding driving until symptoms of sleep apnea resolve with the use of CPAP. 6. Patient has severe PLM. Patient should be further evaluated for symptoms of RLS during the day. KELLI DR: Zohreh TID: [id number] CC: OLE BARCLAY MD [facility]
== END ==
LOC: RT 19:02
PROVIDERS: ATTEND Family Medicine
DX: G47.33 Obstructive sleep apnea (adult) (pediatric) (principal); G47.61 Periodic limb movement disorder
CPT/HCPCS: 95811

== ENCOUNTER → 2021-04-07 | Outpatient (CLI) | payer OTHER ==
--- NOTE | 2021-04-07 16:48 | RAD ---
EXAM: Renal sonogram. HISTORY: Urinary retention. TECHNIQUE: Sonographic imaging the kidneys and bladder was performed. COMPARISON: None. FINDINGS: The kidneys are normal in size. No solid or cystic renal lesion is seen. There is suggestio n of superior left renal cortical scarring. However, this is not seen on all images and is likely art ifactual. There is no hydronephrosis. There is a post void bladder residual of 199 cc. The bladder is otherwise unremarkable. IMPRESSION: 1. Sonographically unremarkable kidneys. 2. Post void bladder residual of 199 cc. Electronically signed by: Sophy Macario MD (04/07/2021 4:46 PM) [id number]
== END ==
LOC: US 15:57
PROVIDERS: ATTEND Urology
DX: R33.8 Other retention of urine (principal); N30.20 Other chronic cystitis without hematuria
CPT/HCPCS: 76770